=== PATIENT | male | born 1935 | race Caucasian/White ===

== ENCOUNTER → 2017-12-18 09:00 | Outpatient (CLI) | payer OTHER, SELFPAY | PROVIDERS: PCP Nurse Practitioner Family; Visit Provider Orthopaedic Surgery | DX: G56.01 Carpal tunnel syndrome, right upper limb (principal); Z47.89 Encounter for other orthopedic aftercare; G56.02 Carpal tunnel syndrome, left upper limb | CPT/HCPCS: 99213 ==

== ENCOUNTER 2018-01-10 07:50 | Outpatient (CLI) | payer OTHER, SELFPAY ==
--- NOTE | 2018-01-10 07:40 | W.PM.HP.N ---
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 His symptoms are similar to his left hand where he underwent a successful left E CTR on 07/15/2017. H symptoms are not as severe and as long of duration as his left hand. He is not troubled by any nightly waking secondary to numbness. He has not tried any splint use and is not tried nsaids for this side. With the good response of his left hand to the eCTR he made a decision he did want to wait as long as he did before embarking on the right side. Review of Systems Cardiovascular Denies chest pain with activity, Reports edema, Denies irregular heart rhythm, Denies palpitations, Denies dyspnea on exertion and Denies paroxysmal nocturnal dyspnea Respiratory Denies chest congestion, Denies pain on inspiration and Denies dyspnea on exertion Gastrointestinal Denies abdominal pain Endocrine Denies palpitations PFSH Family History Mother No problems noted. Father Heart failure Hypertension Sister Lupus Medical History Atopic dermatitis HLD (hyperlipidemia) HTN (hypertension) Social History current occupational status: retired Smoking/Tobacco Use Status: Former Tobacco Use how long ago did patient quit smoking: quit: cigarettes (age 19), pipe (age 26), chewing tobacco (mid 30s) alcohol intake: current alcohol intake frequency: a few times a week Alcohol type: beer and hard liquor seatbelt use: always drive intox or ride w/ intox driver helper: No working smoke detector in home: Yes carbon monox detector in home: Yes Surgical History Hx of appendectomy (Chronic) History of total left hip arthroplasty (Resolved) Hx of lumbar discectomy (Resolved) Endoscopic Carpal Tunnel release (Resolved 07/15/17) Meds Home Medications Medication Instructions Recorded Confirmed Type melatonin-pyridoxine HCl (B6) 3 mg PO HS 07/27/14 01/10/18 History ht-hp-rixx-FA-herbal cmplx#190 1 ea PO DAILY tab 06/17/15 01/10/18 History [Vitamin D3 Complete] Beet Cap 1 - 2 cap PO DAILY PRN 06/19/17 01/10/18 History Beet Power 2 ea PO DAILY PRN 06/19/17 01/10/18 History ascorbic acid (vitamin C) [Vitamin 500 mg PO DAILY 06/19/17 01/10/18 History C] vitamin B complex 1 ea PO DAILY PRN 06/19/17 01/10/18 History zinc 50 mg PO DAILY PRN 06/19/17 01/10/18 History saw palmetto-pumpkin seed oil 160 mg PO DAILY 07/11/17 01/10/18 History lisinopril 20 mg PO .TAKES Q4DAY A WEEK 01/10/18 01/10/18 History Allergies Allergy/AdvReac Type Severity Reaction Status Date / Time hydrochlorothiazide AdvReac Intermediate urinary Unverified 01/10/18 09:05 frequency, leg cramps CATS Allergy Severe BREATHING, Uncoded 01/10/18 09:05 SNEEZING, BURNING EYES Exam Const General: cooperative and no acute distress Nutritional Appearance: average body habitus Limitations: no behavioral limitations [facility] General nose exam: no nasal discharge Mouth: oral mucosae normal Neck Neck: anterior neck swelling, no JVD and other (no carotid bruits) Carotids: normal carotid upstroke and no bruits Resp Effort & Inspection: no audible wheezes and no cough Auscultation: clear to auscultation bilaterally Cardio Rate: regular rate Rhythm: regular rhythm Heart Sounds: S2 normal Bruits: no abdominal aortic bruits GI Inspection: normal to inspection Palpation: soft Other: Right hand shows no thenar atrophy there is positive Tinel's along with a positive median nerve compression test and Phalen's. He has subjective numbness in the median nerve innervated rays.
--- NOTE | 2018-01-10 07:45 | HPE_ITS ---
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 His symptoms are similar to his left hand where he underwent a successful left E CTR on 07/15/2017. H symptoms are not as severe and as long of duration as his left hand. He is not troubled by any nightly waking secondary to numbness. He has not tried any splint use and is not tried nsaids for this side. With the good response of his left hand to the eCTR he made a decision he did want to wait as long as he did before embarking on the right side. Review of Systems Cardiovascular Denies chest pain with activity, Reports edema, Denies irregular heart rhythm, Denies palpitations, Denies dyspnea on exertion and Denies paroxysmal nocturnal dyspnea Respiratory Denies chest congestion, Denies pain on inspiration and Denies dyspnea on exertion Gastrointestinal Denies abdominal pain Endocrine Denies palpitations PFSH Family History Mother No problems noted. 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 working smoke detector in home: Yes carbon monox detector in home: Yes Surgical History Hx of appendectomy (Chronic) History of total left hip arthroplasty (Resolved) Hx of lumbar discectomy (Resolved) Endoscopic Carpal Tunnel release (Resolved 07/15/17) Meds Home Medications Medication Instructions Recorded Confirmed Type melatonin-pyridoxine HCl (B6) 3 mg PO HS 07/27/14 01/10/18 History [id number]-kr-dgvb-FA-herbal cmplx#190 1 ea PO DAILY tab 06/17/15 01/10/18 History [Vitamin D3 Complete] Beet Cap 1 - 2 cap PO DAILY PRN 06/19/17 01/10/18 History Beet Power 2 ea PO DAILY PRN 06/19/17 01/10/18 History ascorbic acid (vitamin C) [Vitamin 500 mg PO DAILY 06/19/17 01/10/18 History C] vitamin B complex 1 ea PO DAILY PRN 06/19/17 01/10/18 History zinc 50 mg PO DAILY PRN 06/19/17 01/10/18 History saw palmetto-pumpkin seed oil 160 mg PO DAILY 07/11/17 01/10/18 History lisinopril 20 mg PO .TAKES Q4DAY A WEEK 01/10/18 01/10/18 History Allergies Allergy/AdvReac Type Severity Reaction Status Date / Time hydrochlorothiazide AdvReac Intermediate urinary Unverified 01/10/18 09:05 frequency, leg cramps CATS Allergy Severe BREATHING, Uncoded 01/10/18 09:05 SNEEZING, BURNING EYES Exam Const General: cooperative and no acute distress Nutritional Appearance: average body habitus Limitations: no behavioral limitations [facility] General nose exam: no nasal discharge Mouth: oral mucosae normal Neck Neck: anterior neck swelling, no JVD and other (no carotid bruits) Carotids: normal carotid upstroke and no bruits Resp Effort & Inspection: no audible wheezes and no cough Auscultation: clear to auscultation bilaterally Cardio Rate: regular rate Rhythm: regular rhythm Heart Sounds: S2 normal Bruits: no abdominal aortic bruits GI Inspection: normal to inspection Palpation: soft Other: Right hand shows no thenar atrophy there is positive Tinel's along with a positive median nerve compression test and Phalen's. He has subjective numbness in the median nerve innervated rays.
== END 2018-01-10 08:10 ==
PROVIDERS: PCP Nurse Practitioner Family; Visit Provider Orthopaedic Surgery
DX: G56.01 Carpal tunnel syndrome, right upper limb (principal); Z01.818 Encounter for other preprocedural examination

== ENCOUNTER 2018-02-03 08:31 | Day surgery (SDC) | payer OTHER, BC, SELFPAY ==
[2018-02-03 09:16] VITALS: BP 201/110; PULSE 86; RESP 16; TEMP 36.3; O2SAT 100
[2018-02-03] MEDS: Lactated Ringers 1,000 ML 80 ML IV (09:45)
--- NOTE | 2018-02-03 11:26 | PDOC.DSDIS_ITS ---
Discharge Plan Disposition Patient Disposition: HOME Condition: Good Discharge Details Attending Provider: Cristóbal Au Primary Care Provider: Bibi Schwab Home Meds and New Rx's Prescriptions: New hydrocodone-acetaminophen 5-325 mg tablet 1 tab PO Q6H PRN (Reason: pain) Qty: 7 RF: 0 Continue melatonin-pyridoxine HCl (B6) 1 EACH tablet 3 mg PO HS RF: 0 du-oe-rjtj-FA-herbal cmplx#190 [Vitamin D3 Complete] 1 EACH tablet 1 ea PO DAILY RF: 0 ascorbic acid (vitamin C) [Vitamin C] 500 MG tablet 500 mg PO DAILY RF: 0 zinc 50 MG tablet 50 mg PO DAILY PRNRF: 0 vitamin B complex 1 EACH capsule 1 ea PO DAILY PRNRF: 0 Beet Cap 1 - 2 cap PO DAILY PRNRF: 0 Beet Power 2 ea PO DAILY PRNRF: 0 saw palmetto-pumpkin seed oil 160 MG capsule 160 mg PO DAILY RF: 0 lisinopril 30 mg tablet 20 mg PO DAILY RF: 0 Discharge Instructions Additional Instructions: Elevate R hand above heart level as much as possible overnite tonite. Wiggle fingers R hand 10 times/hour when awake to prevent swelling. Take tylenol or ibuprofen for mild pain. Take hydrocodone for breakthru pain. Your fingers may feel more numb for 24 hours due to nerve block I put in to decrease post-op pain. Remove dressings and splint and start to move R wrist in 48 hours. May then shower or bathe and get incision wet. Leave incision uncovered when it is dry and sealed. May use R hand as much as your discomfort allows. Referrals: Cristóbal Au MD [ [facility] STAFF PHYSICIAN] - (Follow up in 10-14 days.) Equipment/Supplies: Splint Activity:: Activity as Tolerated Remove Dressings/Wound Care:: 48 hours Shower/Bathe:: 48 hours Diet:: As Tolerated Discharge Orders Discharge Orders: Discharge Order (Routine); Ordered 02/03/18 Ordered By: Cristóbal Au DS: Diagnosis Discharge Diagnosis (1) 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: Start date: 02/03/18 Start time: 11:25 Status: Acute
[2018-02-03 11:41] VITALS: BP 174/71; PULSE 77; RESP 16; TEMP 37.6; O2SAT 97
--- NOTE | 2018-02-03 20:03 | ROE_ITS ---
DATE OF PROCEDURE: February 03, 2018 PREOPERATIVE DIAGNOSIS: Carpal tunnel syndrome, right. POSTOPERATIVE DIAGNOSIS: Carpal tunnel syndrome, right. PROCEDURE: Endoscopic carpal tunnel release, right. SURGEON: Cristóbal Au M.D. ANESTHESIA: MAC to supplement local infiltration with 0.5% Marcaine with epinephrine solution by Luis Lomeli CRNA INDICATIONS: This is an 82-year-old white male with longstanding carpal tunnel syndrome on the right . He had reached the point that conservative measures were not alleviating the symptoms. He had had a previous endoscopic carpal tunnel release on the left with good results. He wished to have the sa me procedure on the right side to hopefully decrease his discomfort and improve his sensation in the median nerve distribution of the right hand. The risks and complications of the procedure were expla ined to the patient in detail preoperatively. PROCEDURE: Because of the patient's elevated diastolic blood pressure, MAC anesthesia with local inf iltration was selected. The patient's blood pressure was nicely controlled at 140/80 with the MAC. The right hand, wrist, and forearm were prepped and draped in the usual sterile fashion. A proximal tourniquet was applied to the right upper extremity and the right upper extremity was then exsanguina angelita by elevation for two minutes and then the tourniquet was inflated to 250 mmHg. I infiltrated over the proximal flexion crease of the right wrist with 0.5% Marcaine with epinephrine solution from the flexor carpal ulnaris to the to the flexor carpi radialis tendon. A transverse in cision was made in line with the flexion crease extending from the flexor carpi radialis to the flexo r carpi ulnaris tendon. The incision was carried down to the fascia. Subcutaneous veins were cauter ized. A distally-based fascial flap was then created to gain access to the carpal canal. I then per formed a median nerve block with 0.5% Marcaine with epinephrine solution for further analgesia. A synovial reflector was then inserted to free up any synovium attached to the undersurface of the vo lar carpal ligament. A series of obturators were inserted to make room for the endoscope. The April endoscope blade device was then inserted into the carpal canal. The endoscope was positioned against the hook of the hamate and then advanced until the distal edge of the volar carpal ligament was sam r visualized. At this point, the trigger was depressed, elevating the blade, and then the elevated blade was withdr awn proximally out through the incision, transecting the volar carpal ligament. The endoscope was th en replaced into the carpal canal and the median nerve was seen to fall into the defect caused by tra nsecting the volar carpal ligament. The endoscope was then removed. Littler scissors were then used to perform for a subcutaneous fasciotomy for about 2 inches proximal to the incision. The skin edges were approximated with two interrupted horizontal mattress sutures of #4-0 nylon sutur e material. Sterile dressings were applied of Xeroform gauze, sterile gauze 4x4s, and wrapped with a Kerlix bandage. It was then wrapped with a 3-inch Mitchell bandage and placed in a cock-up commercial wr ist splint. The tourniquet was released. The patient tolerated the procedure well. He was discharg ed to Recovery in good condition. The patient was discharged home from the Day Surgery Unit when fully recovered from his MAC anesthesi a. He was given instructions to elevate his right hand above heart level as much as possible overnig ht tonight. He is encouraged to wiggle his fingers on the right hand 10 times an hour while awake to prevent swelling. After 48 hours he is to remove his splint and dressings and begin to move his rig ht wrist. He may shower and get his incision wet after 48 hours. He is to leave the incision uncove red when it is dry and sealed. He may use his right hand as much as discomfort allows. He is given a prescription of 7 tablets of hydrocodone/APAP 5 mg/325 mg, 1 p.o. q.6h. p.r.n. for pain. He will f ollow up in Dr. Au's office in 10 to 14 days.
== END 2018-02-03 12:02 | disposition home or self-care (01) ==
PROVIDERS: PCP Nurse Practitioner Family; Visit Provider Orthopaedic Surgery
PROC: 01N54ZZ Release Median Nerve, Percutaneous Endoscopic Approach (ICD-10-PCS; CPT 29848; principal; 2018-02-03 10:00)
DX: G56.01 Carpal tunnel syndrome, right upper limb (principal)
CPT/HCPCS: 29848; J0690; J3010; L3908

== ENCOUNTER → 2018-02-13 09:50 | Outpatient (BNVA) | payer MEDICARE, BC, SELFPAY | PROVIDERS: PCP Nurse Practitioner Family; Referring Provider Nurse Practitioner Family; Visit Provider Orthopaedic Surgery | DX: G56.01 Carpal tunnel syndrome, right upper limb (principal); Z47.89 Encounter for other orthopedic aftercare ==

== ENCOUNTER 2018-06-09 16:51 | Outpatient (CLI) | payer OTHER, SELFPAY ==
--- NOTE | 2018-06-09 13:00 | DI.RAD_ITS ---
SYMPTOM/DIAGNOSIS: ? FOREIGN BODY, ? PLANTAR FASCITIS, M79.672, LT FOOT PAIN LEFT FOOT: Three views. No priors for comparison. No acute fracture or dislocation is seen. There are mild degenerative changes of the foot, particularly at the tarsal metatarsal joints and the intertarsal joints of the foot. There are also degenerative changes seen at the articulation between the sesamoids and the head of the first metatarsal. No radio-opaque foreign bodies are seen in the soft tissues. Vascular calcifications are present. IMPRESSION: No radio-opaque foreign body is seen in the soft tissues.
== END 2018-06-09 17:11 ==
PROVIDERS: PCP Nurse Practitioner Family; Visit Provider Nurse Practitioner Family
DX: M79.672 Pain in left foot (principal); M19.072 Primary osteoarthritis, left ankle and foot
CPT/HCPCS: 73630

== ENCOUNTER 2018-06-24 07:12 | Outpatient (CLI) | payer OTHER, BC, SELFPAY ==
[2018-06-24 08:45] LABS: Anion Gap 9.8 mmol/L (3-11); BUN 16 mg/dL (7-18); CO2 28.2 mmol/L (21.0-32.0); CREATININE 0.97 mg/dL (0.70-1.30); Calcium 9.2 mg/dL (8.5-10.1); Chloride 101 mmol/L (98-107); Glucose 93 mg/dL (70-100); Potassium 4.1 mmol/L (3.5-5.1); Sodium 139 mmol/L (136-145)
== END 2018-06-24 07:32 ==
PROVIDERS: PCP Nurse Practitioner Family; Visit Provider Nurse Practitioner Family
DX: I10 Essential (primary) hypertension (principal)
CPT/HCPCS: 36415; 80048

== ENCOUNTER → 2018-08-06 08:49 | Outpatient (BNVA) | payer OTHER, BC, SELFPAY | PROVIDERS: PCP Nurse Practitioner Family; Referring Provider Nurse Practitioner Family; Visit Provider Orthopaedic Surgery | DX: Z47.89 Encounter for other orthopedic aftercare (principal); G56.01 Carpal tunnel syndrome, right upper limb | CPT/HCPCS: 99212; 99213 ==

== ENCOUNTER 2019-11-15 14:33 | Emergency (ER) | payer OTHER, BC, SELFPAY ==
[2019-11-15 14:40] VITALS: BP 187/87; PULSE 111; RESP 20; TEMP 37.1; O2SAT 96
--- NOTE | 2019-11-15 14:50 | ED.GENADUL_ITS ---
Discharge Plan Disposition Patient Disposition: HOME Condition: Improving Discharge Details Chief Complaint: EarProblem Clinical Impression: Bilateral hearing loss due to cerumen impaction Primary Care Provider: Bibi Schwab ED Provider: Anna Aaron Home Meds and New Rx's Prescriptions: No Action metoprolol succinate 25 mg tablet extended release 24 hr 25 mg PO DAILY Qty: 90 RF: 3 melatonin-pyridoxine HCl (B6) 1 EACH tablet 3 mg PO HS RF: 0 Vitamin D3 Complete 1 EACH tablet 1 ea PO DAILY RF: 0 ascorbic acid (vitamin C) [Vitamin C] 500 MG tablet 500 mg PO DAILY RF: 0 zinc 50 MG tablet 50 mg PO DAILY PRNRF: 0 vitamin B complex 1 EACH capsule 1 ea PO DAILY PRNRF: 0 Beet Cap 1 - 2 cap PO DAILY PRNRF: 0 Beet Power 2 ea PO DAILY PRNRF: 0 saw palmetto-pumpkin seed oil 160 MG capsule 160 mg PO DAILY RF: 0 Discharge Instructions Instructions: Cerumen Impaction (ED) Additional Instructions: Follow up with primary care provider in 3-5 days. Return to ED sooner if any worsening or concerns. Increase oral fluids. Referrals: Bibi Schwab, MARY [Primary Care Provider] - Medical Decision Making 1534: Bilateral ears irrigated by our nursing staff patient tolerated well. Pr ocedure was successful. Was able to visualize bilateral tympanic membranes, non-erythemic nonbulging are both within normal limits patient reports increased hearing to bilateral ears. Patient to be discharged home with follow-up with primary care provider. HPI General Mode of arrival: ambulatory . Date/Time Provider Initiated Documentation: 11/15/19 14:35 . Limitations to Documentation: no limitations and physical limitation . Information obtained by: patient . HPI Narrative: 84-year-old male presents to the ER due to increased trouble hearing last 2 days. Reports cerumen impaction when she try to get out with a Q-tip which is unsuccessful. She has no other complaints at this time. He does present with some hypertension which he has not been taking any blood pressure medications and has not seen his primary care in the last year and a half. Initial exam bilateral ear canals are impacted with cerumen, denies any ear pain or any other complaints at this time denies any sore throat, chest pain, shortness of breath or URI type symptoms. Related Data Home Medications Medication Instructions Recorded Confirmed melatonin-pyridoxine HCl (B6) 3 mg PO HS 07/27/14 11/15/19 Vitamin D3 Complete 1 ea PO DAILY tab 06/17/15 11/15/19 Beet Cap 1 - 2 cap PO DAILY PRN 06/19/17 11/15/19 Beet Power 2 ea PO DAILY PRN 06/19/17 11/15/19 ascorbic acid (vitamin C) [Vitamin 500 mg PO DAILY 06/19/17 11/15/19 C] vitamin B complex 1 ea PO DAILY PRN 06/19/17 11/15/19 zinc 50 mg PO DAILY PRN 06/19/17 11/15/19 saw palmetto-pumpkin seed oil 160 mg PO DAILY 07/11/17 11/15/19 metoprolol succinate 25 mg 25 mg PO DAILY #90 tab-cap 07/02/19 07/02/19 tablet,extended release 24 hr Previous Rx's Medication Instructions Recorded metoprolol succinate 25 mg 25 mg PO DAILY #90 tab-cap 07/02/19 tablet,extended release 24 hr Allergies Allergy/AdvReac Type Severity Reaction Status Date / Time hydrochlorothiazide AdvReac Intermediate urinary Unverified 11/15/19 14:50 frequency, leg cramps CATS Allergy Severe BREATHING, Uncoded 11/15/19 14:50 SNEEZING, BURNING EYES General Stated Complaint: EarProblem ROM: 4 Review of Systems All systems reviewed & are unremarkable except as noted in HPI and below Constitutional Constitutional: Denies headache(s) ENT Ears, Nose, Mouth, and Throat: Denies ear discharge, Denies otalgia, Denies headache(s), Reports hearing loss (Bilateral cerumen impaction) and Denies odynophagia Gastrointestinal Gastrointestinal: Denies odynophagia Neurologic Neurologic: Denies headache(s) [facility] Medical History 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) Atopic dermatitis (Chronic 07/13/13) Essential hypertension (Chronic 03/22/14) declines ANY medications consistently Heel pain, chronic (Chronic) Hyperlipidemia (Chronic 10/29/14) risk calc 45.8% with BP 180 10/29/14; declines meds; Lifestyle: eats lots of fish, fruit, veg, blue berries, no sugar Paresthesia of hand (Chronic 01/25/14) L>>R, nocturnal, ?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 No problems noted. 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 Working smoke detector in home: Yes Carbon monox detector in home: Yes Do you feel safe at home: Yes Do you feel safe in your relationship?: Yes Exam HENMT Head: normal to inspection Ears: external ears normal and unable to visualize TM bilaterally (Cerumen impaction) General nose exam: external nose normal Face and sinus: normal facial exam Mouth: oral mucosae normal Course Vital Signs Vital signs: Vital Signs Temperature 37.1 C 11/15/19 14:40 Pulse 111 H 11/15/19 14:40 Respiratory Rate 11/15/19 14:40 Blood Pressure 187/87 H 11/15/19 14:40 Pulse Oximetry 96 11/15/19 14:40 Temperature 37.1 C 11/15/19 14:40 Temperature Source Skin 11/15/19 14:40 Pulse 111 H 11/15/19 14:40 Respiratory Rate 20 11/15/19 14:40 Respiratory Effort Non-Labored 11/15/19 14:47 Blood Pressure 187/87 H 11/15/19 14:40 Blood Pressure Position Sitting 11/15/19 14:40 Pulse Oximetry 96 11/15/19 14:40 Oxygen Delivery Method Room Air 11/15/19 14:40 Oxygen Flow Rate 0 11/15/19 14:40
[2019-11-15 15:42] VITALS: BP 176/89; PULSE 99; RESP 20; TEMP 36.8; O2SAT 96
== END 2019-11-15 15:45 | disposition home or self-care (01) ==
PROVIDERS: Emergency Provider Registered Nurse Emergency; PCP Nurse Practitioner Family
DX: H61.23 Impacted cerumen, bilateral (principal); I10 Essential (primary) hypertension
CPT/HCPCS: 69209; 99282

== ENCOUNTER 2021-10-08 20:54 | Inpatient (IN) | payer MEDICARE, SELFPAY ==
[2021-10-08] VITALS (29 sets, daily range): BP systolic 121–156; BP diastolic 65–131; PULSE 104–125; RESP 13–28; TEMP 36.8; O2SAT 95–99
--- NOTE | 2021-10-08 20:45 | DI.CT_ITS ---
Exam(s) CT HEAD WO EXAM: CT HEAD WO CLINICAL HISTORY: found down, fall. TECHNIQUE: Imaging Protocol: Axial computed tomography images with coronal and sagittal reformatted images were created and reviewed COMPARISON: No exams were available for comparison FINDINGS: The examination is limited due to patient motion artifact. Ventricles and Extra axial spaces: Normal in size and morphology for the patient's age. Hemorrhage: None. Cerebral parenchyma: There is no acute territorial infarct identified. There are areas of decreased attenuation in the white matter most consistent with small vessel ischemic disease. Midline shift: None. Brainstem/Cerebellum: Normal. Calvarium: Normal. Visualized Paranasal sinuses/Mastoids: Clear. Soft Tissues: Unremarkable. IMPRESSION: No acute intracranial process. RADIATION DOSE DELIVERED: 1,397.43mGy.cm Total DLP DATA REPOSITORY: All CT scans at this facility are submitted to the National Radiology Data Registry (NRDR) Dose Index Registry (DIR) with the [employer] [place] (A[employer]). RADIATION OPTIMIZATION: All CT scans at this facility use at least one of these dose optimization te chniques: automated exposure control; mA and/or kV adjustment per patient size (includes targeted exa ms where dose is matched to clinical indication); or iterative reconstruction.
--- NOTE | 2021-10-08 20:45 | RT.EKG_ITS ---
APPROVED REPORT Exam: Resting ECG Reason for Exam: rapid heart rate Patient Location: E HR:118 bpm ECG Measurements Heart Rate 118 AXIS HI 131 P 60 QRSd 89 QRS 2 QT 327 T 35 QTc 459 Conclusion Sinus tachycardia...rate> 99 Atrial premature complex...SV complex w/ short R-R interval Inferior infarct, old...Q >35mS, II III aVF sinus tachycardia, left axis, non ischemic
--- NOTE | 2021-10-08 20:45 | DI.RAD_ITS ---
Exam(s) XR PELVIS AP EXAM: XR PELVIS AP CLINICAL HISTORY: foudn down. TECHNIQUE: 2D digital imaging was performed. One view is obtained. COMPARISON: No exams were available for comparison FINDINGS: BONES: No acute fracture is present. No bony destructive lesion is seen. The bones are osteopenic. JOINTS: No dislocation present. There are degenerative changes seen in the lower lumbar spine in the right hip. The patient has a left total hip replacement. The distal femoral stem is not included on the examination. Portions of the left greater trochanter are not well visualized due to technique. SOFT TISSUE: Atherosclerosis is present. IMPRESSION: No acute fracture or dislocation. DATA REPOSITORY: RADIATION DOSE DELIVERED:
--- NOTE | 2021-10-08 21:00 | RT.EKG_ITS ---
APPROVED REPORT Exam: Resting ECG Reason for Exam: tachycardia Patient Location: E HR:123 bpm ECG Measurements Heart Rate 123 AXIS ME 136 P 46 QRSd 77 QRS -15 QT 336 T 25 QTc 482 Conclusion Sinus tachycardia...rate> 99 Supraventricular bigeminy...bigeminy string>4 w/ SV complexes Inferior infarct, old...Q >35mS, II III aVF sinus tachycardia, left axis, normal intervals, PAC, non ischemic
--- NOTE | 2021-10-08 21:01 | DI.RAD_ITS ---
Exam(s) XR CHEST 1V IN DI DEPT EXAM: XR CHEST 1V IN DI DEPT CLINICAL HISTORY: found down, tachycardia TECHNIQUE: 2D digital imaging was performed of the chest. One image was obtained. An AP view was ob tained. COMPARISON: There are no priors for comparison. FINDINGS: MEDIASTINUM: Normal. HEART: Normal. PULMONARY VASCULATURE: Normal. LUNGS: Clear. PLEURAL SPACE: No pleural effusion or pneumothorax. BONE:Within normal limits for the patient's age. OTHER FINDINGS:Normal. IMPRESSION: No acute pulmonary findings. DATA REPOSITORY: RADIATION DOSE DELIVERED:
--- NOTE | 2021-10-08 21:03 | W.ED.GENAD ---
Discharge Plan Disposition Patient Disposition: [facility] INPATIENT Condition: Fair Discharge Details Chief Complaint: GenMedical Clinical Impression: Rhabdomyolysis, Dehydration, Acute UTI Primary Care Provider: Bibi Schwab ED Provider: Flip Olvera Home Meds and New Rx's Prescriptions: No Action metoprolol succinate 25 mg tablet extended release 24 hr 25 mg PO DAILY Qty: 90 3RF melatonin-pyridoxine HCl (B6) 1 EACH tablet 3 mg PO HS Vitamin D3 Complete 1 EACH tablet 1 ea PO DAILY Label Comments: takes vitamin B, C, D, E ascorbic acid (vitamin C) [Vitamin C] 500 MG tablet 500 mg PO DAILY zinc 50 MG tablet 50 mg PO DAILY PRN vitamin B complex 1 EACH capsule 1 ea PO DAILY PRN Label Comments: 10/09/17 Does not take regularly. zn Rx Instructions: Takes irregularly Beet Cap 1 - 2 cap PO DAILY PRN Beet Power 2 ea PO DAILY PRN saw palmetto-pumpkin seed oil 160 MG capsule 160 mg PO DAILY Medical Decision Making 86-year-old male no past medical history found down at home, endorses he fell and has been on the ground for approximately 1 to 2 days, alert moving all extremities however appears severely dehydrated, dry oral mucosa poor skin turgor, superficial abrasions to bilateral elbows and knees, covered in urine, conjunctiva normal, responding appropriately, sinus tachycardia with possible ST elevation leads II, III, aVF without reciprocal changes deep Q waves in inferior leads concerning for possible old infarct, consider mechanical fall versus PE versus dehydration versus electrolyte abnormality versus must consider ACS versus infectious etiology given tachycardia and fever such as pneumonia UTI or viral syndrome, low suspicion for CVA or intracranial hemorrhage however given age and trauma will obtain CT head, also obtain chest x-ray pelvic x-ray, labs blood cultures CK level urinalysis drug screen, will require hydration, was given aspirin in the field given questionable ST elevations on monitor; patient denies chest pain at this time. Will likely be admitted for hydration and further evaluation. 00: 18 patient resting comfortably, improvement of mental status, persistently tachycardic will require more hydration given rhabdo. Close monitoring fluid hydration trend of troponin, Dr. Moses will be starting ceftriaxone for UTI HPI General Date/Time Provider Initiated Documentation: 10/08/21 20:59. HPI Narrative: 86-year-old male unclear past medical history presents found down at home, endorses falling while cooking breakfast 1 to 2 days ago; denies current complaints such as headache chest pain abdominal pain nausea vomiting, found to be febrile here in the field, fingerstick normal, tachycardia Related Data Home Medications Medication Instructions Recorded Confirmed melatonin-pyridoxine HCl (vitamin 3 mg PO HS 07/27/14 11/15/19 B6) 3 mg-10 mg tablet multivit with 1 ea PO DAILY 06/17/15 11/15/19 [id number] 18 mg iron-800 mcg-150 mg tablet (Vitamin D3 Complete) Beet Cap 1 - 2 cap PO DAILY PRN 06/19/17 11/15/19 Beet Power 2 ea PO DAILY PRN 06/19/17 11/15/19 ascorbic acid (vitamin C) 500 mg 500 mg PO DAILY 06/19/17 11/15/19 tablet (Vitamin C) vitamin B complex 1 ea PO DAILY PRN 06/19/17 11/15/19 zinc 50 mg tablet 50 mg PO DAILY PRN 06/19/17 11/15/19 saw palmetto-pumpkin seed oil 160 160 mg PO DAILY 07/11/17 11/15/19 mg capsule metoprolol succinate 25 mg 25 mg PO DAILY #90 tab-caps 07/02/19 07/02/19 tablet,extended release 24 hr Previous Rx's Medication Instructions Recorded metoprolol succinate 25 mg 25 mg PO DAILY #90 tab-caps 07/02/19 tablet,extended release 24 hr Allergies Allergy/AdvReac Type Severity Reaction Status Date / Time hydrochlorothiazide AdvReac Intermediate urinary Unverified 10/08/21 21:05 frequency, leg cramps CATS Allergy Severe BREATHING, Uncoded 10/08/21 21:05 SNEEZING, BURNING EYES General Stated Complaint: GenMedical ROM: 2 Review of Systems Narrative: Review of Systems Constitutional: Generalized weakness Eyes: negative ENT: negative Cardiovascular: Tachycardia Respiratory: negative Gastrointestinal: negative : negative Musculoskeletal: negative Skin: Abrasions Neurologic: negative Psych: negative PFSH All Active Problems (Updated 10/09/21 @ 00:20 by Flip Olvera MD) Rhabdomyolysis (Acute) Dehydration (Acute) Acute UTI (Acute) Snoring (Chronic) 01/2018: declines Sleep Medicine eval; 06/2019: continues to decline 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) Heel pain, chronic (Chronic) Paresthesia of hand (Chronic 01/25/14) L>>R, nocturnal, ?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 (also h/o laceration L thumb); 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 No problems noted. 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 Working smoke detector in home: Yes Carbon monox detector in home: Yes Do you feel safe at home: Yes Do you feel safe in your relationship?: Yes Exam Narrative Exam Narrative: Physical Examination General: alert, awake, cooperative, appears dry HEENT: normocephalic, atraumatic; PERRL, EOM intact, conjunctiva normal; no nasal discharge; dry oral mucosa Neck: supple, trachea midline; full ROM Chest: normal to inspection Respiratory: normal respiratory effort, speaking in full sentences, clear to auscultation, no wheezing, rales or rhonchi Cardiac: Tachycardia, regular rhythm, S1S2 intact, no murmurs rubs or gallops GI: abdomen soft, non-tender, non-distended; no palpable mass or hepatosplenomegaly Skin: Superficial abrasions to bilateral knees and bilateral elbows; poor skin turgor Neuro: AAOx3, normal speech, moving all extremities, no focal deficits cranial nerves II through XII intact Extremities: No peripheral edema Psych: Appropriate mood and affect Course Vital Signs Vital signs: Vital Signs Temperature 36.8 C 10/08/21 20:54 Pulse 125 H 10/08/21 20:54 Respiratory Rate 24 10/08/21 20:54 Blood Pressure 151/80 H 10/08/21 20:54 Temperature 36.8 C 10/08/21 20:54 Temperature Source Oral 10/08/21 20:54 Pulse 125 H 10/08/21 20:54 Respiratory Rate 24 10/08/21 20:54 Blood Pressure 151/80 H 10/08/21 20:54 Blood Pressure Position Supine 10/08/21 20:54 Oxygen Delivery Method Room Air 10/08/21 20:54 Oxygen Flow Rate 0 10/08/21 20:54 Pain Level 1 10/08/21 20:54 Lab/Test Results Lab/Test Results: 10/08/21 21:02 Blood Blood Culture - Pending 10/08/21 21:02 Blood Blood Culture - Pending
[2021-10-08 21:13] LABS: BE (Venous) 0 mmol/L (-2-3); HCO3 (Venous) 25 mmol/L (23-28); O2 Sat (Venous) 47 %; TCO2 (Venous) 22 mmol/L (24-29); pCO2 (Venous) 40 mmHg (41-51); pO2 (Venous) 25 mmHg
[2021-10-08 21:14] LABS: Abs Immature Grans 0.09 10^3/uL (0.0-0.06); Absolute Basophil Count 0.03 10^3/uL (0.0-0.2); Absolute Monocyte Count 1.53 10^3/uL (0.1-0.8); Basophils % 0.2; HCT 47.7 % (40.0-50.0); HGB 16.3 g/dL (13.5-17.5); Immature Grans % 0.6; Lymphocytes % 4.1; MCH 32.5 pg (27.0-33.0); MCHC 34.2 % (32.0-36.0); MCV 95 fL (80-95); MPV 10.3 fL (8.0-11.0); Monocytes % 9.7; Neutrophils % 85.4; Platelet Count 165 10^3/uL (130-400); RBC 5.01 10^6/uL (4.36-5.78); RDW 13.4 % (11.8-14.1); RDW-SD 47.5 fL; WBC 15.79 10^3/uL (4.4-10.8)
[2021-10-08 21:21] LABS: Absolute Lymphocyte Count 0.65 10^3/uL (1.2-3.4); Absolute Neutrophil Count 13.48 10^3/uL (1.2-6.7)
[2021-10-08 21:26] LABS: Bilirubin Moderate (Negative); Blood Large (Negative); Clarity Cloudy (Clear); Glucose Negative (Negative); Ketones 40 mg/dL (Negative); Leukocyte Esterase Negative (Negative); Nitrite Negative (Negative); Specific Gravity >= 1.030 (1.005-1.025); Urobilinogen 0.2 EU/dL (Up TO 0.2)
[2021-10-08 21:30] LABS: Diff Comment Diff Reviewed; RBC Morphology Normal
[2021-10-08 21:32] LABS: INR 1.1 (0.9-1.1); PTT Activated 28.6 sec (21.0-27.5); Prothrombin Time 11.2 sec (9.3-11.0)
[2021-10-08 21:34] LABS: Epithelial Cells Negative HPF (Negative)
[2021-10-08 21:35] LABS: Bacteria Negative HPF (Negative); C & S Indicated? Yes; Crystals Moderate Amorphous HPF (Negative); Mucus Moderate (Negative); Other Cells Few Transitional (Negative)
[2021-10-08 21:37] LABS: ALT 113 U/L (16-63); AST 231 U/L (15-37); Albumin 3.1 g/dL (3.4-5.0); Alkaline Phosphatase 59 U/L (46-116); Anion Gap 12.2 mmol/L (3-11); BUN 32 mg/dL (7-18); CO2 25.8 mmol/L (21.0-32.0); CREATININE 1.3 mg/dL (0.70-1.30); Calcium 8.9 mg/dL (8.5-10.1); Chloride 106 mmol/L (98-107); Estimated GFR 52.47 (mL/min/1.73m2); Glucose 133 mg/dL (74-106); Lipase 18 U/L (73-393); Potassium 3.6 mmol/L (3.5-5.1); Sodium 144 mmol/L (136-145); TSH (W/Ref FT4) 1.57 uIU/mL (0.36-3.74); Total Protein 7.4 g/dL (6.4-8.2)
[2021-10-08] MEDS: Normal Saline 1,000 ML 1000 ML IV (21:37)
[2021-10-08 21:43] LABS: Troponin I 823 ng/L (<or=60)
[2021-10-08 21:44] LABS: *AMPHETAMINES SCREEN URINE Negative (Negative); *BARBITURATES SCREEN URINE Negative (Negative); *BENZODIAZEPINES SCREEN URINE Negative (Negative); Cannabinoids THC Negative (Negative); Cocaine Screen,Urine Negative (Negative); METHADONE URINE SCREEN Negative (Negative); OPIATES URINE SCREEN Negative (Negative)
[2021-10-08 21:47] LABS: Tricyclic Antidepressants Negative (Negative)
[2021-10-08 21:48] LABS: ETHANOL BLOOD < 3.0 mg/dL (<10)
[2021-10-08 21:50] LABS: Creatine Kinase 8469 U/L (39-308)
[2021-10-08 22:05] LABS: COVID-19 PCR Negative (Negative); Influenza A PCR Negative (Negative); Influenza B PCR Negative (Negative); RSV PCR Negative (Negative)
--- NOTE | 2021-10-08 23:20 | DI.VRAD_ITS ---
PROCEDURE INFORMATION: Exam: XR Chest Exam date and time: 10/08/2021 22:35 Age: 86 years old Clinical indication: Patient HX: Found down, tachycardia TECHNIQUE: Imaging protocol: Radiologic exam of the chest. Views: 1 view. COMPARISON: No relevant prior studies available. FINDINGS: Lungs: No consolidation. Pleural spaces: No pleural effusion. No pneumothorax. Heart/Mediastinum: No cardiomegaly. Bones/joints: No acute fracture. IMPRESSION: Negative portable chest. Dictated and Authenticated by: Dannielle Rea MD. Ordering:OLEG Castelan MD
--- NOTE | 2021-10-08 23:20 | DI.VRAD_ITS ---
PROCEDURE INFORMATION: Exam: CT Head Without Contrast Exam date and time: 10/08/2021 22:20 Age: 86 years old Clinical indication: Injury or trauma; Blunt trauma (contusions or hematomas); Consciousness not specified; Injury date: 10/06/21; Injury details: Fall on Saturday, unable to get up for 2 days; Patient HX: Found down, fall TECHNIQUE: Imaging protocol: Computed tomography of the head without contrast. Radiation optimization: All CT scans at this facility use at least one of these dose optimization techniques: automated exposure control; mA and/or kV adjustment per patient size (includes targeted exams where dose is matched to clinical indication); or iterative reconstruction. COMPARISON: No relevant prior studies available. FINDINGS: Brain: Physiologic calcification in the basal ganglia. Atrophy and chronic appearing white matter changes. No edema or hemorrhage. Cerebral ventricles: Ex vacuo dilation of the ventricular system. Paranasal sinuses: No acute sinusitis. Mastoid air cells: No mastoid effusion. Bones/joints: Mild motion artifact with no displaced or significant appearing calvarial fracture. Soft tissues: Scattered mild facial swelling. No hematoma. IMPRESSION: No acute intracranial findings. Dictated and Authenticated by: Dannielle Rea MD. Ordering:OLEG Castelan MD
--- NOTE | 2021-10-08 23:20 | DI.VRAD_ITS ---
PROCEDURE INFORMATION: Exam: XR Pelvis Exam date and time: 10/08/2021 22:30 Age: 86 years old Clinical indication: Injury or trauma; Blunt trauma (contusions or hematomas); Does not apply; Pelvic region; Injury date: 10/06/21; Patient HX: Found down, fall TECHNIQUE: Imaging protocol: Radiologic exam of the pelvis. Views: 1 or 2 view. COMPARISON: CR LEFT HIP 1 VIEW 06/15/2015 09:41 FINDINGS: Bones/joints: Left total hip arthroplasty appears anatomic as visualized, distal-most stem not imaged.Bones/joints: The bones are demineralized. Degenerative changes in the right hip. No acute fracture or subluxation. Soft tissues: Unremarkable. Vasculature: Atherosclerosis. IMPRESSION: No acute bony pathology. Dictated and Authenticated by: Dannielle Rea MD. Ordering:OLEG Castelan MD
[2021-10-09] VITALS (51 sets, daily range): BP systolic 102–156; BP diastolic 54–110; PULSE 88–129; RESP 15–26; TEMP 36.6–38.8; O2SAT 91–97
--- NOTE | 2021-10-09 | DI.US_ITS ---
APPROVED REPORT EXAM: Comprehensive 2D, Doppler, and color-flow Echocardiogram Patient Location: In-Patient Room/Bed: [id number] Hospital Technician: Bri Degroot RDCS (AE) Indications: Elevated troponin Other Information Study Quality: Fair. Technically limited study due to body habitus, inability to position patient. Conclusion Left Ventricle : The left ventricle is normal size. Left ventricular systolic function is low normal. There is normal left ventricular wall thickness. There is mild global hypokinesis of the left ventri calixto. LVEF is 50%. Right Ventricle : Right ventricle is grossly normal in size. Right ventricular systolic function is g rossly normal. The RVSP is 26.4 mmHg. Atria : Left atrium is not well visualized. Right atrium is not well visualized. Mitral Valve : Mild mitral annular calcification. Trace to mild mitral regurgitation. No evidence of mitral valve stenosis. Great Vessels : The aortic root is normal in size. Ascending aorta is not well visualized. Aortic arc h is not well visualized. IVC is normal in size and collapses >50% with inspiration. There is no prior study available for comparison Wall motion Left Ventricle The left ventricle is normal size. Left ventricular systolic function is low normal. There is normal left ventricular wall thickness. There is mild global hypokinesis of the left ventricle. There is no ventricular septal defect visualized. LVEF is 50%. Right Ventricle Right ventricle is grossly normal in size. Right ventricular systolic function is grossly normal. The RVSP is 26.4 mmHg. Atria Left atrium is not well visualized. Right atrium is not well visualized. The interatrial septum is in tact with no evidence for an atrial septal defect. Aortic Valve The Aortic valve is sclerotic. Aortic valve is probably trileaflet. There is no aortic valvular steno sis. No aortic regurgitation is present. Mitral Valve Mild mitral annular calcification. No evidence of mitral valve stenosis. Trace to mild mitral regurgi tation. Tricuspid Valve The tricuspid valve is normal in structure. There is no tricuspid valve stenosis. Trace to mild tricu spid regurgitation. Pulmonic Valve Pulmonic valve is not well visualized. There is no pulmonic valvular stenosis. There is no pulmonic v alvular regurgitation. Great Vessels The aortic root is normal in size. Ascending aorta is not well visualized. Aortic arch is not well vi sualized. IVC is normal in size and collapses >50% with inspiration. Pericardium There is no pericardial effusion. 2D Dimensions IVSD d PLAX 1.07 cm M: 0.6-1.2 LV Vol A2C d MOD 89.1 mL LVPW d PLAX 1.08 cm M: 0.6 - 1.2 LV Vol A4C d MOD 94.2 mL LVID d PLAX 4.49 cm M: 4.2 - 5.8 LA vol/ BSA A4C s A-L 20.8 mL/m2 LVDs 3.30 cm M: 2.5 - 4.0 LA Area A4C s MOD 16.17 cm2 Ao Root d 3.44 cm M: 3.1 - 3.7 LV EF A4C MOD 50.2 % LV EF Teichholz 50.4 % LV EF A2C MOD 50.9 % LVEF (Hewitt's) 52.16 % M: 52 - 72 LV EF Biplane MOD 52.2 % LV Volume 78.40 mL M: 62 - 150 SV 54.59 mL LV Volume Index 39.20 mL/m2 M: 34 - 74 SV Index 27.19 mL/m2 LV Vol Biplane MOD 104.7 mL FS 25.45 % M-Mode TAPSE 1.84 cm (M/F) >1.7 LV Diastology MV E' medial 0.059 (>0.07 m/s) E/A Ratio 0.7 LV E/e MED 9.85 (<14) MV E Vmax 0.58 (0.4-1.3 m/s) MV E' lateral 0.061 (>0.1 m/s) MV A Vmax 0.80 (0.4-1.3 m/s) LV E/e LAT 9.45 (<14) MV E/A Ratio 0.69 MV E/E' medial 9.89 MV E/E' lateral 9.49 Aortic Valve LVOT Area 3.65 cm2 AoV Area Vmax 3.91 cm2 LVOT Vmax 1.00 m/s AoV Area/ BSA (Vmax) 1.95 cm2/m2 LVOT Mean Tenzin. 0.78 m/s NICOLE Mean Tenzin. 4.02 cm2 LVOT Peak Grad 4.0 mmHg NICOLE Mean Tenzin. Index 2.00 cm2/m2 LVOT Mean Grad 2.7 mmHg LVOT VTI 0.167 m LVOT Diam s 2.15 cm AoV Vmax 0.93 m/s Velocity Ratio 1.07 AoV Mean Tenzin. 0.70 m/s AoV Peak Grad 3.5 mmHg LVOT SV 60.99 mL AoV Mean Grad 2.2 mmHg AoV VTI 0.184 m AoV Area VTI 3.32 cm2 AoV Area/ BSA (VTI) 1.65 cm/m2 Mitral Valve MV DT 209 (160-240 msec) MV PHT 60 msec MV Area PHT 3.64 cm2 MV VTI 0.190 m MV Area VTI 3.21 (4.0-6.0 cm2) Pulmonary Valve PV Vmax 1.04 (0.5-1.5 m/s) RVOT Peak Gr. 0.34 mmHg PV Peak Grad 4.4 mmHg RVOT Mean Gr. 0.20 mmHg PV Mean Grad 2.9 mmHg RVOT VTI 0.032 m PV VTI 0.145 m RVOT Vmax 0.29 m/s Tricuspid Valve TR Peak Grad 23.4 mmHg TR Vmax 2.42 m/s RA Pressure 3.00 mmHg RVSP (TR) 26.4 mmHg
--- NOTE | 2021-10-09 | DI.RAD_ITS ---
Exam(s) XR ELBOW RT COMPLETE EXAM: XR ELBOW RT COMPLETE CLINICAL HISTORY: elbow pain; limited ROM; s/p fall. TECHNIQUE: 2D digital imaging was performed of the left elbow. Three images were obtained. AP, lat eral and oblique views were obtained. COMPARISON: No exams were available for comparison FINDINGS: BONES: No acute fracture is present. No bony destructive lesion is seen. There is calcifications seen near the triceps insertion which may represent calcific tendinitis. JOINTS: The elbow is normally aligned. Mild arthritic changes are seen in the elbow. SOFT TISSUE: Normal. IMPRESSION: No acute fracture or dislocation is present. DATA REPOSITORY: RADIATION DOSE DELIVERED:
--- NOTE | 2021-10-09 | DI.RAD_ITS ---
Exam(s) XR HIP LT 1V EXAM: XR HIP LT 1V CLINICAL HISTORY: left hip pain. TECHNIQUE: 2D digital imaging was performed of the left hip. One views were obtained. AP view of t he left hip to include the entire prosthesis. COMPARISON: CR,XR XR PELVIS AP from 10/08/2021 FINDINGS: BONES: No acute fracture is present. No bony destructive lesion is seen. JOINTS: No dislocation present. The femoral prosthesis is visualized and is intact. SOFT TISSUE: Atherosclerosis. IMPRESSION: No acute fracture or dislocation. DATA REPOSITORY: RADIATION DOSE DELIVERED:
--- NOTE | 2021-10-09 00:19 | HPE_ITS ---
Date of service: 10/09/21 Time of Service: 00:20 Assessment and Plan Assessment and plan (1) Rhabdomyolysis: Status: Acute Assessment and plan: Rhabdo secondary to mechanical fall with immobilization. Mild azotemia which is more likely from dehydration than direct renal injury from rhabdo. Will hydrate and trend CPK. The other issues are: 1. Troponin: more likely than not due to rhabdo, though cannot exclude demand ischemia (from sinus tach). Does not at all look like ACS. Will trend trops 2. Sinus tach: possible causes include dehydration, Etoh withdrawal and beta luigi withdrawal (I note Lopressor on med list though unconfirmed, but if this in fact a current med he presumably would not have been able to take it while down) 3. EtOH: will monitor on CIWA. I do note modest elevation in transaminases. While this could be related to rhabdo the AST/ALT ration suggests possible alcoholic liver injury 4. Med list: need confirmation 5. Pyuria, r/o UTI. Will give Rocephin pending cultures Reviewed ADs, requests Full Code. History of Present Illness History of Present Illness Chief Complaint: found down Narrative: 86 male reports mechanical fall one day [employer], could not get up due to pain in hip, lay on floor until neighbor came to check on him. Here in ER initial findings of note for evident dehydration, sinus tachycardia; CPK 8469, AST 231, ALT 113; troponin 823, pyuria (10-20 WBC); CXR, head CT and pelvic/hip films negative. EKG sinus tach, no ST-TW changes. Patient given IVF. I was asked to evaluate for admission. Patient was reported to initially be somewhat confused but at this point family is describing him as mostly himself. Does not smoke; has four watered down glasses of spirits a day, denies h/o withdrawal symptoms. 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 No problems noted. 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 automobile drivers: No Working smoke detector in home: Yes Carbon monox detector in home: Yes Do you feel safe at home: Yes Do you feel safe in your relationship?: Yes Meds Allergies and Home Medications Allergies Allergy/AdvReac Type Severity Reaction Status Date / Time hydrochlorothiazide AdvReac Intermediate urinary Unverified 10/08/21 21:05 frequency, leg cramps CATS Allergy Severe BREATHING, Uncoded 10/08/21 21:05 SNEEZING, BURNING EYES Home Medications Medication Instructions Recorded Confirmed Type melatonin-pyridoxine HCl (vitamin 3 mg PO HS 07/27/14 11/15/19 History B6) 3 mg-10 mg tablet multivit with 1 ea PO DAILY 06/17/15 11/15/19 History [id number] 18 mg iron-800 mcg-150 mg tablet (Vitamin D3 Complete) Beet Cap 1 - 2 cap PO DAILY PRN 06/19/17 11/15/19 History Beet Power 2 ea PO DAILY PRN 06/19/17 11/15/19 History ascorbic acid (vitamin C) 500 mg 500 mg PO DAILY 06/19/17 11/15/19 History tablet (Vitamin C) vitamin B complex 1 ea PO DAILY PRN 06/19/17 11/15/19 History zinc 50 mg tablet 50 mg PO DAILY PRN 06/19/17 11/15/19 History saw palmetto-pumpkin seed oil 160 160 mg PO DAILY 07/11/17 11/15/19 History mg capsule metoprolol succinate 25 mg 25 mg PO DAILY #90 tab-caps 07/02/19 07/02/19 Rx tablet,extended release 24 hr Exam Narrative Exam Narrative: 149/93, 119, 36.8, 19, 97% RA. HEENT atraumatic; neck supple; lu8ngs clear; heart tachy/regular; abdomen soft and NT; extremities w/o edema; pulses 2+/=, minimal abrasions over both knees, from hips and no pelvic tenderness; neuro Ox3, occasionally hard to follow but generally lucid, moves all 4s Results Labs Result diagrams: 10/08/21 21:06 10/08/21 21:06 Labs: Laboratory Results - last 24 hr 10/08/21 10/08/21 10/08/21 21:06 21:06 21:06 WBC 15.79 H RBC 5.01 Hgb 16.3 Hct 47.7 MCV 95 MCH 32.5 MCHC 34.2 RDW 13.4 Plt Count 165 MPV 10.3 Immature Gran % 0.6 Neutrophils % 85.4 Lymphocytes % 4.1 Monocytes % 9.7 Eosinophils % 0.0 Basophils % 0.2 Nucleated RBC % 0.0 Absolute Neutrophils 13.48 H Absolute Lymphocytes 0.65 L Absolute Monocytes 1.53 H Absolute Eosinophils 0.00 Absolute Basophils 0.03 RBC Morphology Normal PT 11.2 H INR 1.1 APTT 28.6 H VBG pH VBG pCO2 VBG pO2 VBG HCO3 VBG Total CO2 VBG O2 Saturation VBG Base Excess Sodium 144 Potassium 3.6 Chloride 106 Carbon Dioxide 25.8 Anion Gap 12.2 H BUN 32 H Creatinine 1.3 Estimated GFR/1.73 m2 52.47 Glucose 133 H Calcium 8.9 Magnesium 2.0 Total Bilirubin 1.0 AST 231 H ALT 113 H Alkaline Phosphatase 59 Creatine Kinase 8469 H Troponin I 823 H* Total Protein 7.4 Albumin 3.1 L Lipase 18 TSH 1.57 Urine Color Urine Clarity Urine pH Ur Specific [place] Urine Protein Urine Ketones Urine Blood Urine Nitrite Urine Bilirubin Urine Urobilinogen Ur Leukocyte Esterase Urine RBC Urine WBC Ur Epithelial Cells Urine Crystals Urine Bacteria Urine Casts Urine Mucus Urine Other Ur Culture Indicated? Urine Glucose Urine Opiates Screen Urine Methadone Screen Ur Barbiturates Screen Ur Tricyclics Screen Ur Amphetamines Screen U Benzodiazepines Scrn Urine Cocaine Screen Ur THC Screen Ethyl Alcohol < 3.0 COVID-19 Source SARS-CoV-2 (PCR) Influenza Type A (PCR) Influenza Type B (PCR) RSV (PCR) 10/08/21 10/08/21 10/08/21 21:06 21:12 21:12 WBC RBC Hgb Hct MCV MCH MCHC RDW Plt Count MPV Immature Gran % Neutrophils % Lymphocytes % Monocytes % Eosinophils % Basophils % Nucleated RBC % Absolute Neutrophils Absolute Lymphocytes Absolute Monocytes Absolute Eosinophils Absolute Basophils RBC Morphology PT INR APTT VBG pH 7.40 VBG pCO2 40 L VBG pO2 25 VBG HCO3 25 VBG Total CO2 22 L VBG O2 Saturation 47 VBG Base Excess 0 Sodium Potassium Chloride Carbon Dioxide Anion Gap BUN Creatinine Estimated GFR/1.73 m2 Glucose Calcium Magnesium Total Bilirubin AST ALT Alkaline Phosphatase Creatine Kinase Troponin I Total Protein Albumin Lipase TSH Urine Color Yellow Urine Clarity Cloudy Urine pH 6.0 Ur Specific [place] >= 1.030 H Urine Protein >=300 H Urine Ketones 40 H Urine Blood Large H Urine Nitrite Negative Urine Bilirubin Moderate H Urine Urobilinogen 0.2 Ur Leukocyte Esterase Negative Urine RBC Urine WBC 10-20 H Ur Epithelial Cells Negative Urine Crystals Moderate Amorphous Urine Bacteria Negative Urine Casts 20-50 Fine Granular Urine Mucus Moderate Urine Other Few Transitional Ur Culture Indicated? Yes Urine Glucose Negative Urine Opiates Screen Negative Urine Methadone Screen Negative Ur Barbiturates Screen Negative Ur Tricyclics Screen Negative Ur Amphetamines Screen Negative U Benzodiazepines Scrn Negative Urine Cocaine Screen Negative Ur THC Screen Negative Ethyl Alcohol COVID-19 Source SARS-CoV-2 (PCR) Influenza Type A (PCR) Influenza Type B (PCR) RSV (PCR) 10/08/21 21:20 WBC RBC Hgb Hct MCV MCH MCHC RDW Plt Count MPV Immature Gran % Neutrophils % Lymphocytes % Monocytes % Eosinophils % Basophils % Nucleated RBC % Absolute Neutrophils Absolute Lymphocytes Absolute Monocytes Absolute Eosinophils Absolute Basophils RBC Morphology PT INR APTT VBG pH VBG pCO2 VBG pO2 VBG HCO3 VBG Total CO2 VBG O2 Saturation VBG Base Excess Sodium Potassium Chloride Carbon Dioxide Anion Gap BUN Creatinine Estimated GFR/1.73 m2 Glucose Calcium Magnesium Total Bilirubin AST ALT Alkaline Phosphatase Creatine Kinase Troponin I Total Protein Albumin Lipase TSH Urine Color Urine Clarity Urine pH Ur Specific [place] Urine Protein Urine Ketones Urine Blood Urine Nitrite Urine Bilirubin Urine Urobilinogen Ur Leukocyte Esterase Urine RBC Urine WBC Ur Epithelial Cells Urine Crystals Urine Bacteria Urine Casts Urine Mucus Urine Other Ur Culture Indicated? Urine Glucose Urine Opiates Screen Urine Methadone Screen Ur Barbiturates Screen Ur Tricyclics Screen Ur Amphetamines Screen U Benzodiazepines Scrn Urine Cocaine Screen Ur THC Screen Ethyl Alcohol COVID-19 Source Not Applicable SARS-CoV-2 (PCR) Negative Influenza Type A (PCR) Negative Influenza Type B (PCR) Negative RSV (PCR) Negative Last Vital Signs Temp 36.8 C 10/08/21 20:54 Pulse 115 H 10/08/21 22:01 Resp 21 10/08/21 22:50 BP 151/69 H 10/08/21 22:01 Pulse Ox 96 10/08/21 22:50
[2021-10-09 00:32] LABS: Troponin I 904 ng/L (<or=60)
[2021-10-09] MEDS: Melatonin 3 MG TAB 6 MG PO (02:35)
[2021-10-09] MEDS: Lactated Ringers 1,000 ML 100 ML IV ×2 (02:35→15:09)
[2021-10-09 06:16] LABS: HCT 45.1 % (40.0-50.0); HGB 15.8 g/dL (13.5-17.5); MCH 32.7 pg (27.0-33.0); MCV 93 fL (80-95); MPV 10.4 fL (8.0-11.0); Platelet Count 154 10^3/uL (130-400); RBC 4.83 10^6/uL (4.36-5.78); RDW 13.5 % (11.8-14.1); RDW-SD 47.5 fL; WBC 13.04 10^3/uL (4.4-10.8)
[2021-10-09 06:45] LABS: ALT 106 U/L (16-63); AST 191 U/L (15-37); Anion Gap 12.2 mmol/L (3-11); BUN 33 mg/dL (7-18); CO2 21.8 mmol/L (21.0-32.0); Calcium 8.7 mg/dL (8.5-10.1); Chloride 104 mmol/L (98-107); Glucose 113 mg/dL (74-106); Potassium 3.4 mmol/L (3.5-5.1); Sodium 138 mmol/L (136-145); Troponin I 898 ng/L (<or=60)
[2021-10-09 06:52] LABS: Creatine Kinase 6081 U/L (39-308)
--- NOTE | 2021-10-09 08:36 | PDOC.CMIN ---
- If Service Date Differs Date of service: 10/09/21 Time of Service: 08:36 Care Management Initial Assess REASON FOR HOSPITALIZATION:: Rhabdo, fall PAST MEDICAL HISTORY/PAST SURGICAL HISTORY:: All Active Problems . Rhabdomyolysis (Acute). Dehydration (Acute). Acute UTI (Acute). Snoring (Chronic). 01/2018: declines Sleep Medicine eval; 06/2019: continues to decline. 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 Heel pain, chronic (Chronic). Paresthesia of hand (Chronic 01/25/14). 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 Hyperlipidemia (Chronic 10/29/14). risk calc 45.8% with BP 180 10/29/14; declines meds; Lifestyle: eats lots of fish, fruit, veg, blue berries, no sugar. Essential hypertension (Chronic 03/22/14). declines ANY medications consistently. Atopic dermatitis (Chronic 07/13/13). 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 Surgical History . Endoscopic Carpal Tunnel release (07/15/17). Angely- LEFT. History of total left hip arthroplasty. Hx of appendectomy. Hx of lumbar discectomy PREVIOUS FUNCTIONAL STATUS/SOCIAL/FAMILY SUPPORTS:: Resides alone in [place], has a supportive neighbor. Cristóbal is independent at baseline. CURRENT FUNCTIONAL STATUS:: Remains in ICU, closely monitored at this time. ADVANCE DIRECTIVES:: None on file. Has patient been provided with info about the portal/API?: Yes Did the patient sign up for the portal?: No CODE STATUS:: Full Code INSURANCE COVERAGE / FINANCIAL ISSUES:: BC/BS Other. [facility] PPO. [facility] CURRENT HOME/COMMUNITY SERVICES/EQUIPMENT:: None, currently. PRIMARY CARE PHYSICIAN:: Bibi Schwab POTENTIAL DISCHARGE NEEDS:: Follow up appointments. PATIENT/FAMILY EDUCATION NEEDS:: Review discharge instructions, discuss Ask Me Three. ANTICIPATED BARRIERS TO DISCHARGE:: None identified. TRANSPORTATION:: Via private vehicle with neighbor. PLAN:: Cristóbal will return home when ready per MD. He will follow up with his PCP and plan of care as prescribed.
[2021-10-09] MEDS: Acetaminophen 325 MG TAB 650 MG PO ×2 (08:57→18:20)
[2021-10-09] MEDS: Metoprolol CR 25 MG TABCR 12.5 MG PO ×2 (08:57→19:57)
[2021-10-09] MEDS: Potassium Chloride 20 MEQ TABCR PO ×2 (08:57→19:56)
--- NOTE | 2021-10-09 10:25 | PGE_ITS ---
Date of Service Date of service: 10/09/21 Time of Service: 10:25 Assessment and Plan Assessment and plan (1) Rhabdomyolysis: Status: Acute Assessment and plan: CPK is coming down to 6000. BUN and creatinine appear to be stable at 33 and 1.0 and is improved over his admission creatinine 1.3. We will continue IV fluid hydration encourage oral intake monitor his urine output and follow the trend in his CK levels. I will correct his hypokalemia with oral supplementation. We will have physical therapy continue to work with him to improve his gait stability. He is not having any evidence for compartment syndrome. Professional time spent interviewing and examining patient, discussion of goals of care with hospital team (care management, nursing and consulting carter banda) was 45 minutes. (2) Dehydration: Status: Acute Assessment and plan: Continue IV fluid hydration as above (3) Acute UTI: Status: Acute Assessment and plan: Urine was suspicious for an acute UTI. Since his admission last night we found that he actually has bacteremia with gram-positive cocci. In addition to the Rocephin I added vancomycin until we can identify the particular gram-positive organism. (4) Elevated troponin I level: Status: Acute Assessment and plan: We will trend his troponin levels but I suspect this is a component of his rhabdomyolysis. An echocardiogram was ordered for today. He has no symptoms of chest pain or pressure. ECG last night demonstrated sinus tachycardia rate of 123. I will resume his Toprol-XL and trend his troponin levels. Subjective Subjective Interval history since last seen: 86-year-old male with a past medical history of essential hypertension, hyperlipidemia, osteoarthritis who had a fall at home and was down on the floor for about 24 hours before being found. He presented emergency department where he was found to be in acute rhabdomyolysis and to have pyuria. He was also found to have elevated troponin level. Patient is a regular drinker of alcohol but is never had alcoholic withdrawal seizures or DTs. CPK was elevated 8400 and his transaminases were elevated with an ALT of 113, AST 231, troponin level was elevated at 823. EKG showed sinus tachycardia but no acute ST-T wave changes. Patient was started on IV fluids and admitted to the intensive care unit. Patient complains of left hip discomfort and right elbow discomfort. Physical therapy evaluated him today and stated that he was able to support his weight with both arms on the walker although he had tenderness over the right elbow joint. I ordered x-ray of his right elbow which did not show any fracture or dislocation. Pelvic x-ray was performed last night and showed no fractures but it did not evaluate the distal left hip. We got an dedicated left hip x-ray today and this showed no fracture or dislocation. He has had previous left hip arthroplasty. Patient denies any chest pain or pressure or dyspnea and no nausea or vomiting. Exam Narrative Exam Narrative: Elderly white male who has an abrasion over his chin he seems to be alert and oriented and cooperative. Lungs are clear to auscultation Heart regular rate and rhythm Telemetry demonstrates sinus to sinus tachycardia Abdomen soft nontender Left hip with no evidence of ecchymosis no point tenderness over his able to internally externally rotate the left hip without exquisite pain. Examination right elbow reveals no ecchymosis however he has tenderness with internal and external rotation of the forearm. Neuro exam is grossly intact no focal cranial nerve deficits he has normal strength in his hands and his arms as well as in his legs. Objective Last Vital Signs Temp 38.0 C H 10/09/21 09:07 Pulse 102 H 10/09/21 07:03 Resp 21 10/09/21 07:47 BP 134/68 10/09/21 07:47 Pulse Ox 93 10/09/21 06:01 Laboratory Results - last 24 hr 10/08/21 10/08/21 10/08/21 21:06 21:06 21:06 WBC 15.79 H RBC 5.01 Hgb 16.3 Hct 47.7 MCV 95 MCH 32.5 MCHC 34.2 RDW 13.4 Plt Count 165 MPV 10.3 Immature Gran % 0.6 Neutrophils % 85.4 Lymphocytes % 4.1 Monocytes % 9.7 Eosinophils % 0.0 Basophils % 0.2 Nucleated RBC % 0.0 Absolute Neutrophils 13.48 H Absolute Lymphocytes 0.65 L Absolute Monocytes 1.53 H Absolute Eosinophils 0.00 Absolute Basophils 0.03 RBC Morphology Normal PT 11.2 H INR 1.1 APTT 28.6 H VBG pH VBG pCO2 VBG pO2 VBG HCO3 VBG Total CO2 VBG O2 Saturation VBG Base Excess Sodium 144 Potassium 3.6 Chloride 106 Carbon Dioxide 25.8 Anion Gap 12.2 H BUN 32 H Creatinine 1.3 Estimated GFR/1.73 m2 52.47 Glucose 133 H Calcium 8.9 Magnesium 2.0 Total Bilirubin 1.0 AST 231 H ALT 113 H Alkaline Phosphatase 59 Creatine Kinase 8469 H Troponin I 823 H* Total Protein 7.4 Albumin 3.1 L Lipase 18 TSH 1.57 Urine Color Urine Clarity Urine pH Ur Specific [place] Urine Protein Urine Ketones Urine Blood Urine Nitrite Urine Bilirubin Urine Urobilinogen Ur Leukocyte Esterase Urine RBC Urine WBC Ur Epithelial Cells Urine Crystals Urine Bacteria Urine Casts Urine Mucus Urine Other Ur Culture Indicated? Urine Glucose Urine Opiates Screen Urine Methadone Screen Ur Barbiturates Screen Ur Tricyclics Screen Ur Amphetamines Screen U Benzodiazepines Scrn Urine Cocaine Screen Ur THC Screen Ethyl Alcohol < 3.0 COVID-19 Source SARS-CoV-2 (PCR) Influenza Type A (PCR) Influenza Type B (PCR) RSV (PCR) 10/08/21 10/08/21 10/08/21 21:06 21:12 21:12 WBC RBC Hgb Hct MCV MCH MCHC RDW Plt Count MPV Immature Gran % Neutrophils % Lymphocytes % Monocytes % Eosinophils % Basophils % Nucleated RBC % Absolute Neutrophils Absolute Lymphocytes Absolute Monocytes Absolute Eosinophils Absolute Basophils RBC Morphology PT INR APTT VBG pH 7.40 VBG pCO2 40 L VBG pO2 25 VBG HCO3 25 VBG Total CO2 22 L VBG O2 Saturation 47 VBG Base Excess 0 Sodium Potassium Chloride Carbon Dioxide Anion Gap BUN Creatinine Estimated GFR/1.73 m2 Glucose Calcium Magnesium Total Bilirubin AST ALT Alkaline Phosphatase Creatine Kinase Troponin I Total Protein Albumin Lipase TSH Urine Color Yellow Urine Clarity Cloudy Urine pH 6.0 Ur Specific [place] >= 1.030 H Urine Protein >=300 H Urine Ketones 40 H Urine Blood Large H Urine Nitrite Negative Urine Bilirubin Moderate H Urine Urobilinogen 0.2 Ur Leukocyte Esterase Negative Urine RBC Urine WBC 10-20 H Ur Epithelial Cells Negative Urine Crystals Moderate Amorphous Urine Bacteria Negative Urine Casts 20-50 Fine Granular Urine Mucus Moderate Urine Other Few Transitional Ur Culture Indicated? Yes Urine Glucose Negative Urine Opiates Screen Negative Urine Methadone Screen Negative Ur Barbiturates Screen Negative Ur Tricyclics Screen Negative Ur Amphetamines Screen Negative U Benzodiazepines Scrn Negative Urine Cocaine Screen Negative Ur THC Screen Negative Ethyl Alcohol COVID-19 Source SARS-CoV-2 (PCR) Influenza Type A (PCR) Influenza Type B (PCR) RSV (PCR) 10/08/21 10/09/21 10/09/21 21:20 00:05 06:03 WBC RBC Hgb Hct MCV MCH MCHC RDW Plt Count MPV Immature Gran % Neutrophils % Lymphocytes % Monocytes % Eosinophils % Basophils % Nucleated RBC % Absolute Neutrophils Absolute Lymphocytes Absolute Monocytes Absolute Eosinophils Absolute Basophils RBC Morphology PT INR APTT VBG pH VBG pCO2 VBG pO2 VBG HCO3 VBG Total CO2 VBG O2 Saturation VBG Base Excess Sodium 138 Potassium 3.4 L Chloride 104 Carbon Dioxide 21.8 Anion Gap 12.2 H BUN 33 H Creatinine 1.0 Estimated GFR/1.73 m2 >= 60.00 Glucose 113 H Calcium 8.7 Magnesium Total Bilirubin AST 191 H ALT 106 H Alkaline Phosphatase Creatine Kinase 6081 H Troponin I 904 H* Total Protein Albumin Lipase TSH Urine Color Urine Clarity Urine pH Ur Specific [place] Urine Protein Urine Ketones Urine Blood Urine Nitrite Urine Bilirubin Urine Urobilinogen Ur Leukocyte Esterase Urine RBC Urine WBC Ur Epithelial Cells Urine Crystals Urine Bacteria Urine Casts Urine Mucus Urine Other Ur Culture Indicated? Urine Glucose Urine Opiates Screen Urine Methadone Screen Ur Barbiturates Screen Ur Tricyclics Screen Ur Amphetamines Screen U Benzodiazepines Scrn Urine Cocaine Screen Ur THC Screen Ethyl Alcohol COVID-19 Source Not Applicable SARS-CoV-2 (PCR) Negative Influenza Type A (PCR) Negative Influenza Type B (PCR) Negative RSV (PCR) Negative 10/09/21 10/09/21 06:03 06:03 WBC 13.04 H RBC 4.83 Hgb 15.8 Hct 45.1 MCV 93 MCH 32.7 MCHC 35.0 D RDW 13.5 Plt Count 154 MPV 10.4 Immature Gran % Neutrophils % Lymphocytes % Monocytes % Eosinophils % Basophils % Nucleated RBC % Absolute Neutrophils Absolute Lymphocytes Absolute Monocytes Absolute Eosinophils Absolute Basophils RBC Morphology PT INR APTT VBG pH VBG pCO2 VBG pO2 VBG HCO3 VBG Total CO2 VBG O2 Saturation VBG Base Excess Sodium Potassium Chloride Carbon Dioxide Anion Gap BUN Creatinine Estimated GFR/1.73 m2 Glucose Calcium Magnesium Total Bilirubin AST ALT Alkaline Phosphatase Creatine Kinase Troponin I 898 H* Total Protein Albumin Lipase TSH Urine Color Urine Clarity Urine pH Ur Specific [place] Urine Protein Urine Ketones Urine Blood Urine Nitrite Urine Bilirubin Urine Urobilinogen Ur Leukocyte Esterase Urine RBC Urine WBC Ur Epithelial Cells Urine Crystals Urine Bacteria Urine Casts Urine Mucus Urine Other Ur Culture Indicated? Urine Glucose Urine Opiates Screen Urine Methadone Screen Ur Barbiturates Screen Ur Tricyclics Screen Ur Amphetamines Screen U Benzodiazepines Scrn Urine Cocaine Screen Ur THC Screen Ethyl Alcohol COVID-19 Source SARS-CoV-2 (PCR) Influenza Type A (PCR) Influenza Type B (PCR) RSV (PCR) PAWSS Have you Been Recently Intoxicated or Drunk Within the Last 30 days?: No Have you Ever Experienced Previous Episodes of Alcohol Withdrawal?: Yes Have you ever Experienced Withdrawal Seizures?: No Have you ever Experienced Delirium Tremens(DT)s?: No Have you ever undergone Alcohol Rehabilitation Treatment (i.e, inpt ot outpatient treatment programs)?: Unable to Obtain Have you ever Experienced Blackouts?: Unable to Obtain Have you ever Combined Alcohol with other Downers within the last 90 days?: No Have you ever Combined Alcohol with any other Substance of Abuse during the last 90 days?: No Positive Blood Alcohol level on Presentation? [PCS.BAL]: No Evidence of Increased Autonomic Activity (i.e. HR>120, tremor, sweating, agitation, nausea)?: No Result: 1
[2021-10-09] MEDS: Multivitamin TAB 1 TAB PO (11:59)
[2021-10-09] MEDS: Thiamine 100 MG TAB PO (12:00)
[2021-10-09] MEDS: Folic Acid 1 MG TAB PO (12:00)
--- NOTE | 2021-10-09 12:04 | IN_ITS ---
PT Notes Visit Reasons: rhabdo, fall Inpatient Physical Therapy Evaluation Date: 10/09/2021 Referring Doctor: Ryan Moses MD PT Orders: PT CONSULT: Limited ability Precautions: Fall precaution Patient Profile/Admitting Diagnosis: 86-year-old male who fell recently and went unnoticed for approximately 24 hours. He was admitted with rhabdomyolysis, dehydration and a UTI PMHX: All Active Problems? 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 Endoscopic Carpal Tunnel release (07/15/17) Angely- LEFTHistory of total left hip arthroplasty Hx of appendectomy Hx of lumbar discectomy Social History/Home Situation: Lives alone in an one half story home with approximately 5 steps entering the house which has railings. His bedroom and bathroom are on the first floor, and he has a combo shower/ tub with a grab bar. His office is on the second floor, and approximately 12 steps with double railings. 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 Current Functional Limitations: Requires assistance with bed mobility and ambulation Equipment Owned/DME: Walker Subjective: Pleasant and cooperative, with complaints of right elbow discomfort with movement and antalgia on the left but nonpainful Objective: General Observation: Little discouraged regarding his functional status compared to before his fall. Mental Status: Alert and oriented x3 Pain: Complains of right elbow discomfort with movement, but nonpainful with weightbearing activities such as using his walker Vital Signs: His pulse is 100 bpm following ambulation ROM: Right Upper Extremity: He has difficulty actively lifting his right arm overhead, and active assistively is shoulder flexion is approximately 115 degrees bilaterally. His rotation is approximately 60 degrees. He has hypomobility with the MP and IP joints of his fingers making it difficult to make a fist. He also has some mild flexion contractures. Detailed measurements were not taken. His right elbow motion actively is approximately -30-120 degrees with endrange discomfort throughout the elbow region. His forearm supination pronation are hypomobile but nonpainful, and his wrist flexion extension is not much more than 30 degrees. Bilateral hip motion is nonirritable with some mild hypomobility within an amy cular pattern of his right hip. Bilateral knee motion is 0 to 130 degrees, and he has mild hypomobility with the tibiotalar and subtalar joints. Strength: His strength is generally rated 4/5 throughout, although his right infraspinatus is 1/5 Neuro: Reflexes symmetrical, sensations intact light touch Bed Mobility/Transfers: Required moderate assistance of 1 person to assume the supine to sitting position and vice versa, and assist of 2 people to assume the sitting to standing position. Gait: Ambulated approximately 30 feet with FWW and contact guarding with mild antalgia on the left. He was mildly anterior flexed. Balance: Static Sitting: Good Dynamic Sitting: Good Static Standing: Good Dynamic Standing: Fair Special Tests: Mobility Limitations Standardized Measure [facility] AM-PAC 6 clicks Basic Mobility Inpatient Short Form: Raw Score: 11 standardized Score: 3.22 CMS Score: 72.57% Informed Consent/Education: Patient instructed in purpose of PT consult and plan of care. Assessment: Patient is a 86year old male referred to physical therapy services with the diagnosis of rhabdomyolysis, UTI, dehydration. 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 Patient presents with clinical signs and symptoms consistent with diagnosis, as demonstrated by the following impairment level findings: Generalized weakness along with right elbow pain. Impairments are contributing to the following functional limitations: Assistance with all bed mobility activities and need for walker with standby supervision Patient is assessed as a Moderate 03213 complexity based on the following: History: See comorbidities and social history Examination: See above for functional limitations and impairments Presentation: Evolving Decision Making: Moderate complexity based on his clinical findings Goals: Goals X1 week 1. Supine-Sit independent 2. Sit-Supine independent 3. Sit-Stand independent 4. Stand-Sit independent 5. Bed-Chair independent 6. Chair-Bed independent 7. Gait independent with a FWW for greater than 100 feet 8. Stairs ascension/descend 5 steps Plan of Care/Treatment Plan: 1-2x/day, 7 days/week x 1 week. Plan of care has been reviewed with the NEEDLE FELT MAKING MACHINE OPERATOR providing the service under Physical Therapy direction. Initiate Physical Therapy intervention for strengthening, bed mobility, transfers, gait, stairs, balance training, use of assistive device. DISCHARGE RECOMMENDATIONS: SNF for continued rehabilitation [] TREATMENT CODE/TIME: 9716 2/45 minutes
[2021-10-09] MEDS: cefTRIAXone 2 GM/50 ML BAG IVPB (15:08)
[2021-10-09] MEDS: Normal Saline Flush 10 ML SYR (15:30)
--- NOTE | 2021-10-09 15:42 | PHA.REVIEW ---
Pharmacy Admission Review - Admission Clinical Review (Last Reviewed 10/09/21 @ 00:27 by Ryan Moses MD) Rhabdomyolysis (Acute) Dehydration (Acute) Acute UTI (Acute) hydrochlorothiazide Adverse Reaction (Intermediate, Unverified 10/08/21 21:05) urinary frequency, leg cramps CATS Allergy (Severe, Uncoded 10/08/21 21:05) BREATHING, SNEEZING, BURNING EYES Resuscitation Status Full Code Height 6 ft Weight 79.1 kg - Renal Dosing Renal Dosing: BUN 33 mg/dL (7-18) H 10/09/21 06:03 Creatinine 1.0 mg/dL (0.70-1.30) 10/09/21 06:03 Medications needing adjustments: Reviewed (Crcl ~59 mL/min current meds okay) - Anticoagulation Anticoagulation: Hgb 15.8 g/dL (13.5-17.5) 10/09/21 06:03 Hct 45.1 % (40.0-50.0) 10/09/21 06:03 Plt Count 154 10^3/uL (130-400) 10/09/21 06:03 INR 1.1 (0.9-1.1) 10/08/21 21:06 Creatinine 1.0 mg/dL (0.70-1.30) 10/09/21 06:03 DVT Prophylaxis: Intervened Therapeutic Anticoagulation: N/A (none currently ordered, will ask provider about possible need) - Opiate Usage Evaluate Pain Scale/Pains Meds: N/A - Relevant Labs Sodium 138 mmol/L (136-145) 10/09/21 06:03 Potassium 3.4 mmol/L (3.5-5.1) L 10/09/21 06:03 Chloride 104 mmol/L (98-107) 10/09/21 06:03 Magnesium 2.0 mg/dL (1.8-2.4) 10/08/21 21:06 Electrolytes, C-Reactive P, ESR: Reviewed (PO K+ replacement ordered) - DM Control DM Control: Glucose 113 mg/dL (74-106) H 10/09/21 06:03 Insulin Dosing: N/A - Heart Failure/WI Heart Failure/WI: Troponin I 898 ng/L (<or=60) H* 10/09/21 06:03 EF%, AMAURY's, B-Blockers, Diuretics: Reviewed - BP Control BP Control: Blood Pressure 102/54 Blood Pressure 134/68 Blood Pressure 134/68 Blood Pressure 130/72 If elevated: Reviewed (BP has been up and down some so far this admission.) - Qtc Review If Elevated: N/A - IV to PO Switch IV Medications: Reviewed - Home Meds Home Med List reviewed: Intervened (med rec not completed yet, most are OTC meds. Both of the pharmacies listed were called and neither of them had filled any Rxs for the patient. The provider was made aware.) - Current meds Current Medication Order Review: Reviewed - Comments Comments/Follow Ups: [facility] BP, SCr, K+, labs and for med changes (possible renal dose adjustments). Antibiotic Activity - Pharmacy Antibiotic Review Pharmacy Antibiotic Activity: C/S review (Urine culture growing gram positive laine, blood cultures growing gram positive cocci. Ceftriaxone and vanco ordered.)
--- NOTE | 2021-10-09 15:48 | PT.INNT ---
Date of service: 10/09/21 Time of Service: 15:48 PT Notes Visit Reasons: sweta, fall10/09/2021 Patient refused afternoon PT session stating, I need to take a nap, my internal clock says it's time for me to take a nap, and if I work with you, it will be all off. Will attempt to resume PT services tomorrow morning.
[2021-10-09] MEDS: VANCOMYCIN/WATER (PEG) 1 GM/200 ML BAG IV (16:01)
[2021-10-09] MEDS: Lidocaine 2% Jelly 6 ML SYR (20:17)
[2021-10-10] VITALS (56 sets, daily range): BP systolic 97–153; BP diastolic 53–100; PULSE 60–167; RESP 15–28; TEMP 37–38; O2SAT 95–97
[2021-10-10] MEDS: VANCOMYCIN/WATER (PEG) 1 GM/200 ML BAG IV ×2 (01:00→14:45)
[2021-10-10] MEDS: Lactated Ringers 1,000 ML 100 ML IV (04:00)
[2021-10-10 06:09] LABS: Abs Immature Grans 0.06 10^3/uL (0.0-0.06); Absolute Basophil Count 0.03 10^3/uL (0.0-0.2); Absolute Lymphocyte Count 0.66 10^3/uL (1.2-3.4); Absolute Monocyte Count 1.08 10^3/uL (0.1-0.8); Basophils % 0.3; HCT 42.3 % (40.0-50.0); HGB 14.5 g/dL (13.5-17.5); Immature Grans % 0.5; Lymphocytes % 5.9; MCHC 34.3 % (32.0-36.0); MCV 93 fL (80-95); MPV 10.8 fL (8.0-11.0); Monocytes % 9.7; Neutrophils % 83.6; Platelet Count 140 10^3/uL (130-400); RBC 4.53 10^6/uL (4.36-5.78); RDW 13.8 % (11.8-14.1); RDW-SD 47.9 fL; WBC 11.13 10^3/uL (4.4-10.8)
[2021-10-10 06:24] LABS: ALT 150 U/L (16-63); AST 201 U/L (15-37); Albumin 2.3 g/dL (3.4-5.0); Alkaline Phosphatase 58 U/L (46-116); BUN 29 mg/dL (7-18); Bilirubin, Total 0.6 mg/dL (0.2-1.0); CREATININE 0.9 mg/dL (0.70-1.30); Calcium 8.7 mg/dL (8.5-10.1); Chloride 102 mmol/L (98-107); Glucose 112 mg/dL (74-106); Potassium 3.8 mmol/L (3.5-5.1); Sodium 135 mmol/L (136-145); Total Protein 6.6 g/dL (6.4-8.2)
[2021-10-10 06:35] LABS: PHOSPHORUS 2.2 mg/dL (2.6-4.7)
[2021-10-10 06:38] LABS: Creatine Kinase 2910 U/L (39-308)
[2021-10-10 07:45] LABS: Lab Add On Test DONE
--- NOTE | 2021-10-10 07:45 | RT.EKG_ITS ---
APPROVED REPORT Exam: Resting ECG Reason for Exam: rhythm change Patient Location: I HR:157 bpm ECG Measurements Heart Rate 157 AXIS GA [id number] P [id number] QRSd 77 QRS 21 QT 279 T -5 QTc 451 Conclusion Atrial fibrillation with rapid V-rate...A-rate 336 Borderline T abnormalities, inferior leads...T flat/neg, II III aVF
--- NOTE | 2021-10-10 07:48 | PDOC.CMPRO ---
- If Service Date Differs Date of service: 10/10/21 Time of Service: 07:49 Care Management Progress Note S/O: Cristóbal remains in the ICU, on Med/Surg status. He was sitting up in his chair when CM met with him. His son and [id number] also came to visit, and Cristóbal reports they are staying at his home in [place] until Saturday. Cristóbal feels confident he will be able to return home from [facility] with their support and home health services, however PT is highly recommending SNF post discharge. Cristóbal remains inpatient, and per MD, will likely require at least a few more days inpatient. SNF conversation will continue to be addressed dependent on treatment recommendations and progress mobility. CM continues to follow. A: 86 year old male admitted to [facility] 10/09/21 for Rhabdo, Fall P: Anticipate Cristóbal will discharge to short term SNF prior to returning home unless he continues to refuse. If returning home, new orders for home health will be initiated; Cristóbal is agreeable. Referrals faxed to the [facility] and Rehab for review. CM continues to follow.
[2021-10-10] MEDS: Metoprolol 5 MG/5 ML VIAL IVP (07:57)
[2021-10-10] MEDS: Potassium Chloride 10 MEQ CAPCR 20 MEQ PO (08:06)
[2021-10-10] MEDS: Acetaminophen 325 MG TAB 650 MG PO (08:06)
--- NOTE | 2021-10-10 08:06 | W.PM.PROGNOT ---
Date of Service Date of service: 10/10/21 Time of Service: 08:06 Assessment and Plan Assessment and plan (1) Atrial fibrillation with rapid ventricular response: Status: Acute Assessment and plan: His Toprol dose has been increased to 50 mg daily. I ordered IV Lopressor to acutely bring down his heart rate which brought it down from 160s down to the 110s. Probably has underlying CANDACE which predisposes him to atrial fibrillation. However he is declined to work-up. Echocardiogram was performed yesterday. He has normal left ventricular size with mild LV systolic dysfunction with mild global hypokinesis with an LVEF of 50%. RV size and function was grossly normal. He did not have any pulmonary hypertension. Left atrial rate tremor not well visualized. No vegetations were seen on his valves. He has mild MAC with trace to mild MR but no MS. Tricuspid valve is normal in structure with trace to mild tricuspid regurgitation. Aortic valve was sclerotic trileaflet with no aortic valve stenosis or regurgitation. Professional time spent interviewing and examining patient, discussion of goals of care with hospital team (care management, nursing and consulting professionals) was 45 minutes. (2) Elevated troponin I level: Status: Acute Assessment and plan: Probably stress-induced ischemia. Echo with no large regional wall motion abnormalities. (3) Rhabdomyolysis: Status: Acute Assessment and plan: Rhabdomyolysis secondary to his prolonged period of being on the floor of his home. Renal function is preserved. BUN 29 creatinine 0.9. Urine output over the last 12 hours was 1010 mL. However the urine output is documented for the entire day yesterday was incomplete as the patient was incontinent and we do not have accurate outputs until Ibrahim catheter was placed last night (4) Staphylococcus aureus bacteremia: Status: Acute Assessment and plan: 4 out of 4 by also positive for staph aureus. Patient is currently on Rocephin 2 g daily along with vancomycin 1 g IV every 12 hours (5) Acute UTI: Status: Acute Assessment and plan: Antibiotics as above (6) Dehydration: Status: Acute Assessment and plan: Repleting with IV fluids including LR at 100 mL an hour. We will decrease the rate of IV fluid administration to prevent excessive volume replacement. Renal function appears to have stabilized and CK levels are coming down. (7) Essential hypertension: Status: Chronic Assessment and plan: Patient alleges that he controls his hypertension with beet powder and other herbal supplements. Blood pressures been stable on Toprol-XL. (8) DVT prophylaxis: Status: Acute Assessment and plan: Currently on enoxaparin 40 mg SC daily Subjective Subjective Interval history since last seen: Patient went into afib w/ RVR rate in 160's not symptomatic; stable BP. He denies any chest pain/pressure. His only complaint is the noise in the ICU and how it interfered w/ his sleep. He has been on Toprol XL 25 mg at home. Initially this dose was held on admission for unclear reasons. I resumed it at a lower dose yesterday of 12.5 mg but then gave him additional dose last night when he continued to have sinus tachycardia and elevated BP. He denies a history of atrial fibrillation and has not had symptoms of palpitations in the past. He does endorse that he has been told that he may have sleep apnea and it has been suggested to him that he have up PSG and consider use of CPAP but he is declining work-up for the same. With respect to his right elbow contusion the pain is better. I told him that his x-ray was negative for fracture Exam Narrative Exam Narrative: Elderly white male lying in bed in no acute distress alert and oriented able to talk in complete sentences without dyspnea. HEENT is remarkable for an abrasion over his chin Lungs are clear to auscultation Heart is irregular regular and tachycardic without appreciable murmur rub Abdomen soft nontender nondistended normal bowel sounds Extremities no peripheral edema or cyanosis. Right elbow is less tender to palpation he has better range of motion Objective Last Vital Signs Temp 38 C H 10/10/21 00:00 Pulse 106 H 10/10/21 06:17 Resp 20 10/10/21 06:17 BP 147/75 H 10/10/21 06:17 Pulse Ox 95 10/10/21 06:17 Laboratory Results - last 24 hr 10/10/21 10/10/21 10/10/21 05:32 05:32 05:32 WBC 11.13 H RBC 4.53 Hgb 14.5 Hct 42.3 MCV 93 MCH 32.0 MCHC 34.3 RDW 13.8 Plt Count 140 MPV 10.8 Immature Gran % 0.5 Neutrophils % 83.6 Lymphocytes % 5.9 Monocytes % 9.7 Eosinophils % 0.0 Basophils % 0.3 Nucleated RBC % 0.0 Absolute Neutrophils 9.30 H Absolute Lymphocytes 0.66 L Absolute Monocytes 1.08 H Absolute Eosinophils 0.00 Absolute Basophils 0.03 Sodium 135 L Potassium 3.8 Chloride 102 Carbon Dioxide 22.0 Anion Gap 11.0 BUN 29 H Creatinine 0.9 Estimated GFR/1.73 m2 >= 60.00 Glucose 112 H Calcium 8.7 Phosphorus 2.2 L Magnesium 2.0 Total Bilirubin 0.6 AST 201 H ALT 150 H Alkaline Phosphatase 58 Creatine Kinase 2910 H Total Protein 6.6 Albumin 2.3 L Add-On Test Request 10/10/21 05:32 WBC RBC Hgb Hct MCV MCH MCHC RDW Plt Count MPV Immature Gran % Neutrophils % Lymphocytes % Monocytes % Eosinophils % Basophils % Nucleated RBC % Absolute Neutrophils Absolute Lymphocytes Absolute Monocytes Absolute Eosinophils Absolute Basophils Sodium Potassium Chloride Carbon Dioxide Anion Gap BUN Creatinine Estimated GFR/1.73 m2 Glucose Calcium Phosphorus Magnesium Total Bilirubin AST ALT Alkaline Phosphatase Creatine Kinase Total Protein Albumin Add-On Test Request DONE PAWSS Have you Been Recently Intoxicated or Drunk Within the Last 30 days?: No Have you Ever Experienced Previous Episodes of Alcohol Withdrawal?: Yes Have you ever Experienced Withdrawal Seizures?: No Have you ever Experienced Delirium Tremens(DT)s?: No Have you ever undergone Alcohol Rehabilitation Treatment (i.e, inpt ot outpatient treatment programs)?: Unable to Obtain Have you ever Experienced Blackouts?: Unable to Obtain Have you ever Combined Alcohol with other Downers within the last 90 days?: No Have you ever Combined Alcohol with any other Substance of Abuse during the last 90 days?: No Positive Blood Alcohol level on Presentation? [PCS.BAL]: No Evidence of Increased Autonomic Activity (i.e. HR>120, tremor, sweating, agitation, nausea)?: No Result: 1
[2021-10-10] MEDS: Metoprolol CR 25 MG TABCR PO ×2 (08:07→08:20)
[2021-10-10] MEDS: Multivitamin TAB 1 TAB PO (08:07)
[2021-10-10] MEDS: Thiamine 100 MG TAB PO (08:08)
[2021-10-10] MEDS: Folic Acid 1 MG TAB PO (08:08)
[2021-10-10] MEDS: Enoxaparin 40 MG/0.4 ML SYR SC (08:08)
[2021-10-10] MEDS: Normal Saline Flush 10 ML SYR ×2 (08:09→09:14)
[2021-10-10 08:43] LABS: Troponin I 376 ng/L (<or=60)
[2021-10-10] MEDS: dilTIAZem 25 MG/5 ML VIAL 10 MG IVP ×2 (09:14→09:42)
[2021-10-10] MEDS: dilTIAZem 125 MG in Normal Saline 100 ML IV (10:36)
[2021-10-10 11:35] LABS: Lab Add On Test DONE
[2021-10-10 12:01] LABS: TSH 1.16 uIU/mL (0.36-3.74)
[2021-10-10 12:26] LABS: Troponin I 359 ng/L (<or=60)
[2021-10-10] MEDS: cefTRIAXone 2 GM/50 ML BAG IVPB (12:58)
--- NOTE | 2021-10-10 14:00 | PT.INTREAT ---
Date of service: 10/10/21 Time of Service: 09:03 PT Notes Visit Reasons: Rhabdo,Fall Inpatient Physical Therapy Treatment Note [facility] Date: 10/10/2021 PRECAUTIONS: Fall, Activity as tolerated SUBJECTIVE: Cristóbal is agreeable to participating in PT. He reports that he feels very weak compared to his baseline level of function. He reports decreased pain in R elbow compared to yesterday. OBJECTIVE: PAIN: Patient c/o pain in R elbow to touch and with AROM BED MOBILITY/TRANSFERS Sit-supine: SBA with HOB flat, patient requires extra time to complete task Sit-stand: Mod A Stand-sit: Min A GAIT Assistive Device: FWW Weight bearing: Full Assist: CGA Distance: 75' x2 Deviation: Fatigue THEREX: Patient was instructed in a light LE strengthening program, completed in a seated position, to include: ankle pumps, heel raises, LAQ, hip flexion, and hip abduction. STAIRS: Up/down 3x4 and 2x6 using B rails and a step-to pattern with CGA ASSESSMENT: Patient tolerated session well, although with complaint of increased fatigue. He reports feelings of increased weakness compared to his baseline. He requires Min-Mod assist for transfers at this time. PLAN: Continue with global strengthening and general conditioning for improved mobility and activity tolerance. TREATMENT CODE/TIME: Session 1: Hold x2, per nursing due to new onset Afib and tachycardia Session 2: 39 minutes; [id number] x2, 51620 (13:13)
[2021-10-10 19:00] LABS: Creatinine,Urine 166.98 mg/dL
[2021-10-10] MEDS: dilTIAZem 125 MG in Normal Saline 100 ML 15 MG IV (21:40)
[2021-10-11] VITALS (75 sets, daily range): BP systolic 111–173; BP diastolic 54–96; PULSE 66–140; RESP 14–36; TEMP 36.2–38; O2SAT 90–97
--- NOTE | 2021-10-11 | DI.RAD_ITS ---
Exam(s) XR HAND RT COMPLETE XR WRIST RT COMPLETE EXAM: XR HAND RT COMPLETE and XR wrist RT complete CLINICAL HISTORY: s/p fall; right hand/wrist swelling and pain. TECHNIQUE: 2D digital imaging was performed of the right hand. Six images were obtained. AP, latera l and oblique views were obtained. COMPARISON: None. FINDINGS: BONES: No acute fracture is present. No bony destructive lesion is seen. JOINTS: No dislocation present. There are mild degenerative changes seen in the wrist and hand. Ignacio drocalcinosis is present. SOFT TISSUE: Normal. IMPRESSION: No acute fracture or dislocation in the hand or wrist. DATA REPOSITORY: RADIATION DOSE DELIVERED:
[2021-10-11] MEDS: VANCOMYCIN/WATER (PEG) 1 GM/200 ML BAG IV (01:25)
[2021-10-11] MEDS: dilTIAZem 125 MG in Normal Saline 100 ML 15 MG IV (05:54)
[2021-10-11 06:19] LABS: Abs Immature Grans 0.07 10^3/uL (0.0-0.06); Absolute Basophil Count 0.03 10^3/uL (0.0-0.2); Absolute Lymphocyte Count 1.15 10^3/uL (1.2-3.4); Basophils % 0.2; Eosinophils % 0.2; HCT 39.6 % (40.0-50.0); HGB 13.3 g/dL (13.5-17.5); Immature Grans % 0.6; Lymphocytes % 9.2; MCHC 33.6 % (32.0-36.0); MCV 95 fL (80-95); MPV 11.4 fL (8.0-11.0); Monocytes % 11.3; Neutrophils % 78.5; Platelet Count 152 10^3/uL (130-400); RBC 4.15 10^6/uL (4.36-5.78); RDW 13.9 % (11.8-14.1); RDW-SD 49.4 fL; WBC 12.53 10^3/uL (4.4-10.8)
[2021-10-11 06:21] LABS: Absolute Eosinophil Count 0.03 10^3/uL (0.0-0.7); Absolute Monocyte Count 1.42 10^3/uL (0.1-0.8); Absolute Neutrophil Count 9.84 10^3/uL (1.2-6.7)
[2021-10-11 06:45] LABS: ALT 217 U/L (16-63); AST 198 U/L (15-37); Albumin 2.2 g/dL (3.4-5.0); Alkaline Phosphatase 76 U/L (46-116); Anion Gap 10.8 mmol/L (3-11); BUN 38 mg/dL (7-18); Bilirubin, Total 0.6 mg/dL (0.2-1.0); CO2 22.2 mmol/L (21.0-32.0); CREATININE 1.1 mg/dL (0.70-1.30); Calcium 8.7 mg/dL (8.5-10.1); Chloride 99 mmol/L (98-107); Glucose 112 mg/dL (74-106); Potassium 3.7 mmol/L (3.5-5.1); Sodium 132 mmol/L (136-145); Total Protein 6.4 g/dL (6.4-8.2)
[2021-10-11 06:48] LABS: PHOSPHORUS 2.7 mg/dL (2.6-4.7)
[2021-10-11 06:49] LABS: Creatine Kinase 1676 U/L (39-308)
[2021-10-11 07:09] LABS: C-Reactive Protein > 25.00 mg/dL (0.0-0.3)
--- NOTE | 2021-10-11 08:12 | PDOC.CMPRO ---
- If Service Date Differs Date of service: 10/11/21 Time of Service: 08:12 Care Management Progress Note S/O: Cristóbal remains in the ICU, on Med/Surg status. He is alert, oriented and easy to engage in conversation. He was sitting in his chair when CM met with him. He requires 1-2 person assist when OOB. Cristóbal acknowledges that he will require assistance with ambulation and transfers following discharge. PT recommends discharge to SNF for STR prior to returning home where he lives alone. SNF referral's are pending at [facility] and the [facility]. Cristóbal is considering SNF, but hasn't fully committed yet. 1100 Per morning meeting, Cristóbal may require IV ABX X 4 weeks. Anticipate, Cristóbal may transition to [facility] for IV ABX and PT, if patient is agreeable. CM continues to follow. A: 86 year old male admitted to [facility] 10/09/21 for Rhabdo, Fall P: Anticipate Cristóbal will discharge to short term SNF prior to returning home. Referrals faxed to the [facility] and [facility] for review. CM continues to follow.
--- NOTE | 2021-10-11 08:27 | PGE_ITS ---
Date of Service Date of service: 10/11/21 Time of Service: 08:27 Assessment and Plan Assessment and plan (1) Atrial fibrillation with rapid ventricular response: Status: Acute Assessment and plan: Continue diltiazem drip, add oral diltiazem, change Toprol-XL to Lopressor. Start amount on diltiazem 30 mg TID Lopressor 25 mg qid. Goal is to try to wean down and off the diltiazem drip. Patient is currently only anticoagulated on Lovenox 40 mg subcu daily for DVT prophylaxis. I discussed with him risk and benefit of going on an oral anticoagulant. Given his LV dysfunction on his echocardiogram and history hypertension and his age he has a 4% annual risk for CVA if he is not anticoagulated. This can be reduced down to 1.7% risk of stroke with use of D.O.A.C. Annual risk of a major bleed on D.O.A.C. is about 1.5%. We will give him a handout about use of D.O.A.C.'s and precautions that he needs to take to avoid head injuries or major bleeding events. Critical care time spent interviewing and examining the patient, reviewing studies, discussing case with patient's nurse and consulting physicians was 45 minutes (2) Elevated troponin I level: Status: Acute Assessment and plan: Probably stress-induced ischemia. Echo with no large regional wall motion abnormalities. (3) Rhabdomyolysis: Status: Acute Assessment and plan: CK is down to 1676 from a peak of 8500. IV fluids were discontinued yesterday. He seems to be eating and drinking well and the CK should continue to decline. Renal function has been preserved. (4) Staphylococcus aureus bacteremia: Status: Acute Assessment and plan: 4 out of 4 by also positive for staph aureus. Patient is currently on Rocephin 2 g daily along with vancomycin 1 g IV every 12 hours. Sensitivities are pending at this time. Patient has a history of left hip arthroplasty and for this reason he will require at least 4 weeks of parenteral antibiotics. Repeat blood cultures were sent today. If these come back negative then we will request for PICC line to be placed for long-term antibiotic treatment. (5) Acute UTI: Status: Acute Assessment and plan: Antibiotics as above. Patient does have urinary retention and requires a Ibrahim catheter. I will start him on Flomax and after has been on this for couple days we will give him a trial of spontaneous voiding. (6) Essential hypertension: Status: Chronic Assessment and plan: Blood pressure stable. At home he was just treated this with homeopathic remedies including beet powder and grapeseed (7) DVT prophylaxis: Status: Acute Assessment and plan: Discontinue enoxaparin in favor of apixaban for anticoagulation for A. fib Subjective Subjective Interval history since last seen: Cristóbal feels better overall. He still remains in atrial fibrillation however and is still on a Cardizem drip at 15 mg/h. I have added oral diltiazem and switch his Toprol-XL to Lopressor so we can titrate the dose. The goal is to get him off diltiazem drip today. He is complaining of swelling and discomfort in his right hand and wrist. Previous x-ray of his right elbow showed no fracture in the elbow discomfort is actually better today. He has trouble opening closing his right fist. There is no numbness or tingling. Exam Narrative Exam Narrative: Cristóbal is alert and oriented. HEENT is remarkable for an abrasion over his chin from his fall. Neck is supple nontender no JVD Lungs are clear Heart is irregularly irregular slightly tachycardic. Telemetry shows he is in atrial fibrillation heart rate in the low 100s. Abdomen soft nontender Extremities right hand and wrist are edematous. Examined the IV site over right antecubital site there is no induration. IV is flowing well. Seems that most o f his edema is from the distal forearm and over the wrist and hand. Sensations intact to light touch or his fingers pulses are intact. Objective Last Vital Signs Temp 36.2 C L 10/11/21 04:00 Pulse 102 H 10/11/21 00:01 Resp 20 10/11/21 00:01 BP 134/73 10/11/21 00:01 Pulse Ox 96 10/10/21 08:14 Laboratory Results - last 24 hr 10/10/21 10/10/21 10/10/21 05:32 08:30 08:30 WBC RBC Hgb Hct MCV MCH MCHC RDW Plt Count MPV Immature Gran % Neutrophils % Lymphocytes % Monocytes % Eosinophils % Basophils % Nucleated RBC % Absolute Neutrophils Absolute Lymphocytes Absolute Monocytes Absolute Eosinophils Absolute Basophils Sodium 135 L Potassium 3.8 Chloride 102 Carbon Dioxide 22.0 Anion Gap 11.0 BUN 29 H Creatinine 0.9 Estimated GFR/1.73 m2 >= 60.00 Glucose 112 H Calcium 8.7 Phosphorus Total Bilirubin 0.6 AST 201 H ALT 150 H Alkaline Phosphatase 58 Creatine Kinase Troponin I 376 H* C-Reactive Protein Total Protein 6.6 Albumin 2.3 L TSH 1.16 Ur Random Creatinine Add-On Test Request DONE 10/10/21 10/10/21 10/11/21 09:15 11:40 05:05 WBC RBC Hgb Hct MCV MCH MCHC RDW Plt Count MPV Immature Gran % Neutrophils % Lymphocytes % Monocytes % Eosinophils % Basophils % Nucleated RBC % Absolute Neutrophils Absolute Lymphocytes Absolute Monocytes Absolute Eosinophils Absolute Basophils Sodium Potassium Chloride Carbon Dioxide Anion Gap BUN Creatinine Estimated GFR/1.73 m2 Glucose Calcium Phosphorus 2.7 Total Bilirubin AST ALT Alkaline Phosphatase Creatine Kinase 1676 H Troponin I 359 H* C-Reactive Protein > 25.00 H Total Protein Albumin TSH Ur Random Creatinine 166.98 Add-On Test Request 10/11/21 10/11/21 05:05 05:05 WBC 12.53 H RBC 4.15 L Hgb 13.3 L Hct 39.6 L MCV 95 MCH 32.0 MCHC 33.6 D RDW 13.9 Plt Count 152 MPV 11.4 H Immature Gran % 0.6 Neutrophils % 78.5 Lymphocytes % 9.2 Monocytes % 11.3 Eosinophils % 0.2 Basophils % 0.2 Nucleated RBC % 0.0 Absolute Neutrophils 9.84 H Absolute Lymphocytes 1.15 L Absolute Monocytes 1.42 H Absolute Eosinophils 0.03 Absolute Basophils 0.03 Sodium 132 L Potassium 3.7 Chloride 99 Carbon Dioxide 22.2 Anion Gap 10.8 BUN 38 H Creatinine 1.1 Estimated GFR/1.73 m2 >= 60.00 Glucose 112 H Calcium 8.7 Phosphorus Total Bilirubin 0.6 AST 198 H ALT 217 H Alkaline Phosphatase 76 Creatine Kinase Troponin I C-Reactive Protein Total Protein 6.4 Albumin 2.2 L TSH Ur Random Creatinine Add-On Test Request PAWSS Have you Been Recently Intoxicated or Drunk Within the Last 30 days?: No Have you Ever Experienced Previous Episodes of Alcohol Withdrawal?: Yes Have you ever Experienced Withdrawal Seizures?: No Have you ever Experienced Delirium Tremens(DT)s?: No Have you ever undergone Alcohol Rehabilitation Treatment (i.e, inpt ot outpatient treatment programs)?: Unable to Obtain Have you ever Experienced Blackouts?: Unable to Obtain Have you ever Combined Alcohol with other Downers within the last 90 days?: No Have you ever Combined Alcohol with any other Substance of Abuse during the last 90 days?: No Positive Blood Alcohol level on Presentation? [PCS.BAL]: No Evidence of Increased Autonomic Activity (i.e. HR>120, tremor, sweating, agitation, nausea)?: No Result: 1
--- NOTE | 2021-10-11 08:58 | NUR.NOTE ---
10/11/21: Removed white metal ring with Jose G thomas from right hand due to swelling. Ring was removed with out difficulty. Placed ring with watch in small bag wiht patient labe and placed that bag in the patient's own personal bag at the bedside. XRAy taken of right hand & wrist after ring removed.Nursing Note:
--- NOTE | 2021-10-11 08:59 | PT.INTREAT ---
Date of service: 10/11/21 Time of Service: 07:58 PT Notes Visit Reasons: Rhabdo,Fall Inpatient Physical Therapy Treatment Note [facility] Date: 10/11/2021 PRECAUTIONS: Fall, Activity as tolerated SUBJECTIVE: Cristóbal is agreeable to participating in PT. He states that he is feeling lousy because he is in the hospital. OBJECTIVE: PAIN: Patient c/o pain in R hip with gait training BED MOBILITY/TRANSFERS Supine-sit: Mod A Sit-supine: Min A with HOB flat Sit-stand: Min A from elevated bed surface in a.m.; Mod A from low chair surface in p.m. Stand-sit: CGA GAIT Assistive Device: FWW Weight bearing: Full Assist: SBA Distance: 300' in a.m.; 80' in p.m. Deviation: Fatigue, standing rests t/o, c/o R hip pain ASSESSMENT: Patient tolerated session with complaint of increased fatigue and R hip pain with gait training. He reports feelings of increased weakness compared to his baseline. He requires CGA-Mod A for transfers and bed mobility at this time. Recommend discharge to SNF-level facility for continued global strengthening prior to returning to home where he lives alone. PLAN: Continue with global strengthening and general conditioning for improved mobility and activity tolerance. TREATMENT CODE/TIME: Session 1: 24 minutes; 41519 x2 (07:58) Session 2: 16 minutes; [id number] (12:54)
[2021-10-11 09:29] LABS: Phosphorus Urine 130.9 mg/dL (See Note)
[2021-10-11] MEDS: dilTIAZem 30 MG TAB PO ×3 (09:38→20:40)
[2021-10-11] MEDS: Apixaban 5 MG TAB PO ×2 (09:38→20:40)
[2021-10-11] MEDS: Potassium Chloride 10 MEQ CAPCR 20 MEQ PO (09:38)
[2021-10-11] MEDS: Metoprolol 25 MG TAB PO ×4 (09:38→20:40)
[2021-10-11] MEDS: Folic Acid 1 MG TAB PO (09:38)
[2021-10-11] MEDS: Thiamine 100 MG TAB PO (09:39)
[2021-10-11] MEDS: Multivitamin TAB 1 TAB PO (09:39)
[2021-10-11 10:27] LABS: Parathyroid Hormone,Intact 45 pg/mL (19-88)
[2021-10-11] MEDS: Normal Saline Flush 10 ML SYR (12:27)
[2021-10-11] MEDS: cefTRIAXone 2 GM/50 ML BAG IVPB (12:27)
[2021-10-11] MEDS: ceFAZolin 2 GM/50 ML BAG IVPB (15:17)
--- NOTE | 2021-10-11 16:05 | CHAPLAIN ---
Cristóbal was up in the chair when I visited. A visitor, a former co-worker was just leaving. Cristóbal said he was visited by the [employer] yesterday, who was also a Jose G like Cristóbal is. Cristóbal shared some person history, telling me about living in [place] originally, then [place], [place], back to [place] and then to the [facility]. 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 His son and daughter in law and grandson visited recently. He hadn't seen his grandson in over five years. Cristóbal seems to be comfortable being here for now.
[2021-10-11] MEDS: dilTIAZem 125 MG in Normal Saline 100 ML 10 MG IV (17:07)
[2021-10-11] MEDS: Acetaminophen 325 MG TAB 650 MG PO (22:25)
[2021-10-12] VITALS (63 sets, daily range): BP systolic 117–167; BP diastolic 55–120; PULSE 64–157; RESP 12–33; TEMP 36.1–37.8; O2SAT 90–98
--- NOTE | 2021-10-12 | DI.US_ITS ---
Exam(s) US SOFT TISSUE EXTREMITY EXAM: US SOFT TISSUE EXTREMITY CLINICAL HISTORY: R hand fluid collection, bacteremia. TECHNIQUE: Ultrasound was performed using standard protocol. COMPARISON: CR XR HAND RT COMPLETE from 10/11/2021 FINDINGS: Sonographic assessment utilizing grayscale and color Doppler imaging was performed and targeted to th e area of clinical concern. Fluid collection measuring 1 x 0.4 x 0.8 cm at the posterior right wrist. First fluid collection pos terior hand the level of the metacarpals measuring 3 x 0.5 x 2.8 cm which communicates with a second fluid collection in the soft tissues posterior to the level between the 2nd and 3rd metacarpals. IMPRESSION: Fluid collections at the dorsum of the hand. DATA REPOSITORY:
--- NOTE | 2021-10-12 | DI.US_ITS ---
Exam(s) US RENAL EXAM: US RENAL CLINICAL HISTORY: MSSA sepsis, looking for a source. TECHNIQUE: Hernandez scale, color and spectral Doppler were used. COMPARISON: No exams were available for comparison FINDINGS: Renal size in cm: Right: 11.2 left: 12 Echogenicity: Normal Hydronephrosis: Question of mild left hydronephrosis Cyst or mass: Contour deformity lateral mid right kidney question small mass versus focal area pyelon ephritis. Nephrolithiasis: No Bladder:Not well evaluated Prevoid vol:16 cc Postvoid vol: Not performed Prostate volume 37 cc IMPRESSION: Question mild left hydronephrosis. Question small right renal mass versus pyelonephritis. CT with c ontrast recommended for further evaluation. DATA REPOSITORY:
[2021-10-12] MEDS: ceFAZolin 2 GM/50 ML BAG IVPB ×3 (00:44→15:49)
[2021-10-12 05:07] LABS: Vitamin D 25 Total 63.1 ng/mL (30-100)
[2021-10-12 05:40] LABS: Abs Immature Grans 0.18 10^3/uL (0.0-0.06); Absolute Basophil Count 0.03 10^3/uL (0.0-0.2); Absolute Neutrophil Count 9.64 10^3/uL (1.2-6.7); Basophils % 0.2; Eosinophils % 0.8; HCT 36.1 % (40.0-50.0); HGB 12.4 g/dL (13.5-17.5); Immature Grans % 1.4; Lymphocytes % 10.3; MCH 32.2 pg (27.0-33.0); MCHC 34.3 % (32.0-36.0); MCV 94 fL (80-95); Monocytes % 10.9; Neutrophils % 76.4; Platelet Count 183 10^3/uL (130-400); RBC 3.85 10^6/uL (4.36-5.78); RDW 13.8 % (11.8-14.1); RDW-SD 47.4 fL; WBC 12.62 10^3/uL (4.4-10.8)
[2021-10-12 05:47] LABS: Absolute Monocyte Count 1.38 10^3/uL (0.1-0.8)
[2021-10-12 06:10] LABS: ALT 254 U/L (16-63); AST 253 U/L (15-37); Albumin 1.9 g/dL (3.4-5.0); Alkaline Phosphatase 85 U/L (46-116); Anion Gap 10.6 mmol/L (3-11); BUN 34 mg/dL (7-18); Bilirubin, Total 0.5 mg/dL (0.2-1.0); CO2 23.4 mmol/L (21.0-32.0); CREATININE 0.9 mg/dL (0.70-1.30); Calcium 8.3 mg/dL (8.5-10.1); Chloride 100 mmol/L (98-107); Creatine Kinase 949 U/L (39-308); Glucose 101 mg/dL (74-106); Potassium 3.5 mmol/L (3.5-5.1); Sodium 134 mmol/L (136-145)
[2021-10-12] MEDS: Potassium Chloride 10 MEQ CAPCR 20 MEQ PO (08:21)
[2021-10-12] MEDS: Folic Acid 1 MG TAB PO (08:23)
[2021-10-12] MEDS: dilTIAZem 30 MG TAB PO ×3 (08:23→15:49)
[2021-10-12] MEDS: Apixaban 5 MG TAB PO (08:23)
[2021-10-12] MEDS: Metoprolol 25 MG TAB PO ×3 (08:24→15:48)
[2021-10-12] MEDS: Multivitamin TAB 1 TAB PO (08:24)
[2021-10-12] MEDS: Thiamine 100 MG TAB PO (08:24)
--- NOTE | 2021-10-12 08:29 | PT.INTREAT ---
Date of service: 10/12/21 Time of Service: 07:42 PT Notes Visit Reasons: Rhabdo,Fall Inpatient Physical Therapy Treatment Note [facility] Date: 10/12/2021 PRECAUTIONS: Fall, Activity as tolerated SUBJECTIVE: Cristóbal is agreeable to participating in PT. He states that he is feeling a little bit better, but that his whole right side hurts. OBJECTIVE: PAIN: Patient c/o pain in R hip with gait training BED MOBILITY/TRANSFERS Supine-sit: Max A Sit-stand: Min A from elevated bed surface Stand-sit: CGA with cueing for safety GAIT Assistive Device: FWW Weight bearing: Full Assist: SBA Distance: 200' Deviation: Fatigue, standing rests due to R hip pain THEREX: Patient was instructed in a resisted UE and LE strengthening program, completed in a seated position, to include: heel raises/ankle pumps, LAQ, hip flexion, hip abduction, bicep curls, shoulder flexion, and should abduction. Patient utilized 3# DB in L hand and 2# AW on L ankle for resistance. ASSESSMENT: Patient tolerated session with complaint of R hip pain increasing with gait training. He reports feelings of increased weakness compared to his baseline. He requires CGA-Max A for transfers and bed mobility at this time, demonstrating global weakness. Recommend discharge to SNF-level facility for continued global strengthening prior to returning to home where he lives alone. PLAN: Continue with global strengthening and general conditioning for improved mobility and activity tolerance. TREATMENT CODE/TIME: Session 1: 26 minutes; [id number], [id number] (07:42) Session 2: Patient refused afternoon PT session stating I don't want this repetitious training, it's not going to help me.
--- NOTE | 2021-10-12 08:46 | W.PM.PROGNOT ---
Date of Service Date of service: 10/12/21 Time of Service: 09:31 Assessment and Plan Assessment and plan (1) Sepsis: Status: Acute Assessment and plan: Due to MSSA bacteremia, present on admission. On cefazolin. Repeat blood cultures from yesterday am also positive. No clear source yet, but I am concerned about his L hip prosthesis possibly being seeded and/or the source. Additionally, he appears to have a fluid collection on the dorsum of his R hand. C/s orthopedics. ?UTI - obtain US renal. Obtain a palliative care consult. Keep in ICU. (2) Staphylococcus aureus bacteremia: Status: Acute Assessment and plan: As above Repeat blood cultures also positive. Read above. Repeat blood cultures tomorrow am. Continue cefazolin. (3) Acute UTI: Status: Acute Assessment and plan: Present on admission, in setting of urinary retention, s/p short. Urine C&S with gram positive laine. Continue cefazolin. Continue flomax. Obtain US renal to r/o nephrolithiasis. (4) Atrial fibrillation with rapid ventricular response: Status: Acute Assessment and plan: Rate now better controlled. D/c cardizem gtt. Increase PO cardizem to 30 mg PO q6Hrs; keep lopressor at 25 mg PO QID. Hold anticoagulation given potential for surgical intervention for both R hand and L hip. (5) Elevated troponin I level: Status: Acute Assessment and plan: T2DM in setting of sepsis, Rapid Afib. Not a true ACS. No major abnormalities on echo. Will need outpatient ischemic workup. Control HR. (6) Rhabdomyolysis: Status: Acute Assessment and plan: Improving. Continue to trend CPK. (7) Essential hypertension: Status: Chronic Assessment and plan: BP tolerating cardizem + metoprolol. Continue to monitor. (8) DVT prophylaxis: Status: Acute Assessment and plan: Eliquis on hold in anticipation of a possible surgical procedure. (9) Discharge planning issues: Status: Acute Assessment and plan: Full code Keep in ICU for now. C/s PT, OT, palliative care. Total Critical Care Time 35 minutes. Subjective Subjective Interval history since last seen: Mr Pagan states that his left hip is not hurting as much as it is letting him know it's there. He noticed a R hand area of swelling a couple of days ago, states it is getting a little better. Denies dizziness, chest pain, shortness of breath, nausea. Exam Narrative Exam Narrative: General: Pleasant elderly male, A&Ox3, sitting up in a chair, on RA, appears comfortable HEENT: EOMI, MMM Heart: irregularly irregular rhythm, no m/r/g Lungs: crackles at B bases Abdomen: soft, nontender, nondistended Extremities: no edema BLEs, mottled BLEs Objective Last Vital Signs Temp 37.1 C 10/12/21 07:20 Pulse 75 10/12/21 07:01 Resp 18 10/12/21 07:01 BP 120/62 10/12/21 07:01 Pulse Ox 96 10/12/21 07:01 Laboratory Results - last 24 hr 10/10/21 10/10/21 10/10/21 08:30 08:30 09:15 WBC RBC Hgb Hct MCV MCH MCHC RDW Plt Count MPV Immature Gran % Neutrophils % Lymphocytes % Monocytes % Eosinophils % Basophils % Nucleated RBC % Absolute Neutrophils Absolute Lymphocytes Absolute Monocytes Absolute Eosinophils Absolute Basophils Sodium Potassium Chloride Carbon Dioxide Anion Gap BUN Creatinine Estimated GFR/1.73 m2 Glucose Calcium Total Bilirubin AST ALT Alkaline Phosphatase Creatine Kinase Total Protein Albumin 25-OH Vitamin D Total 63.1 PTH Intact 45 Urine Phosphorus 130.9 Vancomycin Trough 10/11/21 10/12/21 10/12/21 13:20 05:25 05:25 WBC 12.62 H RBC 3.85 L Hgb 12.4 L Hct 36.1 L MCV 94 MCH 32.2 MCHC 34.3 D RDW 13.8 Plt Count 183 MPV 11.0 Immature Gran % 1.4 Neutrophils % 76.4 Lymphocytes % 10.3 Monocytes % 10.9 Eosinophils % 0.8 Basophils % 0.2 Nucleated RBC % 0.0 Absolute Neutrophils 9.64 H Absolute Lymphocytes 1.30 Absolute Monocytes 1.38 H Absolute Eosinophils 0.10 Absolute Basophils 0.03 Sodium 134 L Potassium 3.5 Chloride 100 Carbon Dioxide 23.4 Anion Gap 10.6 BUN 34 H Creatinine 0.9 Estimated GFR/1.73 m2 >= 60.00 Glucose 101 Calcium 8.3 L Total Bilirubin 0.5 AST 253 H ALT 254 H Alkaline Phosphatase 85 Creatine Kinase 949 H Total Protein 6.0 L Albumin 1.9 L 25-OH Vitamin D Total PTH Intact Urine Phosphorus Vancomycin Trough 13.0 PAWSS Have you Been Recently Intoxicated or Drunk Within the Last 30 days?: No Have you Ever Experienced Previous Episodes of Alcohol Withdrawal?: Yes Have you ever Experienced Withdrawal Seizures?: No Have you ever Experienced Delirium Tremens(DT)s?: No Have you ever undergone Alcohol Rehabilitation Treatment (i.e, inpt ot outpatient treatment programs)?: Unable to Obtain Have you ever Experienced Blackouts?: Unable to Obtain Have you ever Combined Alcohol with other Downers within the last 90 days?: No Have you ever Combined Alcohol with any other Substance of Abuse during the last 90 days?: No Positive Blood Alcohol level on Presentation? [PCS.BAL]: No Evidence of Increased Autonomic Activity (i.e. 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
--- NOTE | 2021-10-12 08:51 | PDOC.CMPRO ---
- If Service Date Differs Date of service: 10/12/21 Time of Service: 08:51 Care Management Progress Note S/O: Cristóbal remains in the ICU, on Med/Surg status. Cristóbal may require IV ABX X 4 weeks. Anticipate, Cristóbal may transition to SWB1 for IV ABX and PT, if patient is agreeable. CM continues to follow. A: 86 year old male admitted to [facility] 10/09/21 for Rhabdo, Fall P: Anticipate Cristóbal will discharge to short term SNF prior to returning home. Referrals faxed to the [facility] for review. CM continues to follow.
[2021-10-12] MEDS: Normal Saline Flush 10 ML SYR IVP ×3 (09:01→16:59)
[2021-10-12 11:00] LABS: C-Reactive Protein > 25.00 mg/dL (0.0-0.3)
[2021-10-12 11:28] LABS: Procalcitonin 1.5 ng/mL
--- NOTE | 2021-10-12 15:43 | W.ORTHOCONSU ---
Date of service: 10/12/21 Time of Service: 15:28 Assessment and Plan Assessment and plan (1) Staphylococcus aureus bacteremia: Status: Acute Assessment and plan: 86-year-old male with resolving right dorsal hand infection and left asymptomatic total hip arthroplasty Orthopedics consulted today due to concerns for right dorsal hand abscess and left prosthetic joint infection Patient relates history of right dorsal hand redness and swelling that has significantly improved over the past day. Cannot recall whether there was an IV or blood draw at this location. States the dorsal hand is only minimally uncomfortable at this time, but does restrict his hand and finger range of motion somewhat. Separately, denies any left hip pain or problems with his left hip replacement at all. It was done 15 years ago here by Dr. Au. VAS pain scores have been 0?1 over the past few days. Right hand shows mild resolving erythema about few centimeter area over the dorsal radial hand with moderate localized edema, possibly about a small puncture site. Mild tenderness to palpation. No significant fluid collection, fluctuance, or drainage. Moderate edema extending into the radial digits with moderate limitation to flexion extension, which are otherwise nonirritable. No discomfort about the wrist. Left hip incision is pristine. There is no erythema, edema, or tenderness about the left hip. Patient demonstrates active hip flexion extension and internal and external rotation without difficulty, limited by positioning in chair. Tolerates logroll, axial load, and short arc passive motion without any pain or discomfort at all. Inflammatory markers including WBC and CRP are elevated. Right hand and left hip x-rays are negative for any signs of soft tissue or bone infection. Ultrasound showed small left hand dorsal hand fluid collections. No indication for orthopedic surgery at this time. Resolving, limited dorsal hand soft tissue infection. No significant abscess or fluid collection. Recommend elevation, moist heat, and ice and encourage range of motion to all fingers. Hand therapy/OT can be considered. Left hip is asymptomatic without any signs or symptoms of prosthetic joint infection. Continue to monitor. Discussed with patient, nursing staff, and hospitalist. 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) Heel pain, chronic (Chronic) Paresthesia of hand (Chronic 01/25/14) L>>R, nocturnal, ?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 (also h/o laceration L thumb); 03/2014: 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 No problems noted. 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: No Working smoke detector in home: Yes Carbon monox detector in home: Yes Do you feel safe at home: Yes Do you feel safe in your relationship?: Yes Results Last Vital Signs Temp 97.3 F L 10/12/21 13:36 Pulse 84 10/12/21 13:36 Resp 19 10/12/21 13:36 BP 136/69 10/12/21 13:36 Pulse Ox 96 10/12/21 13:36 Labs Result diagrams: 10/12/21 05:25 10/12/21 05:25 Labs: Laboratory Results - last 24 hr 10/10/21 10/12/21 10/12/21 08:30 05:25 05:25 WBC 12.62 H RBC 3.85 L Hgb 12.4 L Hct 36.1 L MCV 94 MCH 32.2 MCHC 34.3 D RDW 13.8 Plt Count 183 MPV 11.0 Immature Gran % 1.4 Neutrophils % 76.4 Lymphocytes % 10.3 Monocytes % 10.9 Eosinophils % 0.8 Basophils % 0.2 Nucleated RBC % 0.0 Absolute Neutrophils 9.64 H Absolute Lymphocytes 1.30 Absolute Monocytes 1.38 H Absolute Eosinophils 0.10 Absolute Basophils 0.03 Sodium 134 L Potassium 3.5 Chloride 100 Carbon Dioxide 23.4 Anion Gap 10.6 BUN 34 H Creatinine 0.9 Estimated GFR/1.73 m2 >= 60.00 Glucose 101 Calcium 8.3 L Total Bilirubin 0.5 AST 253 H ALT 254 H Alkaline Phosphatase 85 Creatine Kinase 949 H C-Reactive Protein Total Protein 6.0 L Albumin 1.9 L 25-OH Vitamin D Total 63.1 Procalcitonin 10/12/21 10/12/21 05:25 05:25 WBC RBC Hgb Hct MCV MCH MCHC RDW Plt Count MPV Immature Gran % Neutrophils % Lymphocytes % Monocytes % Eosinophils % Basophils % Nucleated RBC % Absolute Neutrophils Absolute Lymphocytes Absolute Monocytes Absolute Eosinophils Absolute Basophils Sodium Potassium Chloride Carbon Dioxide Anion Gap BUN Creatinine Estimated GFR/1.73 m2 Glucose Calcium Total Bilirubin AST ALT Alkaline Phosphatase Creatine Kinase C-Reactive Protein > 25.00 H Total Protein Albumin 25-OH Vitamin D Total Procalcitonin 1.5
[2021-10-12] MEDS: Metoprolol 5 MG/5 ML VIAL IVP (16:58)
[2021-10-12] MEDS: Metoprolol 25 MG TAB 37.5 MG PO (19:43)
[2021-10-12] MEDS: Normal Saline 1,000 ML 125 ML IV (22:13)
[2021-10-12] MEDS: Ondansetron 4 MG/2 ML VIAL IVP (22:13)
[2021-10-12] MEDS: LORazepam 0.5 MG TAB PO (22:13)
[2021-10-12] MEDS: Pantoprazole 40 MG VIAL IVP (22:13)
--- NOTE | 2021-10-12 23:54 | NUR.NOTE ---
Addendum entered by Mee Starkey 10/13/21 00:03: Dr. Albert ordered the diltiazem gtt to be started without a bolus dose Original Note: patient has been having increased heart rate from a rate of 96 at 1500 to now as high as 165. reported to Dr. Guerra at 1650 and she ordered an extra dose of 5mg ivp metoprolol. 2019-pt's heart rate is no better with increased iv and po metoprolol. Dr. Albert had been called and ordered that the iv diltiazem to restart at 5mg/h and titrate up as needed. discontinued the po diltiazem. also ordered that the increased po metoprolol of 37.5 be kept. 2054-pt had been on the commode and then on the bedpan stating he needed to have a bm but was unable to. passed flatus. beginning to c/o nausea and given emesis bag. pt vomited what looked like coffee ground material. pt bathed and the bed changed. emesis heme tested positive. 2121-Dr. Albert called and notified of this. ordered diet changed to clear liquids, NS at 125cc/h, iv zofran, and iv protonix. pt medicated with these.
[2021-10-13] VITALS (62 sets, daily range): BP systolic 104–151; BP diastolic 47–108; PULSE 62–134; RESP 13–25; TEMP 35.9–37.4; O2SAT 88–100
[2021-10-13] MEDS: ceFAZolin 2 GM/50 ML BAG IVPB ×3 (00:17→16:21)
[2021-10-13] MEDS: Normal Saline Flush 10 ML SYR IVP ×6 (00:18→20:20)
[2021-10-13] MEDS: Ondansetron 4 MG/2 ML VIAL IVP ×2 (01:33→09:01)
[2021-10-13] MEDS: dilTIAZem 125 MG in Normal Saline 100 ML 15 MG IV (03:52)
[2021-10-13 05:48] LABS: HCT 31.3 % (40.0-50.0); HGB 10.7 g/dL (13.5-17.5); MCH 32.1 pg (27.0-33.0); MCHC 34.2 % (32.0-36.0); MCV 94 fL (80-95); MPV 10.7 fL (8.0-11.0); Platelet Count 269 10^3/uL (130-400); RBC 3.33 10^6/uL (4.36-5.78); RDW 13.9 % (11.8-14.1); RDW-SD 47.8 fL
[2021-10-13 05:50] LABS: Anion Gap 9.4 mmol/L (3-11); BUN 36 mg/dL (7-18); CO2 24.6 mmol/L (21.0-32.0); CREATININE 0.9 mg/dL (0.70-1.30); Calcium 8.2 mg/dL (8.5-10.1); Chloride 103 mmol/L (98-107); Glucose 154 mg/dL (74-106); Potassium 3.8 mmol/L (3.5-5.1); Sodium 137 mmol/L (136-145)
[2021-10-13 06:02] LABS: ALT 219 U/L (16-63); AST 145 U/L (15-37); Albumin 1.9 g/dL (3.4-5.0); Alkaline Phosphatase 98 U/L (46-116); Bilirubin, Direct 0.4 mg/dL (0.0-0.2); Bilirubin, Total 0.7 mg/dL (0.2-1.0); C-Reactive Protein 21.49 mg/dL (0.0-0.3); Creatine Kinase 545 U/L (39-308); Total Protein 5.7 g/dL (6.4-8.2)
[2021-10-13 06:11] LABS: Absolute Eosinophil Count 0.17 10^3/uL (0.0-0.7); Absolute Lymphocyte Count 1.38 10^3/uL (1.2-3.4); Absolute Monocyte Count 0.87 10^3/uL (0.1-0.8); Absolute Neutrophil Count 14.53 10^3/uL (1.2-6.7); Bands % 4; Diff Comment Manual Differential; Metamyelocytes % 2
[2021-10-13 06:12] LABS: RBC Morphology Normal
[2021-10-13] MEDS: Normal Saline 1,000 ML 125 ML IV (06:25)
--- NOTE | 2021-10-13 08:05 | W.UROLOGYCON ---
Date of service: 10/13/21 Time of Service: 15:37 Assessment and Plan Assessment and plan (1) Hydronephrosis: Status: Acute Assessment and plan: The CT scan was more definitive than the ultrasound and no hydronephrosis is seen. Both clinically and radiographically, there is no real evidence of pyelonephritis. His urine culture is not growing any uropathogens. He has had persistent positive blood cultures, but I do not find any obvious urologic source. We do sometimes see Staph aureus prostate abscess, but this is a finding in immunocompromised patients who have chronic indwelling catheters. History of Present Illness History of Present Illness Chief Complaint: Left hydronephrosis Narrative: This is an 86-year-old gentleman who was admitted to the hospital after a fall at home. As part of his evaluation, he was found to have persistently positive staph aureus blood cultures. The exact source of the infection has not yet been identified. He was evaluated with a renal ultrasound which raised the question of mild left hydronephrosis. I have been asked to see him for the hydronephrosis and possible pyelonephritis. The patient denies any history of urinary tract infection or urologic surgery. The is not having any flank pain. He has no history of kidney stones. He tells me that he does not have any chills. In fact, he feels better today after he had an NG tube placed. Earlier today, his hemoglobin dropped and he had coffee-ground emesis. In addition to the NG tube being placed, he had a CT of the abdomen and pelvis. I reviewed his [facility] records. He has only seen dermatology with no prior urology visits. Review of Systems Constitutional Constitutional: Denies chills Cardiovascular Cardiovascular: Denies chest pain Respiratory Respiratory: Denies cough and Denies hemoptysis Musculoskeletal Musculoskeletal: Reports other (Right arm pain) Neurologic Neurologic: Denies convulsions [facility] All Active Problems (Updated 10/13/21 @ 15:43 by Archana Ernst MD) Hydronephrosis (Acute) Cellulitis and abscess of hand (Acute) Atelectasis (Acute) Ascites (Acute) Hypoalbuminemia (Acute) Leukocytosis (Acute) Transaminitis (Acute) SBO (small bowel obstruction) (Acute) Anemia due to acute blood loss (Acute) Upper GI bleeding (Acute) Discharge planning issues (Acute) Sepsis (Acute) DVT prophylaxis (Acute) Staphylococcus aureus bacteremia (Acute) Atrial fibrillation with rapid ventricular response (Acute) Elevated troponin I level (Acute) Rhabdomyolysis (Acute) Dehydration (Acute) Acute UTI (Acute) Snoring (Chronic) 01/2018: declines Sleep Medicine eval; 06/2019: continues to decline 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) Heel pain, chronic (Chronic) Paresthesia of hand (Chronic 01/25/14) L>>R, nocturnal, ?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 (also h/o laceration L thumb); 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 No problems noted. 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 His vital signs are documented elsewhere His abdomen is tympanitic, but there are no peritoneal signs. He has an NG tube in place that is draining black-colored liquid. He has no CVA tenderness Ibrahim is in place and is draining clear urine He is awake and alert He has had multiple blood cultures growing staph aureus. His urine culture has grown gram-positive laine I reviewed his renal ultrasound on the PACS system. I do not see any evidence of kidney stones. I do not see any perinephric abscess or collection. There is concern that there may be mild hydronephrosis on the left side. He had a CT scan this afternoon. I reviewed those films and there is no evidence of hydronephrosis, hydroureter or an obstructive process. There is no perinephric stranding concerning for pyelonephritis Results Last Vital Signs Temp 35.9 C L 10/13/21 08:02 Pulse 120 H 10/13/21 08:02 Resp 18 10/13/21 08:02 BP 116/64 10/13/21 08:02 Pulse Ox 96 10/13/21 08:02 Labs Result diagrams: 10/13/21 12:04 10/13/21 05:25 Labs: Laboratory Results - last 24 hr 10/12/21 10/12/21 10/13/21 05:25 05:25 05:25 WBC RBC Hgb Hct MCV MCH MCHC RDW Plt Count MPV Immature Gran % Neutrophils % Band Neutrophils % Lymphocytes % Monocytes % Eosinophils % Basophils % Metamyelocytes % Nucleated RBC % Absolute Neutrophils Absolute Lymphocytes Absolute Monocytes Absolute Eosinophils Absolute Basophils RBC Morphology Sodium Potassium Chloride Carbon Dioxide Anion Gap BUN Creatinine Estimated GFR/1.73 m2 Glucose Calcium Magnesium 2.0 Total Bilirubin 0.7 Conjugated Bilirubin 0.4 H AST 145 H ALT 219 H Alkaline Phosphatase 98 Creatine Kinase 545 H C-Reactive Protein > 25.00 H 21.49 H Total Protein 5.7 L Albumin 1.9 L Procalcitonin 1.5 10/13/21 10/13/21 05:25 05:25 WBC 17.30 H RBC 3.33 L Hgb 10.7 L Hct 31.3 L MCV 94 MCH 32.1 MCHC 34.2 RDW 13.9 Plt Count 269 MPV 10.7 Immature Gran % 0.0 Neutrophils % 80.0 Band Neutrophils % 4 Lymphocytes % 8.0 Monocytes % 5.0 Eosinophils % 1.0 Basophils % 0.0 Metamyelocytes % 2 Nucleated RBC % 0.0 Absolute Neutrophils 14.53 H Absolute Lymphocytes 1.38 Absolute Monocytes 0.87 H Absolute Eosinophils 0.17 Absolute Basophils 0.00 RBC Morphology Normal Sodium 137 Potassium 3.8 Chloride 103 Carbon Dioxide 24.6 Anion Gap 9.4 BUN 36 H Creatinine 0.9 Estimated GFR/1.73 m2 >= 60.00 Glucose 154 H Calcium 8.2 L Magnesium Total Bilirubin Conjugated Bilirubin AST ALT Alkaline Phosphatase Creatine Kinase C-Reactive Protein Total Protein Albumin Procalcitonin
--- NOTE | 2021-10-13 08:38 | PDOC.CMPRO ---
- If Service Date Differs Date of service: 10/13/21 Time of Service: 08:38 Care Management Progress Note S/O: Cristóbal remains in the ICU, on Med/Surg status. He is alert, oriented and easy to engage in conversation. Awaiting determination regarding terminologist antibiotic course. Anticipate, Cristóbal may transition to SWB1 for IV ABX and PT. CM continues to follow. A: 86 year old male admitted to [facility] 10/09/21 for Rhabdo, Fall P: Per Cristóbal will likely require short term SNF for IV ABX prior to returning home; likely [facility] SWB1. CM continues to follow.
--- NOTE | 2021-10-13 08:41 | W.PULMCC ---
General Date of Service Date of service: 10/13/21 Time of Service: 08:41 Reason for Admission to ICU: Hematemesis Rhabdo MSSA bacteremia Assessment and Plan Assessment and plan (1) SBO (small bowel obstruction): Status: Acute (2) Anemia due to acute blood loss: Status: Acute (3) Upper GI bleeding: Status: Acute (4) Sepsis: Status: Acute (5) Staphylococcus aureus bacteremia: Status: Acute (6) Atrial fibrillation with rapid ventricular response: Status: Acute (7) Rhabdomyolysis: Status: Acute (8) Transaminitis: Status: Acute (9) Leukocytosis: Status: Acute (10) Hypoalbuminemia: Status: Acute (11) Ascites: Status: Acute (12) Atelectasis: Status: Acute (13) Hydronephrosis: Status: Acute (14) Cellulitis and abscess of hand: Status: Acute Assessment and plan: This is an 86 yo man with several active medical issues. On my assessment of him this morning most concerning was the lack of bowel sounds and distended and tender abdomen. I recommended a flat plate which was done and found distention of the stomach which prompted a CT whi found an SBO. This is in addition to his MSSA bacteremia and hematemesis. Surgery was already consulted for possible EGD, so they will be able to weigh in on the SBO as well. He is a higher risk surgical candidate due to all of his active medical issues so he would ideally be managed conservatively with an NGT. He has had repeat blood cultures performed and his echo is clear of vegetations. The MSSA bacteremia is likely due to the hand abscess/cellulitis (ortho has assessed and no clear fluid pocket anymore for drainage). Recommendations Pulmonary: Atelectasis - recommend Acapella and IS Cardiac: A.fib with RVR - requiring diltiazem drip in addition to scheduled Lopressor - given the SBO, it could be that the prior PO Lopressor was not be adequately absorbed - was on Eliquis - now on hold Renal: Rhabdomyolysis - resolved now Hydronephrosis - urology consulted for this - seen on renal U/S - having good UOP I&O: Intake & Output 10/10/21 10/11/21 10/12/21 10/13/21 23:59 23:59 23:59 23:59 Intake Total 3808.333 / 3808.333 1648.833 / 1636.582 1246.717 / 9038.093 8730.5 / 1402.5 Output Total 675 / 950 1150 / 1150 1650 / 1650 950 / 950 Balance 3133.333 / 2858.333 498.833 / 498.833 -393.283 / -393.283 452.5 / 452.5 Weight 80.3 kg 81.8 kg 84.7 kg 84.5 kg Daily Fluid Goal:: even to slightly negative GI Nutrition: Small bowel obstruction - surgery consulted - likely conservative management if able - recommend NGT - patient willing if inserted with lidocaine - recommend low intermittent suction of NGT - NPO for now - would not given any maintenance fluids - small fluid boluese (500cc) as needed to maintain euvolemia, but on my exam today he is on the slightly hypervolemic side Hematemesis - surgery consulted - would trend H/H q8hr - I palced order to start this evening at 8pm as last check was noon - recommend against transfusing blood unless there is massive hematemesis occuring or if Hb drops below 7, and then recommend only 1 unit at a time, again unless massive transfusion protocol is needed or such a low drop that 1 unit will not replete - NPO - Zofran as needed - PPI IV bid and sucralfate Date of Last Bowel Movement: 10/10/21 Infectious Disease: MSSA Bacteremia - continue cefazolin - f/u blood cultures obtained today Hematologic: Leukocytosis - due to infection Neurologic: No acute concerns - but do recommend against Benadryl in this elderly gentleman with emesis issue as this can be sedating and is a known deleriogenic Endocrine: No acute concerns Continue to monitor daily glucose Lines: PIV [place] NGT Prophylaxis: Protonix Eliquis held due to bleeding Code Status: Resuscitation Status Full Code Subjective Critical and life-threatening events over the past 24 hours: This is a 86 yo man who is admitted to the ICU for multiple medical reasons. He has MSSA bacteremia due to a possible hand ulcer in addition to rhabdomyolysis that has improved. I evaluated him today due to his ICU status. He continues to have hematemesis with a slowly declining Hb. He was evaluated by ortho due to hip implant in the setting of bacteremia and the hand abscess. They did not feel as though the hip was a concern. There is a concern for hydronephrosis and so urology has been consulted. Palliative care has also been consulted. He tells me this morning that he keeps heaving and feeling as though he will vomit again. I ask about bowel movements and he tells me that his last BM was 3 days ago. He said he tried to have a bowel movement yesterday but just gas came out. He continues by stating that the last time he had gas was yesterday. I ask about his belly. 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 Exam Narrative Exam Narrative: Gen: in mild distress, normal respiratory effort, well-nourished HENT: PERRL Chest: No respiratory distress, normal appearance of chest, clear to auscultation bilaterally, no crackles or wheezes, normal inspiratory effort Heart: regular rate and rhythym, no murmurs, rubs or gallops Abdomen: Distended, rigid, mildly tender, no bowel sounds heard in 30 seconds of continuous listening Extremities: No clubbing, + edema or B/L LE, cyanosis, rashes Neuro: AAOx3 , non focal Psych: cooperative, appropriate mental affect Most Recent VS/Results Last Vital Signs Temp 35.9 C L 10/13/21 08:02 Pulse 120 H 10/13/21 08:02 Resp 18 10/13/21 08:02 BP 116/64 10/13/21 08:02 Pulse Ox 96 10/13/21 08:02 Laboratory Results - last 24 hr 10/12/21 10/12/21 10/13/21 05:25 05:25 05:25 WBC RBC Hgb Hct MCV MCH MCHC RDW Plt Count MPV Immature Gran % Neutrophils % Band Neutrophils % Lymphocytes % Monocytes % Eosinophils % Basophils % Metamyelocytes % Nucleated RBC % Absolute Neutrophils Absolute Lymphocytes Absolute Monocytes Absolute Eosinophils Absolute Basophils RBC Morphology Sodium Potassium Chloride Carbon Dioxide Anion Gap BUN Creatinine Estimated GFR/1.73 m2 Glucose Calcium Magnesium 2.0 Total Bilirubin 0.7 Conjugated Bilirubin 0.4 H AST 145 H ALT 219 H Alkaline Phosphatase 98 Creatine Kinase 545 H C-Reactive Protein > 25.00 H 21.49 H Total Protein 5.7 L Albumin 1.9 L Procalcitonin 1.5 10/13/21 10/13/21 05:25 05:25 WBC 17.30 H RBC 3.33 L Hgb 10.7 L Hct 31.3 L MCV 94 MCH 32.1 MCHC 34.2 RDW 13.9 Plt Count 269 MPV 10.7 Immature Gran % 0.0 Neutrophils % 80.0 Band Neutrophils % 4 Lymphocytes % 8.0 Monocytes % 5.0 Eosinophils % 1.0 Basophils % 0.0 Metamyelocytes % 2 Nucleated RBC % 0.0 Absolute Neutrophils 14.53 H Absolute Lymphocytes 1.38 Absolute Monocytes 0.87 H Absolute Eosinophils 0.17 Absolute Basophils 0.00 RBC Morphology Normal Sodium 137 Potassium 3.8 Chloride 103 Carbon Dioxide 24.6 Anion Gap 9.4 BUN 36 H Creatinine 0.9 Estimated GFR/1.73 m2 >= 60.00 Glucose 154 H Calcium 8.2 L Magnesium Total Bilirubin Conjugated Bilirubin AST ALT Alkaline Phosphatase Creatine Kinase C-Reactive Protein Total Protein Albumin Procalcitonin Review of Systems All systems reviewed & are unremarkable except as noted in HPI and below Time spent with patient Time spent in Critical Care: 65 Time spent in Critical care included: Coordination of care, Chart review, Documenting critically ill care, Time at immediate bedside and Discussing critically ill care with other medical staff Multi-Disciplinary Checklist Lines/Tubes CENTRAL LINE: no ARTERIAL LINE: no [place]: yes, [place] Day#: 4 ENDOTRACHEAL TUBE: no ICU Maintenance GLUCOSE 140-180mg/dL: yes NUTRITION AT GOAL: no, Reason/Intervention: NPO due to SBO and hematemesis PRESSURE ULCER: no RESTRAINTS: no ANTIBIOTICS(if yes, consider Stewardship): Yes Social Issues FAMILY UPDATED: yes PT/OT: yes GOALS/DISPOSITION/OBSTETRICS 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
--- NOTE | 2021-10-13 08:46 | OTIE_ITS ---
Occupational Therapy Notes Inpatient Occupational Therapy Evaluation Date: 10/13/21 Referring Doctor:Dr. Guerra OT Orders: Non urgent Precautions: Fall, sTandard, Full PATIENT PROFILE/ADMITTING DIAGNOSIS: Pt is an 86 year old male who was admitted to the ICU with the following dx of sepsis, staphylococcus aureus bactremia, A- fib wuth rapid ventricular response, elevated troponin, rhabdimyolysis, dehydration, acute UTI, severe CTS (R) wrist, heel pain chronic. Past Medical History: All Active Problems? 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 Endoscopic Carpal Tunnel release (07/15/17) Angely- LEFTHistory of total left hip arthroplasty Hx of appendectomy Hx of lumbar discectomy Social History/Home Situation: Pt is an 86 year old male who states that he lives in a private home. He does talk about his son and daughter in law who he reports come to visit him and he has a son in [place]. He reports to this OT that he is (I) at his baseline level of function with all aspects of his ADLS. Equipment owned/DME: Pt reports none. SUBJECTIVE: Pt was lying in bed, he reports that he needs to vomit but refuses to sit in the upright position reporting that he will just swallow it if he is sitting. He prefers to be lying down because it can come out of his mouth easier without swallowing it. OBJECTIVE: General Observation: IV, telemetry, BP cuff on (L) UE Mental Status: A&Ox2 Pain: c/o pain in abdomen and UE ROM: RUE (R) elbow ROM is limited into flexion, shoulder flexion WFL, digits WFL, remarkable edema on the dorsal hand which is sore L UE AROM WFL STRENGTH: RUE Unable to test LUE 3/5 FUNCTIONAL MOBILITY/ADLS: BATHING Pt refuses he states that he feels too sick to perform this at todays session. He is able to touch his face with his (L) UE which would help with his (I) in washing his face. DRESSING NT OT assessed pts functional ROM Which he tolerated ok, he states that he is most likely going to vomit and is not willing to perform his ADLS today. SPECIAL TESTS: Daily Activity Limitations Standardized Measure [facility] AM -PAC ?6 clicks? Daily Activity Inpatient Short Form: Raw score: 10 Standardized score: 27.31 CMS score: 74.70% INFORMED CONSENT/EDUCATION: Pt instructed in purpose of OT Consult and plan of care. ASSESSMENT: Patient is a 86-year-old male referred to occupational therapy services with diagnosis of sepsis, staphylococcus aureus bactremia, A-fib wuth rapid ventricular response, elevated troponin, rhabdimyolysis, dehydration, acute UTI, severe CTS (R) wrist, heel pain chronic. Patient presents with clinical signs and symptoms consistent with dx, as demonstrated by the following impairment level findings/functional limitations: Impairments in ADL/IADL and leisure activities, decreased functional activity tolerance, decreased strength, pain in (R) UE, decreased cognitive awareness from evaluation with discussion with pt, decreased safety awareness. AMPAC score 10 Patient is assessed as a Moderate [id number] complexity based on the following: History: see above Examination: see functional limitations as noted above Presentation: evolving Decision Making: AMPAC score 10 GOALS Goals x1 week 1. Grooming sitting on side of the bed min (A) with brushing teeth 2. Dressing sitting on side of the bed min (A) UE/LE 3. Bathing sitting on side of the bed min (A) 4. Toileting on toilet (I) 5. Eating (I) PLAN OF CARE/TREATMENT PLAN: 1x/day, 5 days/ week x 1week Initiate Occupational Therapy Services for bathing, dressing, grooming, toileting, eating, transfer training. DISCHARGE RECOMMENDATIONS OT recommends that pt return home with HH services vs. SNF when medically cleared per MD. TREATMENT TIME/MINUTES/CODES [id number] Shruti Lopes OTR/[facility]
[2021-10-13 08:59] LABS: Lactate 1.7 mmol/L (0.6-1.4)
[2021-10-13] MEDS: Pantoprazole 40 MG VIAL 80 MG IVP ×2 (09:22→20:18)
[2021-10-13] MEDS: Metoprolol 25 MG TAB 37.5 MG PO (09:29)
[2021-10-13] MEDS: Folic Acid 1 MG TAB PO (09:29)
[2021-10-13] MEDS: Multivitamin TAB 1 TAB PO (09:30)
[2021-10-13] MEDS: Potassium Chloride 10 MEQ CAPCR 20 MEQ PO (09:32)
[2021-10-13] MEDS: Sucralfate 1 GM TAB PO ×3 (09:32→20:19)
[2021-10-13] MEDS: Thiamine 100 MG TAB PO (09:32)
--- NOTE | 2021-10-13 10:00 | DI.RAD_ITS ---
Exam(s) XR ABDOMEN FLAT PLATE EXAM: 2D digital imaging was performed. CLINICAL HISTORY: ?SBO. COMPARISON: No exams were available for comparison TECHNIQUE: Supine views of the abdomen performed. Two views were obtained. FINDINGS: BOWEL GAS PATTERN: The stomach is moderately distended. The remainder of the bowel is of normal rohini chaparro. There is a moderate amount of stool seen throughout the colon. CALCIFICATIONS: No radiopaque calcifications. OSSEOUS STRUCTURES: Normal for age. The patient has a left total hip replacement which is incompletel y imaged. OTHER FINDINGS: The lung bases are clear. IMPRESSION: 1. Moderately distended stomach. The remainder of the bowel is of normal caliber. 2. There is a moderate amount of stool throughout the colon. DATA REPOSITORY: RADIATION DOSE DELIVERED:
--- NOTE | 2021-10-13 10:06 | NUR.NOTE ---
X-ray taken. reviews x-ray on unit and order NG tube placement.Nursing Note:
--- NOTE | 2021-10-13 10:06 | W.PM.PROGNOT ---
Date of Service Date of service: 10/13/21 Time of Service: 09:00 Assessment and Plan Assessment and plan (1) Upper GI bleeding: Status: Acute Assessment and plan: NPO. NGT inserted due to suspicion for gastric outlet obstruction as well as possible SBO. IV protonix [address] abdomen/pelvis. Discused with Dr Caldera. (2) Sepsis: Status: Acute Assessment and plan: Due to MSSA bacteremia, present on admission. On cefazolin. Repeat blood cultures 10/11 positive for GPCs. Repeat blood cultures done this morning. No evidence endocarditis by echo. Urology consulted for possible L hydro/UTI as a source. MRI L hip prosthesis ordered for Saturday when patient is more stable. R hand abscess does not appear to require drainage, per ortho. Obtain a palliative care consult. Keep in ICU. (3) Staphylococcus aureus bacteremia: Status: Acute Assessment and plan: As above Continue cefazolin. (4) Anemia due to acute blood loss: Status: Acute Assessment and plan: Recheck at H/H at noon. (5) Acute UTI: Status: Acute Assessment and plan: Present on admission, in setting of urinary retention, s/p short. Urine C&S with gram positive laine. Continue cefazolin. Continue flomax. US renal with mild L-sided hydronephrosis. No stones. Urology is consulted. (6) Atrial fibrillation with rapid ventricular response: Status: Acute Assessment and plan: Rate worse/rapid again. Restarted on cardizem gtt. As NPO, will schedule IV lopressor. Hold anticoagulation given GI bleeding. (7) Elevated troponin I level: Status: Acute Assessment and plan: T2DM in setting of sepsis, Rapid Afib. Not a true ACS. No major abnormalities on echo. Will need outpatient ischemic workup. Control HR. (8) Rhabdomyolysis: Status: Acute Assessment and plan: Improving. Continue to trend CPK. (9) Essential hypertension: Status: Chronic Assessment and plan: BP tolerating cardizem + metoprolol. Continue to monitor. (10) DVT prophylaxis: Status: Acute Assessment and plan: Eliquis on hold due to GI bleeding (11) Discharge planning issues: Status: Acute Assessment and plan: Full code Keep in ICU for now. C/s PT, OT, palliative care. Discussed with Luna Ernst and Werner Total Critical Care Time 60 minutes. Subjective Subjective Interval history since last seen: The patient stated that he last had flatus yesterday morning at 10:30 (tried to have a BM at that time but could not). Last night, he developed coffee-ground emesis. This morning, he noted that his abdomen is more distended. No flatus since yesterday am. He remains nauseated. HR in 120s. Cardizem gtt restarted - HR 120. Denies dizziness, chest pain, shortness of breath. Endorses abdominal discomfort. His only known abdominal surgical history is appendectomy. Exam Narrative Exam Narrative: General: Pleasant elderly male, A&Ox3, laying in bed, dry heaving, looks uncomfortable HEENT: EOMI, MMM, ecchymosis on chin (there yesterday as well). Heart: irregularly irregular rhythm, no m/r/g Lungs: CTAB Abdomen: Distended, mildly diffusely tender, no bowel sounds, dry heaving Extremities: no edema BLEs Objective Last Vital Signs Temp 35.9 C L 10/13/21 08:02 Pulse 120 H 10/13/21 08:02 Resp 18 10/13/21 08:02 BP 116/64 10/13/21 08:02 Pulse Ox 96 10/13/21 08:02 Laboratory Results - last 24 hr 10/12/21 10/12/21 10/13/21 05:25 05:25 05:25 WBC RBC Hgb Hct MCV MCH MCHC RDW Plt Count MPV Immature Gran % Neutrophils % Band Neutrophils % Lymphocytes % Monocytes % Eosinophils % Basophils % Metamyelocytes % Nucleated RBC % Absolute Neutrophils Absolute Lymphocytes Absolute Monocytes Absolute Eosinophils Absolute Basophils RBC Morphology VBG Lactate Sodium Potassium Chloride Carbon Dioxide Anion Gap BUN Creatinine Estimated GFR/1.73 m2 Glucose Calcium Magnesium 2.0 Total Bilirubin 0.7 Conjugated Bilirubin 0.4 H AST 145 H ALT 219 H Alkaline Phosphatase 98 Creatine Kinase 545 H C-Reactive Protein > 25.00 H 21.49 H Total Protein 5.7 L Albumin 1.9 L Procalcitonin 1.5 10/13/21 10/13/21 10/13/21 05:25 05:25 08:52 WBC 17.30 H RBC 3.33 L Hgb 10.7 L Hct 31.3 L MCV 94 MCH 32.1 MCHC 34.2 RDW 13.9 Plt Count 269 MPV 10.7 Immature Gran % 0.0 Neutrophils % 80.0 Band Neutrophils % 4 Lymphocytes % 8.0 Monocytes % 5.0 Eosinophils % 1.0 Basophils % 0.0 Metamyelocytes % 2 Nucleated RBC % 0.0 Absolute Neutrophils 14.53 H Absolute Lymphocytes 1.38 Absolute Monocytes 0.87 H Absolute Eosinophils 0.17 Absolute Basophils 0.00 RBC Morphology Normal VBG Lactate 1.7 H Sodium 137 Potassium 3.8 Chloride 103 Carbon Dioxide 24.6 Anion Gap 9.4 BUN 36 H Creatinine 0.9 Estimated GFR/1.73 m2 >= 60.00 Glucose 154 H Calcium 8.2 L Magnesium Total Bilirubin Conjugated Bilirubin AST ALT Alkaline Phosphatase Creatine Kinase C-Reactive Protein Total Protein Albumin Procalcitonin PAWSS Have you Been Recently Intoxicated or Drunk Within the Last 30 days?: No Have you Ever Experienced Previous Episodes of Alcohol Withdrawal?: Yes Have you ever Experienced Withdrawal Seizures?: No Have you ever Experienced Delirium Tremens(DT)s?: No Have you ever undergone Alcohol Rehabilitation Treatment (i.e, inpt ot outpatient treatment programs)?: Unable to Obtain Have you ever Experienced Blackouts?: Unable to Obtain Have you ever Combined Alcohol with other Downers within the last 90 days?: No Have you ever Combined Alcohol with any other Substance of Abuse during the last 90 days?: No Positive Blood Alcohol level on Presentation? [PCS.BAL]: No Evidence of Increased Autonomic Activity (i.e. HR>120, tremor, sweating, agitation, nausea)?: No Result: 1
--- NOTE | 2021-10-13 11:30 | SCONE_ITS ---
Date of service: 10/13/21 Time of Service: 12:24 Assessment and Plan Assessment and plan (1) Upper GI bleeding: Status: Acute Assessment and plan: -NG tube in place with dark blood -Transfuse to maintain Hb >7 -Q6hr Hb/Hct -BID IV Protonix -Reversal with Kcentra as no other agent available -Hold all anticoagulation -Possible ulcer vs variceal bleed given significant drinking history. If still bleeding in AM will consider diagnostic EGD here vs tertiary care center as lack of endoscopic ability to treat bleeding here. (2) Anemia due to acute blood loss: Status: Acute (3) SBO (small bowel obstruction): Status: Acute History of Present Illness Narrative: 86 year old male admitted after mechanical fall and prolonged downtime, found to be in atrial fibrillation on admission and anticoagulated with eliquis. He has developed hematemesis and upper GI bleed. No hx of colonoscopy or EGD, takes a lot of supplements and has aa significant alcohol intake. Surgery consulted for possible EGD to determine cause of bleeding. Hemoglobin slowly down-trending, eliquis held no reversal given. 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 Consults Consult date: 10/13/21 Requesting physician: Kimberly Guerra Review of Systems All systems reviewed & are unremarkable except as noted in HPI and below Constitutional Constitutional: Reports as per HPI and Reports weakness Gastrointestinal Gastrointestinal: Reports coffee ground emesis, Reports nausea and Reports vomiting Neurologic Neurologic: Reports weakness PFSH All Active Problems (Updated 10/13/21 @ 15:59 by Brandy Garner NP) Goals of care, counseling/discussion (Acute) Hydronephrosis (Acute) Cellulitis and abscess of hand (Acute) Atelectasis (Acute) Ascites (Acute) Hypoalbuminemia (Acute) Leukocytosis (Acute) Transaminitis (Acute) SBO (small bowel obstruction) (Acute) Anemia due to acute blood loss (Acute) Upper GI bleeding (Acute) Discharge planning issues (Acute) Sepsis (Acute) DVT prophylaxis (Acute) Staphylococcus aureus bacteremia (Acute) Atrial fibrillation with rapid ventricular response (Acute) Elevated troponin I level (Acute) Rhabdomyolysis (Acute) Dehydration (Acute) Acute UTI (Acute) Snoring (Chronic) 01/2018: declines Sleep Medicine eval; 06/2019: continues to decline 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) Heel pain, chronic (Chronic) Paresthesia of hand (Chronic 01/25/14) L>>R, nocturnal, ?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 (also h/o laceration L thumb); 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 No problems noted. 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 truck driver heavy: No Working smoke detector in home: Yes Carbon monox detector in home: Yes Do you feel safe at home: Yes Do you feel safe in your relationship?: Yes Exam Const General: cooperative, comfortable and no acute distress Nutritional Appearance: average body habitus Resp Effort & Inspection: normal respiratory effort and able to speak in complete sentences Cardio Rate: tachycardic Rhythm: abnormal rhythm irregularly irregular GI Inspection: normal to inspection and non-distended Palpation: soft, no guarding and nontender Skin Trauma: abrasion (chin) Neuro General: patient alert, patient awake and patient oriented x3 Results Last Vital Signs Temp 96.6 F L 10/13/21 08:02 Pulse 120 H 10/13/21 08:02 Resp 18 10/13/21 08:02 BP 116/64 10/13/21 08:02 Pulse Ox 96 10/13/21 08:02 Labs Result diagrams: 10/13/21 12:04 10/13/21 05:25 Labs: Laboratory Results - last 24 hr 10/13/21 10/13/21 10/13/21 05:25 05:25 05:25 WBC 17.30 H RBC 3.33 L Hgb 10.7 L Hct 31.3 L MCV 94 MCH 32.1 MCHC 34.2 RDW 13.9 Plt Count 269 MPV 10.7 Immature Gran % 0.0 Neutrophils % 80.0 Band Neutrophils % 4 Lymphocytes % 8.0 Monocytes % 5.0 Eosinophils % 1.0 Basophils % 0.0 Metamyelocytes % 2 Nucleated RBC % 0.0 Absolute Neutrophils 14.53 H Absolute Lymphocytes 1.38 Absolute Monocytes 0.87 H Absolute Eosinophils 0.17 Absolute Basophils 0.00 RBC Morphology Normal VBG Lactate Sodium 137 Potassium 3.8 Chloride 103 Carbon Dioxide 24.6 Anion Gap 9.4 BUN 36 H Creatinine 0.9 Estimated GFR/1.73 m2 >= 60.00 Glucose 154 H Calcium 8.2 L Magnesium 2.0 Total Bilirubin 0.7 Conjugated Bilirubin 0.4 H AST 145 H ALT 219 H Alkaline Phosphatase 98 Creatine Kinase 545 H C-Reactive Protein 21.49 H Total Protein 5.7 L Albumin 1.9 L 10/13/21 08:52 WBC RBC Hgb Hct MCV MCH MCHC RDW Plt Count MPV Immature Gran % Neutrophils % Band Neutrophils % Lymphocytes % Monocytes % Eosinophils % Basophils % Metamyelocytes % Nucleated RBC % Absolute Neutrophils Absolute Lymphocytes Absolute Monocytes Absolute Eosinophils Absolute Basophils RBC Morphology VBG Lactate 1.7 H Sodium Potassium Chloride Carbon Dioxide Anion Gap BUN Creatinine Estimated GFR/1.73 m2 Glucose Calcium Magnesium Total Bilirubin Conjugated Bilirubin AST ALT Alkaline Phosphatase Creatine Kinase C-Reactive Protein Total Protein Albumin
[2021-10-13] MEDS: Omnipaque 350 MG/ML 100 ML BTL IJ (11:44)
--- NOTE | 2021-10-13 11:45 | DI.CT_ITS ---
Exam(s) CT ABDOMEN PELVIS W EXAM: CT ABDOMEN PELVIS W CLINICAL HISTORY: ?gastric outlet obstruction TECHNIQUE: Imaging Protocol: Axial computed tomography images with coronal and sagittal reformatted images were created and reviewed CONTRAST MATERIAL: Intravenous: Omnipaque 350ml Contrast volume:100 mL Oral: No COMPARISON: No exams were available for comparison FINDINGS: ABDOMEN: Lung Bases: There are small bilateral pleural effusions and bilateral subjacent infiltrates. Coronar y artery calcifications are present. There is a nasogastric tube with its tip in the stomach. Liver: Normal density. There is a 1.7 cm cyst in the liver. No suspicious hepatic masses are seen. Portal, Superior Mesenteric, and Splenic Veins: Unremarkable. Gallbladder and Biliary Tract: The gallbladder is distended. No stones are seen. There is no biliar y ductal dilatation. Pancreas: Normal density, no abnormal calcifications or inflammatory process. Spleen: Normal. Adrenals: No masses seen. Kidneys: Normal size, contour and axis. No radiodense stones or obstructive uropathy. No masses seen. Abdominal Aorta: Abdominal portion non-dilated. There is atherosclerosis present. Bowel: There is dilatation of the stomach duodenum and proximal small bowel. The transition appears to lie in the left abdomen. The distal small bowel is of normal caliber. The colon is of normal beny iber. There is soft tissue material seen within the distal stomach and proximal duodenum. The proxi mal duodenum is dilated up to 6.3 cm. No evidence of appendicitis. Peritoneal Cavity: There is a small amount of pelvic ascites. No free air. Lymph Nodes: Within normal limits. Bones: The patient has a left total hip replacement. Age-appropriate degenerative changes are seen i n the spine. Soft Tissues: There are bilateral fat containing inguinal hernia. PELVIS: Bladder: The urinary bladder is incompletely distended with a Ibrahim catheter in place limiting evalua tion. Reproductive Organs: Unremarkable as visualized. Lymph Nodes: Within normal limits. Bones: Within normal limits for the patient's age. IMPRESSION: 1. Findings suggestive of a small-bowel obstruction with a transition in the region of the left abdom en. 2. Dilatation of the stomach and duodenum which likely is secondary to the small bowel obstruction. There is debris seen within the distal stomach and duodenum but no bowel wall thickening or definite mass is identified. 3. Bilateral small pleural effusions and subjacent infiltrate which may represent atelectasis or pneu monia. 4. Trace amount of pelvic ascites. No pneumoperitoneum. RADIATION DOSE DELIVERED: 1,020.19mGy.cm Total DLP DATA REPOSITORY: All CT scans at this facility are submitted to the National Radiology Data Registry (NRDR) Dose Index Registry (DIR) with the [employer] (ACR). RADIATION OPTIMIZATION: All CT scans at this facility use at least one of these dose optimization te chniques: automated exposure control; mA and/or kV adjustment per patient size (includes targeted exa ms where dose is matched to clinical indication); or iterative reconstruction.
[2021-10-13 12:05] LABS: HCT 26.2 % (40.0-50.0); HGB 9.3 g/dL (13.5-17.5)
--- NOTE | 2021-10-13 12:45 | NUR.NOTE ---
Nursing Note: At 09:30 a.m. #16 nasogastric tube is placed and puts out 2000ml of coffee ground colored fluid. Abdomen as a result is not nearly as distended as it was at change of shift.
--- NOTE | 2021-10-13 12:47 | NUR.NOTE ---
At 11:15 a.m. patient is taken to radiology for CT scan of abdomen.Nursing Note:
--- NOTE | 2021-10-13 12:47 | NUR.NOTE ---
At noon time patient returns from radiology. Patient tolerated CT scan well.Nursing Note:
--- NOTE | 2021-10-13 12:50 | NUR.NOTE ---
Patient had 2000ml of coffee ground colored fluid from nasogastric tube upon placement of same this a.m. Patient is much more comfortable.Nursing Note:
[2021-10-13] MEDS: Lidocaine 2% Jelly 6 ML SYR (12:54)
[2021-10-13] MEDS: dilTIAZem 125 MG in Normal Saline 100 ML 10 MG IV (13:14)
--- NOTE | 2021-10-13 14:01 | PCNE_ITS ---
Date of service: 10/13/21 Time of Service: 14:13 History of Present Illness Narrative: Cristóbal is an 86 year old who is currently being treated for MSSA bacteremia of unknown origin, possibly r/t right hand abscess vs urinary source vs other. He has also been found to have a bowel obstruction. Discussed possibility that he will be here on swb for several weeks for Abx. He does not think this will be the case. Discussed the possibility that he may require surgery for bowel obstruction if it does not resolve. He states he cannot think about it as a possibility, he will address it if the situation arises. Discussed CODE status, he states he has AD and whatever he put on the form is what he wants. Discussed that sometimes people change how they feel depending on the situation/in time. He states, he does not want to talk about it again. AD reviewed after visit. He is a DNI, he wants CPR. He named his son, Ulises to be his health care agent. He lives alone, had a fall at home and was found down. He has family visiting from out of state until tomorrow. He is not very interested in continuing the conversation. Assessment and Plan Assessment and plan (1) Staphylococcus aureus bacteremia: Status: Acute (2) Hydronephrosis: Status: Acute (3) Cellulitis and abscess of hand: Status: Acute (4) SBO (small bowel obstruction): Status: Acute (5) Upper GI bleeding: Status: Acute (6) Atrial fibrillation with rapid ventricular response: Status: Acute (7) Rhabdomyolysis: Status: Acute (8) Acute UTI: Status: Acute (9) Goals of care, counseling/discussion: Status: Acute Assessment and plan: Cristóbal is an 86 year old who is currently being treated for MSSA bacteremia of unknown origin, possibly r/t right hand abscess vs urinary source vs other. He has also been found to have a bowel obstruction. Discussed possibility that he will be here on swb for several weeks for Abx. He does not think this will be the case. Discussed the possibility that he may require surgery for bowel obstruction if it does not resolve. He states he cannot think about it as a possibility, he will address it if the situation arises. Discussed CODE status, he states he has AD and whatever he put on the form is what he wants. Discussed that sometimes people change how they feel depending on the situation/in time. He states, he does not want to talk about it again. AD reviewed after visit. He is a DNI, he wants CPR. He named his son, Ulises to be his health care agent. Palliative will f/u while inpatient. Review of Systems Narrative: Provided limited information. PFSH All Active Problems (Updated 10/13/21 @ 15:59 by Brandy Garner NP) Goals of care, counseling/discussion (Acute) Hydronephrosis (Acute) Cellulitis and abscess of hand (Acute) Atelectasis (Acute) Ascites (Acute) Hypoalbuminemia (Acute) Leukocytosis (Acute) Transaminitis (Acute) SBO (small bowel obstruction) (Acute) Anemia due to acute blood loss (Acute) Upper GI bleeding (Acute) Discharge planning issues (Acute) Sepsis (Acute) DVT prophylaxis (Acute) Staphylococcus aureus bacteremia (Acute) Atrial fibrillation with rapid ventricular response (Acute) Elevated troponin I level (Acute) Rhabdomyolysis (Acute) Dehydration (Acute) Acute UTI (Acute) Snoring (Chronic) 01/2018: declines Sleep Medicine eval; 06/2019: continues to decline 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) Heel pain, chronic (Chronic) Paresthesia of hand (Chronic 01/25/14) L>>R, nocturnal, ?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 (also h/o laceration L thumb); 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 No problems noted. 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 tow motor driver: No Working smoke detector in home: Yes Carbon monox detector in home: Yes Do you feel safe at home: Yes Do you feel safe in your relationship?: Yes Exam Narrative Exam Narrative: General: Elderly man, appears younger than stated age, appears agitated by visit/questions. HEENT: normocephalic, atraumatic, NG tube in place with dark brown drainage. MM dry. Neck: supple. Respiratory: respirations appear even and unlabored, does not appear to be in respiratory distress. GI: abd appears distended Extremities: moves all 4 extremities freely. Results Last Vital Signs Temp 36.4 C L 10/13/21 12:58 Pulse 82 10/13/21 13:00 Resp 23 10/13/21 13:01 BP 116/53 L 10/13/21 13:00 Pulse Ox 94 10/13/21 13:01 Labs Result diagrams: 10/13/21 12:04 10/13/21 05:25 Labs: Laboratory Results - last 24 hr 10/13/21 10/13/21 10/13/21 05:25 05:25 05:25 WBC 17.30 H RBC 3.33 L Hgb 10.7 L Hct 31.3 L MCV 94 MCH 32.1 MCHC 34.2 RDW 13.9 Plt Count 269 MPV 10.7 Immature Gran % 0.0 Neutrophils % 80.0 Band Neutrophils % 4 Lymphocytes % 8.0 Monocytes % 5.0 Eosinophils % 1.0 Basophils % 0.0 Metamyelocytes % 2 Nucleated RBC % 0.0 Absolute Neutrophils 14.53 H Absolute Lymphocytes 1.38 Absolute Monocytes 0.87 H Absolute Eosinophils 0.17 Absolute Basophils 0.00 RBC Morphology Normal VBG Lactate Sodium 137 Potassium 3.8 Chloride 103 Carbon Dioxide 24.6 Anion Gap 9.4 BUN 36 H Creatinine 0.9 Estimated GFR/1.73 m2 >= 60.00 Glucose 154 H Calcium 8.2 L Magnesium 2.0 Total Bilirubin 0.7 Conjugated Bilirubin 0.4 H AST 145 H ALT 219 H Alkaline Phosphatase 98 Creatine Kinase 545 H C-Reactive Protein 21.49 H Total Protein 5.7 L Albumin 1.9 L 10/13/21 10/13/21 08:52 12:04 WBC RBC Hgb 9.3 L Hct 26.2 L MCV MCH MCHC RDW Plt Count MPV Immature Gran % Neutrophils % Band Neutrophils % Lymphocytes % Monocytes % Eosinophils % Basophils % Metamyelocytes % Nucleated RBC % Absolute Neutrophils Absolute Lymphocytes Absolute Monocytes Absolute Eosinophils Absolute Basophils RBC Morphology VBG Lactate 1.7 H Sodium Potassium Chloride Carbon Dioxide Anion Gap BUN Creatinine Estimated GFR/1.73 m2 Glucose Calcium Magnesium Total Bilirubin Conjugated Bilirubin AST ALT Alkaline Phosphatase Creatine Kinase C-Reactive Protein Total Protein Albumin
[2021-10-13 14:50] LABS: PTH-Related Peptide <0.4 pmol/L (< or = 4.2)
--- NOTE | 2021-10-13 14:56 | PT.INNT ---
Date of service: 10/13/21 Time of Service: 14:56 PT Notes Visit Reasons: Rhabdo,Fall 10/13/2021 Initially, patient declined PT services this morning due to not feeling well and several episodes of vomiting. Per MD, will hold PT interventions until patient stabilizes medically. Will touch base with nursing tomorrow morning to determine whether patient is appropriate and ready to participate in PT tomorrow.
[2021-10-13] MEDS: Metoprolol 5 MG/5 ML VIAL IVP ×2 (15:07→20:18)
[2021-10-13 15:35] LABS: Lab Add On Test DONE
--- NOTE | 2021-10-13 16:20 | NUR.NOTE ---
Patient is drawn for type and screen and crossmatchNursing Note: .
--- NOTE | 2021-10-13 16:30 | DI.RAD_ITS ---
Exam(s) XR ABDOMEN FLAT PLATE EXAM: XR ABDOMEN FLAT PLATE CLINICAL HISTORY: Placement of NG tube. TECHNIQUE: 2D digital imaging was performed. COMPARISON: CT CT ABDOMEN PELVIS W from 10/13/2021 CR XR ABDOMEN FLAT PLATE from 10/13/2021 FINDINGS: Single view. There is an NG tube which appears to be in satisfactory position along the greater curvature of the s tomach. The stomach appears decompressed. Air is seen in the transverse colon and: Flexures bilater ally. Calcified tortuous splenic artery in the left upper quadrant is again noted. There is some co ntrast seen in the left renal pelvis subsequent to CT scan performed with intravenous contrast yester day. IMPRESSION: NG tube in satisfactory position in the stomach and the stomach is significantly decompressed when co mpared to yesterday's images. Also no grossly dilated small bowel loops at this time although please note that this is a supine image. Nevertheless, there is some air seen within the colon. Recommend follow-up upright images. DATA REPOSITORY: RADIATION DOSE DELIVERED:
--- NOTE | 2021-10-13 16:39 | NUR.NOTE ---
Patient puts out 800ml of coffee ground fluid from nasogastric tube.
--- NOTE | 2021-10-13 16:50 | NUR.NOTE ---
Pharmacist will check with Dr. Sheehan regarding Human Prothrombin order concerning the necessity of same.Nursing Note:
--- NOTE | 2021-10-13 17:35 | DI.VRAD_ITS ---
PROCEDURE INFORMATION: Exam: XR Abdomen Exam date and time: 10/13/2021 4:50 PM Age: 86 years old Clinical indication: Other: Placement of ng tube TECHNIQUE: Imaging protocol: Radiologic exam of the abdomen. Views: Frontal supine view of the abdomen. 1 View. COMPARISON: CT ABDOMEN PELVIS W 10/13/2021 11:33 AM FINDINGS: Tubes, catheters and devices: Enteric tube tip overlies the right margin of the L1-L2 disc space, likely in region of distal gastric body with proximal port several cm from GE junction. Gastrointestinal tract: Bowel loops are air-filled and slightly distended. Organs: The IV contrast within bilateral intrarenal collecting systems. Bones/joints: Degenerative change of the spine. IMPRESSION: Enteric tube tip overlies the right margin of the L1-L2 disc space, likely in region of distal gastric body with proximal port several cm from GE junction. Advise advancing. Dictated and Authenticated by: Brina Aly MD. Ordering:CLEVELAND Harris MD
--- NOTE | 2021-10-13 18:00 | NUR.NOTE ---
RN speaks to pharmacist to get correct dosing for Human Prothrombin complex. Pharmacist indicates medication should be given at 600ml/hr. Pump will only allow 500ml/hr and thus, same is commenced at said dose.Nursing Note:
[2021-10-13] MEDS: Acetaminophen 325 MG TAB 650 MG PO (18:17)
[2021-10-13] MEDS: diphenhydrAMINE 25 MG CAP PO (18:18)
--- NOTE | 2021-10-13 18:49 | NUR.NOTE ---
First and only unit of packed red blood cells commences infusion. Cathie Gallego RN is second nurse to check blood and patient at bedside.Nursing Note:
--- NOTE | 2021-10-13 22:10 | NUR.NOTE ---
Nursing Note: 19:30-Informed lab staff Ashok to hold H/H lab draw as pt is transfusing with Blood product at this time, will inform lab later for next draw. 22:00- Infomred lab staff Ashok, to draw H/H at 22:30.
[2021-10-13 22:54] LABS: HCT 28.2 % (40.0-50.0); HGB 9.6 g/dL (13.5-17.5)
[2021-10-14] VITALS (13 sets, daily range): BP systolic 102–145; BP diastolic 46–79; PULSE 83–121; RESP 14–23; TEMP 36.5–37; O2SAT 95–99
--- NOTE | 2021-10-14 | DI.RAD_ITS ---
Exam(s) XR ABDOMEN FLAT PLATE EXAM: XR ABDOMEN FLAT PLATE CLINICAL HISTORY: follow up SBO. TECHNIQUE: 2D digital imaging was performed. COMPARISON: CT CT ABDOMEN PELVIS W from 10/13/2021 CR,XR XR ABDOMEN FLAT PLATE from 10/13/2021 FINDINGS: Single AP portable supine view of the abdomen, compared to 10/13/2021. NG tube remains in satisfactory position along greater curvature of the stomach. Bowel gas pattern i s nonspecific. No grossly distended bowel loops evident realizing that there is no upright nor decub itus view. Therefore also cannot assess for free air. Recommend follow-up upright images when clini amber possible IMPRESSION: DATA REPOSITORY: RADIATION DOSE DELIVERED:
[2021-10-14] MEDS: ceFAZolin 2 GM/50 ML BAG IVPB ×2 (00:08→09:15)
[2021-10-14] MEDS: Sucralfate 1 GM TAB PO ×2 (02:26→09:43)
[2021-10-14] MEDS: Metoprolol 5 MG/5 ML VIAL IVP ×2 (02:27→09:22)
[2021-10-14] MEDS: dilTIAZem 125 MG in Normal Saline 100 ML IV (05:53)
[2021-10-14 06:20] LABS: HCT 29.3 % (40.0-50.0); MCH 31.8 pg (27.0-33.0); MCHC 34.1 % (32.0-36.0); MCV 93 fL (80-95); MPV 10.8 fL (8.0-11.0); RBC 3.14 10^6/uL (4.36-5.78); RDW 15.7 % (11.8-14.1); RDW-SD 53.5 fL; WBC 21.81 10^3/uL (4.4-10.8)
[2021-10-14 06:56] LABS: ALT 116 U/L (16-63); AST 58 U/L (15-37); Albumin 1.9 g/dL (3.4-5.0); Alkaline Phosphatase 90 U/L (46-116); BUN 39 mg/dL (7-18); Bilirubin, Direct 0.2 mg/dL (0.0-0.2); Bilirubin, Total 0.6 mg/dL (0.2-1.0); C-Reactive Protein 21.37 mg/dL (0.0-0.3); CREATININE 0.9 mg/dL (0.70-1.30); Calcium 8.2 mg/dL (8.5-10.1); Chloride 108 mmol/L (98-107); Creatine Kinase 211 U/L (39-308); Glucose 94 mg/dL (74-106); Magnesium 2.3 mg/dL (1.8-2.4); Potassium 3.8 mmol/L (3.5-5.1); Sodium 143 mmol/L (136-145); Total Protein 5.7 g/dL (6.4-8.2)
[2021-10-14 07:13] LABS: Absolute Basophil Count 0.22 10^3/uL (0.0-0.2); Absolute Eosinophil Count 0.44 10^3/uL (0.0-0.7); Absolute Lymphocyte Count 2.62 10^3/uL (1.2-3.4); Absolute Monocyte Count 1.74 10^3/uL (0.1-0.8); Absolute Neutrophil Count 16.79 10^3/uL (1.2-6.7); Atypical Lymphocytes % 1; Diff Comment Manual Differential; Platelet Count 316 10^3/uL (130-400); Polychromasia Present
[2021-10-14 07:14] LABS: Procalcitonin 0.6 ng/mL
--- NOTE | 2021-10-14 08:52 | PGE_ITS ---
Date of Service Date of service: 10/14/21 Time of Service: 08:53 Objective Last Vital Signs Temp 36.5 C 10/14/21 08:50 Pulse 113 H 10/14/21 08:50 Resp 21 10/14/21 08:50 BP 137/59 L 10/14/21 08:50 Pulse Ox 97 10/14/21 08:50 Laboratory Results - last 24 hr 10/10/21 10/12/21 10/13/21 08:30 05:25 08:52 WBC RBC Hgb Hct MCV MCH MCHC RDW Plt Count MPV Immature Gran % Neutrophils % Lymphocytes % Atypical Lymphs % Monocytes % Eosinophils % Basophils % Nucleated RBC % Absolute Neutrophils Absolute Lymphocytes Absolute Monocytes Absolute Eosinophils Absolute Basophils RBC Morphology Polychromasia VBG Lactate 1.7 H Sodium Potassium Chloride Carbon Dioxide Anion Gap BUN Creatinine Estimated GFR/1.73 m2 Glucose Calcium Magnesium Total Bilirubin Conjugated Bilirubin AST ALT Alkaline Phosphatase Creatine Kinase C-Reactive Protein Total Protein Albumin Procalcitonin PTH Related Peptide <0.4 Add-On Test Request DONE Patient ABO/Rh Antibody Screen Crossmatch 10/13/21 10/13/21 10/13/21 12:04 16:02 22:48 WBC RBC Hgb 9.3 L 9.6 L Hct 26.2 L 28.2 L MCV MCH MCHC RDW Plt Count MPV Immature Gran % Neutrophils % Lymphocytes % Atypical Lymphs % Monocytes % Eosinophils % Basophils % Nucleated RBC % Absolute Neutrophils Absolute Lymphocytes Absolute Monocytes Absolute Eosinophils Absolute Basophils RBC Morphology Polychromasia VBG Lactate Sodium Potassium Chloride Carbon Dioxide Anion Gap BUN Creatinine Estimated GFR/1.73 m2 Glucose Calcium Magnesium Total Bilirubin Conjugated Bilirubin AST ALT Alkaline Phosphatase Creatine Kinase C-Reactive Protein Total Protein Albumin Procalcitonin PTH Related Peptide Add-On Test Request Patient ABO/Rh AB Positive Antibody Screen NEGATIVE Crossmatch See Detail 10/14/21 10/14/21 10/14/21 05:28 05:28 05:28 WBC 21.81 H RBC 3.14 L Hgb 10.0 L Hct 29.3 L MCV 93 MCH 31.8 MCHC 34.1 RDW 15.7 H Plt Count 316 MPV 10.8 Immature Gran % See Differential Neutrophils % 77.0 Lymphocytes % 11.0 Atypical Lymphs % 1 Monocytes % 8.0 Eosinophils % 2.0 Basophils % 1.0 Nucleated RBC % 0.0 Absolute Neutrophils 16.79 H Absolute Lymphocytes 2.62 Absolute Monocytes 1.74 H Absolute Eosinophils 0.44 Absolute Basophils 0.22 H RBC Morphology See Below Polychromasia Present VBG Lactate Sodium 143 Potassium 3.8 Chloride 108 H Carbon Dioxide 28.0 Anion Gap 7.0 BUN 39 H Creatinine 0.9 Estimated GFR/1.73 m2 >= 60.00 Glucose 94 Calcium 8.2 L Magnesium 2.3 Total Bilirubin 0.6 Conjugated Bilirubin 0.2 AST 58 H ALT 116 H Alkaline Phosphatase 90 Creatine Kinase 211 C-Reactive Protein 21.37 H Total Protein 5.7 L Albumin 1.9 L Procalcitonin 0.6 PTH Related Peptide Add-On Test Request Patient ABO/Rh Antibody Screen Crossmatch 10/14/21 05:28 WBC RBC Hgb Cancelled Hct Cancelled MCV MCH MCHC RDW Plt Count MPV Immature Gran % Neutrophils % Lymphocytes % Atypical Lymphs % Monocytes % Eosinophils % Basophils % Nucleated RBC % Absolute Neutrophils Absolute Lymphocytes Absolute Monocytes Absolute Eosinophils Absolute Basophils RBC Morphology Polychromasia VBG Lactate Sodium Potassium Chloride Carbon Dioxide Anion Gap BUN Creatinine Estimated GFR/1.73 m2 Glucose Calcium Magnesium Total Bilirubin Conjugated Bilirubin AST ALT Alkaline Phosphatase Creatine Kinase C-Reactive Protein Total Protein Albumin Procalcitonin PTH Related Peptide Add-On Test Request Patient ABO/Rh Antibody Screen Crossmatch PAWSS Have you Been Recently Intoxicated or Drunk Within the Last 30 days?: No Have you Ever Experienced Previous Episodes of Alcohol Withdrawal?: Yes Have you ever Experienced Withdrawal Seizures?: No Have you ever Experienced Delirium Tremens(DT)s?: No Have you ever undergone Alcohol Rehabilitation Treatment (i.e, inpt ot outpatient treatment programs)?: Unable to Obtain Have you ever Experienced Blackouts?: Unable to Obtain Have you ever Combined Alcohol with other Downers within the last 90 days?: No Have you ever Combined Alcohol with any other Substance of Abuse during the last 90 days?: No Positive Blood Alcohol level on Presentation? [PCS.BAL]: No Evidence of Increased Autonomic Activity (i.e. HR>120, tremor, sweating, agitation, nausea)?: No Result: 1 Multi-Disciplinary Checklist Lines/Tubes CENTRAL LINE: no ARTERIAL LINE: no [place]: yes, [place] Day#: 1 Note: put in on 10/13/21 ENDOTRACHEAL TUBE: no ICU Maintenance GLUCOSE 140-180mg/dL: no, Reason/Intervention: Not diabetic, NPO. NUTRITION AT GOAL: no, Reason/Intervention: NPO - GI bleeding, SBO PRESSURE ULCER: no RESTRAINTS: no ANTIBIOTICS(if yes, consider Stewardship): Yes Social Issues FAMILY UPDATED: yes PT/OT: yes GOALS/DISPOSITION/ACADEMIC PROGRAM SPECIALIST: yes CODE STATUS: Full (DNI, but not DNR) Prophylaxis DVT PROPHYLAXIS: yes GI PROPHYLAXIS: yes, Indication: Having GI bleeding
[2021-10-14] MEDS: Lactated Ringers 1,000 ML 1000 ML IV (09:00)
--- NOTE | 2021-10-14 09:11 | NUR.NOTE ---
Flat abdominal series is performed.Nursing Note:
--- NOTE | 2021-10-14 09:20 | PGE_ITS ---
Date of Service Date of service: 10/14/21 Time of Service: 09:21 Assessment and Plan Assessment and plan (1) Upper GI bleeding: Status: Acute Assessment and plan: -NG tube in place now with dark bilious -Transfuse to maintain Hb >7 -Q6hr Hb/Hct -BID IV Protonix -Reversal with Kcentra yesterday as no other agent available -Hold all anticoagulation -Possible ulcer or mass vs variceal bleed given significant drinking history as well as diet. Stabilized this AM, melena likely residual from bleeding event yesterday with ~4L output. -MICU consulted at [facility] for GI service given potential need for therapeutic intervention during EGD especially given significant bleeding yesterday. He will require general anesthesia and remains high risk to be done here. (2) Anemia due to acute blood loss: Status: Acute (3) SBO (small bowel obstruction): Status: Acute Subjective Subjective Patient reports: no new complaints, feels better and bowel movement (melena); denies nausea or vomiting Exam Const General: cooperative, comfortable and no acute distress Nutritional Appearance: average body habitus Resp Effort & Inspection: normal respiratory effort and able to speak in complete sentences Cardio Rate: tachycardic Rhythm: abnormal rhythm irregularly irregular GI Inspection: normal to inspection and non-distended Palpation: soft, no guarding and nontender Skin Trauma: abrasion (chin) Neuro General: patient alert, patient awake and patient oriented x3 Objective Last Vital Signs Temp 97.7 F 10/14/21 08:50 Pulse 113 H 10/14/21 08:50 Resp 21 10/14/21 08:50 BP 137/59 L 10/14/21 08:50 Pulse Ox 97 10/14/21 08:50 Laboratory Results - last 24 hr 10/10/21 10/12/21 10/13/21 08:30 05:25 12:04 WBC RBC Hgb 9.3 L Hct 26.2 L MCV MCH MCHC RDW Plt Count MPV Immature Gran % Neutrophils % Lymphocytes % Atypical Lymphs % Monocytes % Eosinophils % Basophils % Nucleated RBC % Absolute Neutrophils Absolute Lymphocytes Absolute Monocytes Absolute Eosinophils Absolute Basophils RBC Morphology Polychromasia Sodium Potassium Chloride Carbon Dioxide Anion Gap BUN Creatinine Estimated GFR/1.73 m2 Glucose Calcium Magnesium Total Bilirubin Conjugated Bilirubin AST ALT Alkaline Phosphatase Creatine Kinase C-Reactive Protein Total Protein Albumin Procalcitonin PTH Related Peptide <0.4 Add-On Test Request DONE Patient ABO/Rh Antibody Screen Crossmatch 10/13/21 10/13/21 10/14/21 16:02 22:48 05:28 WBC RBC Hgb 9.6 L Hct 28.2 L MCV MCH MCHC RDW Plt Count MPV Immature Gran % Neutrophils % Lymphocytes % Atypical Lymphs % Monocytes % Eosinophils % Basophils % Nucleated RBC % Absolute Neutrophils Absolute Lymphocytes Absolute Monocytes Absolute Eosinophils Absolute Basophils RBC Morphology Polychromasia Sodium 143 Potassium 3.8 Chloride 108 H Carbon Dioxide 28.0 Anion Gap 7.0 BUN 39 H Creatinine 0.9 Estimated GFR/1.73 m2 >= 60.00 Glucose 94 Calcium 8.2 L Magnesium 2.3 Total Bilirubin 0.6 Conjugated Bilirubin 0.2 AST 58 H ALT 116 H Alkaline Phosphatase 90 Creatine Kinase 211 C-Reactive Protein 21.37 H Total Protein 5.7 L Albumin 1.9 L Procalcitonin PTH Related Peptide Add-On Test Request Patient ABO/Rh AB Positive Antibody Screen NEGATIVE Crossmatch See Detail 10/14/21 10/14/21 10/14/21 05:28 05:28 05:28 WBC 21.81 H RBC 3.14 L Hgb 10.0 L Cancelled Hct 29.3 L Cancelled MCV 93 MCH 31.8 MCHC 34.1 RDW 15.7 H Plt Count 316 MPV 10.8 Immature Gran % See Differential Neutrophils % 77.0 Lymphocytes % 11.0 Atypical Lymphs % 1 Monocytes % 8.0 Eosinophils % 2.0 Basophils % 1.0 Nucleated RBC % 0.0 Absolute Neutrophils 16.79 H Absolute Lymphocytes 2.62 Absolute Monocytes 1.74 H Absolute Eosinophils 0.44 Absolute Basophils 0.22 H RBC Morphology See Below Polychromasia Present Sodium Potassium Chloride Carbon Dioxide Anion Gap BUN Creatinine Estimated GFR/1.73 m2 Glucose Calcium Magnesium Total Bilirubin Conjugated Bilirubin AST ALT Alkaline Phosphatase Creatine Kinase C-Reactive Protein Total Protein Albumin Procalcitonin 0.6 PTH Related Peptide Add-On Test Request Patient ABO/Rh Antibody Screen Crossmatch PAWSS Have you Been Recently Intoxicated or Drunk Within the Last 30 days?: No Have you Ever Experienced Previous Episodes of Alcohol Withdrawal?: Yes Have you ever Experienced Withdrawal Seizures?: No Have you ever Experienced Delirium Tremens(DT)s?: No Have you ever undergone Alcohol Rehabilitation Treatment (i.e, inpt ot outpat ient treatment programs)?: Unable to Obtain Have you ever Experienced Blackouts?: Unable to Obtain Have you ever Combined Alcohol with other Downers within the last 90 days?: No Have you ever Combined Alcohol with any other Substance of Abuse during the last 90 days?: No Positive Blood Alcohol level on Presentation? [PCS.BAL]: No Evidence of Increased Autonomic Activity (i.e. HR>120, tremor, sweating, agitation, nausea)?: No Result: 1
[2021-10-14] MEDS: Normal Saline Flush 10 ML SYR IVP ×2 (09:29→10:26)
--- NOTE | 2021-10-14 09:35 | PT.INNT ---
PT Notes Visit Reasons: Rhabdo,Fall Pt on hold for PT as per nursing request.
[2021-10-14] MEDS: Pantoprazole 40 MG VIAL 80 MG IVP (09:42)
[2021-10-14] MEDS: Potassium Chloride 10 MEQ CAPCR 20 MEQ PO (09:43)
[2021-10-14] MEDS: Multivitamin TAB 1 TAB PO (09:44)
[2021-10-14] MEDS: Folic Acid 1 MG TAB PO (09:44)
[2021-10-14] MEDS: Thiamine 100 MG TAB PO (09:44)
--- NOTE | 2021-10-14 10:10 | W.PM.DS.N ---
Date of service: 10/14/21 Time of Service: 10:10 DS: Diagnosis Discharge Diagnosis (1) Upper GI bleeding: Status: Acute (2) Gastric ulcer: Status: Suspected (3) SBO (small bowel obstruction): Status: Acute (4) Sepsis: Status: Acute (5) Staphylococcus aureus bacteremia: Status: Acute (6) Atrial fibrillation with rapid ventricular response: Status: Acute (7) Anemia due to acute blood loss: Status: Acute (8) Rhabdomyolysis: Status: Acute (9) Hydronephrosis: Status: Acute (10) Cellulitis and abscess of hand: Status: Acute Asessment and Plan: left hand (11) Transaminitis: Status: Acute Asessment and Plan: Likely related to rhabdomyolysis (12) Elevated troponin I level: Status: Acute Asessment and Plan: In setting of rhabdomyolysis, rapid Afib, sepsis. Mild global hypokinesis on echo 10/09/21. LVEF 50% (13) Dehydration: Status: Acute (14) Acute UTI: Status: Ruled-out Asessment and Plan: No leucocyte esterase or nitrite on UA 10/08/21; gram positive laine on urine C&S. (15) Essential hypertension: Status: Chronic (16) Hyperlipidemia: Status: Chronic Discharge Plan Disposition Patient Disposition: [facility] Condition: Fair Discharge Details Reason For Visit: Rhabdo,Fall Admit Date/Time: 10/09/21 11:16 Admit Provider: Ryan Moses Attending Provider: Ryan Moses Primary Care Provider: ZaheerBibi nesbitt [place] Hospital Course Hospital Course: Mr Bianchi is an 86 year old male with PMHx of hypertension, hyperlipidemia, alcohol abuse, who was found on the ground by neighbors on 10/08/21, having fallen the day before and unable to get up, evidently reporting left hip pain at the time. In the ED, he was found to be dehydrated, tachycardic (initially sinus), in rhabdomyolysis with CPK of 8469. In setting of this, he had an elevated troponin I of 823 without clear evidence of myocardial ischemia by EKG and no chest pain. He had a leucocytosis with WBC of 15.79 with no initial clear source of infection (He had a negative UA though he does have gram positive bacteriuria and a CXR). He did not sustain any fractures or significant injuries confirmed by imaging. Blood cultures were obtained. He was started on empiric ceftriaxone and IVF. 4/4 blood cultures done on admission came back positive for MSSA. No clear source for this has been identified. At this point, he was vancomycin/ceftriaxone. When speciation became available, he was switched to cefazolin 2 grams IV Q 8 hrs. Repeat blood cultures done on 10/11/21 have growth in 2/4 bottles (staph aureus). Repeat blood cultures done on 10/13/21 have NGTD. Transthoracic echo on 10/09/21 shows no vegetations. The question of the source still remains. Orthopedics were consulted re possibly aspirating his prosthetic L hip - it was felt that clinically the hip was not infected, and no arthrocenthesis was done. MRI of the hip was being planned to ensure it is not infected, but has not yet occurred. He does have a small abscess of the dorsum of R hand, which was felt to be too small to aspirate. He was evaluated by urology because of findings of a small L hydronephrosis without stones. Cystoscopy was being considered if no other source of infection became evident. He was noted to be in rapid Afib on 10/10/21 with HR in 150s-160s. He was initiated on IV lopressor (on toprol XL at home). Cardizem drip had to be added. His echocardiogram did not show any segmental wall motion abnormalities, revealing LVEF of 50%, mild global hypokinesis. The patient was started on anticoagulation with eliquis (last dose was on the morning of 10/12/21). This morning, we were also able to wean him off of cardizem drip by overlapping him with PO cardizem and metoprolol. On the night of 10/12/21 to 10/13/21, the patient devloped hematemesis. He did become tachycaric and required reinitiation of cardizem drip, but he was never hypotensive. He was on IV protonix (dose increased to 80 mg IV BID). On the morning of 10/13/21, the patient was persistently nauseated and had a distended abdomen with no bowel movements of flatus x 24 hrs. Abdominal XR and later CT abdomen/pelvis confirmed SBO. NG tube was placed, aspirating >2000 cc of coffee ground contents. CT of the abdomen does show a flush within the stomach c/w an actively bleeding ulcer. The patient had received Kcentra to reverse his eliquis and a unit of pRBCs due to active bleeding on 10/13/21. Despite this, he continues to have a large amount of coffee ground material that is being aspirated by the NGT. He did have a large melanotic stool today. His XR today shows nonobstructive bowel gas pattern. Case was reviewed with general surgery, who feel that the patient would benefit from an intervention on the suspected ulcer which we are not able to provide at our facility; the patient needs to be in a tertiary care facility with both GI and IR available. The patient was accepted at [facility] [place] by Dr Miranda of ICU (Blue Team), whose assistance is greatly appreciated. The patient is in agreement with transfer and is hemodynamically stable for transfer. There has not been any evidence of alcohol withdrawal on this admission. Total Critical Care Time spent on care of patient, coordination of care, arrangement of transfer, and documentation is 90 minutes. Please, see MAR for list of the patient's inpatient medications. The list of medications below reflects his outpatient prescriptions. Home Meds and New Rx's Prescriptions: No Action metoprolol succinate 25 mg tablet extended release 24 hr 25 mg PO DAILY Qty: 90 3RF melatonin-pyridoxine HCl (B6) 1 EACH tablet 3 mg PO HS Vitamin D3 Complete 1 EACH tablet 1 ea PO DAILY Label Comments: takes vitamin B, C, D, E ascorbic acid (vitamin C) [Vitamin C] 500 MG tablet 500 mg PO DAILY zinc 50 MG tablet 50 mg PO DAILY PRN vitamin B complex 1 EACH capsule 1 ea PO DAILY PRN Label Comments: 10/09/17 Does not take regularly. zn Rx Instructions: Takes irregularly Beet Cap 1 - 2 cap PO DAILY PRN Beet Power 2 ea PO DAILY PRN saw palmetto-pumpkin seed oil 160 MG capsule 160 mg PO DAILY Discharge Instructions Activity:: bedrest Diet:: NPO Discharge Orders Discharge Orders: Discharge Order (Routine); Ordered 10/14/21 Ordered By: Kimberly Guerra DS: Summary Time Spent with Patient providing and/or coordinating discharge services: Greater than 30 minutes Status at Discharge Functional status at discharge: bed bound Overall status at discharge: patient is not back to baseline Mental Status: mental status grossly normal Speech and Movement: speech and movement normal Mood: congruent mood Affect: normal affect Exam Narrative Exam Narrative: General: Pleasant elderly male, A&Ox3, NGT in place, looks more comfortable HEENT: EOMI, MMM, ecchymosis on chin (there yesterday as well) Heart: irregularly irregular rhythm, no m/r/g Lungs: CTAB Abdomen: Not distended Distended, no tenderness, hypoactive bowel sounds Extremities: no edema BLEs Psych Mental Status: mental status grossly normal Speech and Movement: speech and movement normal Mood: congruent mood Affect: normal affect DS: Data Vitals/I&O Vitals and I&O: Vital Signs Temperature 36.5 C 10/14/21 08:50 Temperature Source Temporal Artery Scan 10/14/21 08:50 Pulse 92 H 10/14/21 09:52 Pulse Rhythm Regular 10/10/21 07:30 Pulse 102 H 10/14/21 05:01 Respiratory Rate 21 10/14/21 08:50 Respiratory Effort 10/14/21 04:00 Respiratory Depth Normal 10/14/21 04:00 Respiratory Pattern Normal 10/14/21 04:00 Blood Pressure 102/46 L 10/14/21 09:52 Blood Pressure Mean 71 10/14/21 05:01 Blood Pressure Position Supine 10/14/21 04:00 Pulse Oximetry 97 10/14/21 08:50 Oxygen Delivery Method Room Air 10/14/21 08:50 Oxygen Flow Rate 0 10/14/21 08:50 Pain Level 0 10/14/21 08:50 Intake & Output 10/13/21 10/13/21 10/14/21 11:59 23:59 11:59 Intake Total 1452.5 / 2043.250 590.750 / 2043.250 95.667 / 95.667 Output Total 2950 / 5525 2575 / 5525 1680 / 1680 Balance -1497.5 / -3481.750 -1984.250 / -3481.750 -1584.333 / -1584.333 Weight 84.5 kg 79.4 kg Intake: IV 1452.5 / 1693.250 240.750 / 1693.250 95.667 / 95.667 Blood Product 350 / 350 Rbc Leuko Reduced Unit 350 / 350 [id number] Output: Gastric Drainage 19990 1400 / 3400 730 / 730 Left Nare 2000 / 3400 1400 / 3400 730 / 730 Urine 650 / 1825 1175 / 1825 450 / 450 Stool 500 / 500 Emesis 300 / 300 Other: Urine Color Dark Pat Dark Pat Dark Pat Urine Appearance Clear Clear Clear Urine Odor None Comment Patient has a short catheter draining dark yellow urine. Patient has a short catheter draining dark yellow urine. Patient has a short catheter draining dark yellow urine. Stool Occult Blood Positive Stool Size Copious Stool Characteristics Liquid Black Emesis Description Coffee Grounds Gastric Occult Blood Positive Left Nare Positive Positive Positive Data Completed and Pending Completed studies during hospitalization [Text1]: XR abdomen 10/14/21: No new acute findings. XR abdomen 10/13/21: Enteric tube tip overlies the right margin of the L1-L2 disc space, likely in region of distal gastric body with proximal port several cm from GE junction. Advise advancing. CT abdomen/pelvis 10/13/21: 1. Findings suggestive of a small-bowel obstruction with a transition in the region of the left abdomen. 2. Dilatation of the stomach and duodenum which likely is secondary to the small bowel obstruction.? There is debris seen within the distal stomach and duodenum but no bowel wall thickening or definite mass is identified. 3. Bilateral small pleural effusions and subjacent infiltrate which may represent atelectasis or pneumonia.? 4. Trace amount of pelvic ascites.? No pneumoperitoneum. XR abdomen flat plate 10/13/21: 1. Moderately distended stomach.? The remainder of the bowel is of normal caliber.? 2. There is a moderate amount of stool throughout the colon.? US renal 10/12/21: Question mild left hydronephrosis.? Question small right renal mass versus pyelonephritis.? CT with contrast recommended for further evaluation US RUE 10/12/21: Fluid collections at the dorsum of the hand.? XR R wrist 10/11/21: No acute fracture or dislocation in the hand or wrist. XR R hand 10/11/21: No acute fracture or dislocation in the hand or wrist. XR L hip 10/09/21: No acute fracture or dislocation.? XR R elbow 10/09/21: No acute fracture or dislocation is present.? CXR 10/08/21: No acute pulmonary findings. XR pelvis 10/08/21: No acute fracture or dislocation.? Head CT 10/08/21: No acute intracranial process.? Labs on day of discharge: Labs from last 24 hours 10/14/21 10/14/21 10/14/21 05:28 05:28 05:28 WBC 21.81 H RBC 3.14 L Hgb Cancelled 10.0 L Hct Cancelled 29.3 L MCV 93 MCH 31.8 MCHC 34.1 RDW 15.7 H Plt Count 316 MPV 10.8 Immature Gran % See Differential Neutrophils % 77.0 Lymphocytes % 11.0 Atypical Lymphs % 1 Monocytes % 8.0 Eosinophils % 2.0 Basophils % 1.0 Nucleated RBC % 0.0 Absolute Neutrophils 16.79 H Absolute Lymphocytes 2.62 Absolute Monocytes 1.74 H Absolute Eosinophils 0.44 Absolute Basophils 0.22 H RBC Morphology See Below Polychromasia Present Sodium Potassium Chloride Carbon Dioxide Anion Gap BUN Creatinine Estimated GFR/1.73 m2 Glucose Calcium Magnesium Total Bilirubin Conjugated Bilirubin AST ALT Alkaline Phosphatase Creatine Kinase C-Reactive Protein Total Protein Albumin Procalcitonin 0.6 PTH Related Peptide Add-On Test Request Patient ABO/Rh Antibody Screen Crossmatch 10/14/21 10/13/21 10/13/21 05:28 22:48 16:02 WBC RBC Hgb 9.6 L Hct 28.2 L MCV MCH MCHC RDW Plt Count MPV Immature Gran % Neutrophils % Lymphocytes % Atypical Lymphs % Monocytes % Eosinophils % Basophils % Nucleated RBC % Absolute Neutrophils Absolute Lymphocytes Absolute Monocytes Absolute Eosinophils Absolute Basophils RBC Morphology Polychromasia Sodium 143 Potassium 3.8 Chloride 108 H Carbon Dioxide 28.0 Anion Gap 7.0 BUN 39 H Creatinine 0.9 Estimated GFR/1.73 m2 >= 60.00 Glucose 94 Calcium 8.2 L Magnesium 2.3 Total Bilirubin 0.6 Conjugated Bilirubin 0.2 AST 58 H ALT 116 H Alkaline Phosphatase 90 Creatine Kinase 211 C-Reactive Protein 21.37 H Total Protein 5.7 L Albumin 1.9 L Procalcitonin PTH Related Peptide Add-On Test Request Patient ABO/Rh AB Positive Antibody Screen NEGATIVE Crossmatch See Detail 10/13/21 10/12/21 10/10/21 12:04 05:25 08:30 WBC RBC Hgb 9.3 L Hct 26.2 L MCV MCH MCHC RDW Plt Count MPV Immature Gran % Neutrophils % Lymphocytes % Atypical Lymphs % Monocytes % Eosinophils % Basophils % Nucleated RBC % Absolute Neutrophils Absolute Lymphocytes Absolute Monocytes Absolute Eosinophils Absolute Basophils RBC Morphology Polychromasia Sodium Potassium Chloride Carbon Dioxide Anion Gap BUN Creatinine Estimated GFR/1.73 m2 Glucose Calcium Magnesium Total Bilirubin Conjugated Bilirubin AST ALT Alkaline Phosphatase Creatine Kinase C-Reactive Protein Total Protein Albumin Procalcitonin PTH Related Peptide <0.4 Add-On Test Request DONE Patient ABO/Rh Antibody Screen Crossmatch Preliminary micro results at discharge 10/13/21 06:36 Blood Culture - Preliminary Blood NO GROWTH 24 HOURS 10/13/21 05:25 Blood Culture - Preliminary Blood NO GROWTH 24 HOURS 10/11/21 05:17 Blood Culture - Preliminary Blood Staphylococcus Aureus 10/11/21 05:17 Blood Culture - Preliminary Blood Gram Positive Cocci PFSH All Active Problems (Updated 10/14/21 @ 10:18 by Kimberly Guerra MD) Small bowel obstruction (Acute) Goals of care, counseling/discussion (Acute) Hydronephrosis (Acute) Cellulitis and abscess of hand (Acute) Atelectasis (Acute) Ascites (Acute) Hypoalbuminemia (Acute) Leukocytosis (Acute) Transaminitis (Acute) SBO (small bowel obstruction) (Acute) Anemia due to acute blood loss (Acute) Upper GI bleeding (Acute) Discharge planning issues (Acute) Sepsis (Acute) DVT prophylaxis (Acute) Staphylococcus aureus bacteremia (Acute) Atrial fibrillation with rapid ventricular response (Acute) Elevated troponin I level (Acute) Rhabdomyolysis (Acute) Dehydration (Acute) Snoring (Chronic) 01/2018: declines Sleep Medicine eval; 06/2019: continues to decline 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) Heel pain, chronic (Chronic) Paresthesia of hand (Chronic 01/25/14) L>>R, nocturnal, ?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 (also h/o laceration L thumb); 03/2014: CTS L>R (h/o nerve condution [place] 1999); 11/2015 no worse, 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 No problems noted. 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 tow bar driver: No Working smoke detector in home: Yes Carbon monox detector in home: Yes Do you feel safe at home: Yes Do you feel safe in your relationship?: Yes
[2021-10-14 10:11] LABS: 1,25-Dihydroxyvitamin D 43 pg/mL (18-64)
--- NOTE | 2021-10-14 10:21 | NUR.NOTE ---
Son and daughter in law visit patient.Nursing Note:
--- NOTE | 2021-10-14 10:29 | DI.VRAD_ITS ---
PROCEDURE INFORMATION: Exam: XR Abdomen Exam date and time: 10/14/2021 8:52 AM Age: 86 years old Clinical indication: Condition or disease; Other: Sbo TECHNIQUE: Imaging protocol: Radiologic exam of the abdomen. Views: Frontal supine view of the abdomen. 1 View. COMPARISON: XR ABDOMEN FLAT PLATE 10/13/2021 4:50 PM FINDINGS: Tubes, catheters and devices: esophagogastric tube terminates over an expected location of the gastric lumen. Lungs: unremarkable lung bases. Gastrointestinal tract: nonobstructive bowel gas pattern. Vasculature: vascular calcifications. Bones/joints: Partially imaged left hip hardware. no acute displaced fracture. osteopenia. bony degenerative changes. IMPRESSION: No new acute findings. Dictated and Authenticated by: Roberto Gabriel MD. Ordering:CLEVELAND Harris MD
--- NOTE | 2021-10-14 11:15 | NUR.NOTE ---
Report given to [facility] ambulance crew. All paperwork is complete and given to ambulance crew Patient is stable on 10mg/hr Diltiazem. Vital signs are stable and patient is in good spirits.Nursing Note:
--- NOTE | 2021-10-14 11:30 | NUR.NOTE ---
RN gives report to [facility] RN, namely Mendel Bhagat. Patient leaves ICU with [facility] ambulance crew.Nursing Note:
--- NOTE | 2021-10-16 11:31 | PT.INDS ---
PT Notes Visit Reasons: Rhabdo,Fall Treatment Dates: 10/09/2021 - 10/14/21 Referring Doctor: Ryan Moses MD PT Orders: PT CONSULT: Limited ability Precautions: Fall precautions This document serves as a summary of care. No PT services were provided on this date. Patient Profile/Admitting Diagnosis: 86-year-old male admitted with rhabdomyolysis, dehydration and a UTI. He participated in 5 sessions of skilled PT intervention over the course of 5 days, then was transferred to [facility] for ongoing medical care. Subjective: None obtained, as patient transferred to [facility] [facility] 10/14/21. Objective: ROM: Right Upper Extremity: He has difficulty actively lifting his right arm overhead, and active assistively is shoulder flexion is approximately 115 degrees bilaterally. His rotation is approximately 60 degrees. He has hypomobility with the MP and IP joints of his fingers making it difficult to make a fist. He also has some mild flexion contractures. Detailed measurements were not taken. His right elbow motion actively is approximately -30-120 degrees with endrange discomfort throughout the elbow region. His forearm supination pronation are hypomobile but nonpainful, and his wrist flexion extension is not much more than 30 degrees. Bilateral hip motion is nonirritable with some mild hypomobility within an articular pattern of his right hip. Bilateral knee motion is 0 to 130 degrees, and he has mild hypomobility with the tibiotalar and subtalar joints. Strength: His strength is generally rated 4/5 throughout, although his right infraspinatus is 1/5 Neuro: Reflexes symmetrical, sensations intact light touch BED MOBILITY/TRANSFERS? Supine-sit: SBA with HOB flat Sit-stand: Min A from elevated bed surface ? Stand-sit: CGA with cueing for safety ? GAIT? Assistive Device: FWW? Weight bearing: Full Assist: SBA? Distance:? up to 300' ? Deviation: Fatigue, standing rests due to R hip pain STAIRS: Up/down 3x4 and 2x6 using B rails and a step-to pattern with CGA? ?? Balance: Static Sitting: Good Dynamic Sitting: Good Static Standing: Good Dynamic Standing: Fair Special Tests: Mobility Limitations Standardized Measure [facility] AM-PAC 6 clicks Basic Mobility Inpatient Short Form: Raw Score: 20 CMS Score: 36% Assessment: Patient is a 86year old male referred to physical therapy services with the diagnosis of rhabdomyolysis, UTI, dehydration. He participated in 5 PT sessions during his course of care, and demonstrated fluctuating mobility during that time. He has been transferred to [facility] for ongoing medical care, and will benefit from PT intervention in that setting for progress toward established goals. Goals: Goals X1 week 1. Supine-Sit independent (progressing toward) 2. Sit-Supine independent (progressing toward) 3. Sit-Stand independent (progressing toward) 4. Stand-Sit independent (progressing toward) 5. Bed-Chair independent (progressing toward) 6. Chair-Bed independent (progressing toward) 7. Gait independent with a FWW for greater than 100 feet (progressing toward) 8. Stairs ascension/descend 5 steps (progressing toward) Plan of Care/Treatment Plan: D/C from PT services at this facility. Recommend further PT services at [facility] [place] for continued gains in mobility. DISCHARGE RECOMMENDATIONS: D/C to [facility] for ongoing medical care TREATMENT CODE/TIME: none Tanisha Reed, PT, DPT [facility]
== END 2021-10-14 11:34 | disposition short-term general hospital (02) | DRG 871 ==
LOC: ER 10-09 01:03 → ICU 10-09 01:56
PROVIDERS: Internal Medicine; Student in an Organized Health Care Education/Training Program; Admitting Provider General Practice; Emergency Provider Emergency Medicine; PCP Nurse Practitioner Family; Visit Provider General Practice
DX: A41.01 Sepsis due to Methicillin susceptible Staphylococcus aureus (principal); K25.4 Chronic or unspecified gastric ulcer with hemorrhage; M62.82 Rhabdomyolysis; I24.8 Other forms of acute ischemic heart disease; K92.0 Hematemesis; D62 Acute posthemorrhagic anemia; K56.609 Unspecified intestinal obstruction, unspecified as to partial versus complete obstruction; J98.11 Atelectasis; L03.113 Cellulitis of right upper limb; R18.8 Other ascites; N13.30 Unspecified hydronephrosis; E86.0 Dehydration; R74.8 Abnormal levels of other serum enzymes; I48.91 Unspecified atrial fibrillation; S00.81XA Abrasion of other part of head, initial encounter; W19.XXXA Unspecified fall, initial encounter; R06.83 Snoring; E78.5 Hyperlipidemia, unspecified; I10 Essential (primary) hypertension; Z96.642 Presence of left artificial hip joint; Z87.891 Personal history of nicotine dependence; E87.6 Hypokalemia; G47.33 Obstructive sleep apnea (adult) (pediatric); M79.89 Other specified soft tissue disorders; R74.01 Elevation of levels of liver transaminase levels; E88.09 Other disorders of plasma-protein metabolism, not elsewhere classified; R33.9 Retention of urine, unspecified; F10.20 Alcohol dependence, uncomplicated; R26.89 Other abnormalities of gait and mobility
CPT/HCPCS: 36415; 36416; 36430; 76770; 76881; 80048; 80053; 80076; 80307; 82306; 82550; 82805; 82962; 83690; 84145; 85027; 86850; 86900; 86901; 86920; 87040; 87077; 87637; 93005; 93306; 96361; 96365; 97110; 97162; 97166; 97530; 99222; 99223; 99233; 99285; J1650; 70450; 71045; 72170; 73080; 73110; 73130; 73501; 74018; 74177; 80202; 80320; 81003; 81015; 82397; 82565; 82652; 83605; 83735; 83970; 84100; 84105; 84443; 84450; 84460; 84484; 85014; 85018; 85025; 85610; 85730; 86140; 87086; 87186; 93010; 99291; 99292; G0378; J0690; J0696; J2405; J3490; P9016

== ENCOUNTER 2023-03-13 16:14 | Emergency (ER) | payer MEDICARE, SELFPAY ==
[2023-03-13] VITALS (14 sets, daily range): BP systolic 205–224; BP diastolic 79–95; PULSE 105–125; RESP 12–38; TEMP 37.4; O2SAT 94–99
--- NOTE | 2023-03-13 16:15 | DI.RAD_ITS ---
Exam(s) XR FEMUR LT EXAM: XR FEMUR LT CLINICAL HISTORY: LEFT LEG PAIN. TECHNIQUE: 2D digital imaging was performed of the left femur. Four images were obtained. AP and lat eral views were obtained. COMPARISON: CR XR HIP LT 1V from 10/09/2021 FINDINGS: BONES: No acute fracture is present. No bony destructive lesion is seen. There again seen findings of a left total hip replacement. No suspicious lucencies are seen in or about the orthopedic hardware to suggest loosening. SOFT TISSUE: Vascular calcifications are present. IMPRESSION: No acute fracture or dislocation. DATA REPOSITORY: RADIATION DOSE DELIVERED:
--- NOTE | 2023-03-13 16:20 | DI.RAD_ITS ---
Exam(s) XR CHEST 1V IN DI DEPT EXAM: XR CHEST 1V IN DI DEPT CLINICAL HISTORY: [place] TECHNIQUE: 2D digital imaging was performed of the chest. One image was obtained. An AP view was ob tained. COMPARISON: CR,XR XR CHEST 1V IN DI DEPT from 10/08/2021 FINDINGS: MEDIASTINUM: Normal. HEART: Normal. PULMONARY VASCULATURE: Normal. LUNGS: Clear. PLEURAL SPACE: No pleural effusion or pneumothorax. BONE:Within normal limits for the patient's age. OTHER FINDINGS:Normal. IMPRESSION: No acute pulmonary findings. DATA REPOSITORY: RADIATION DOSE DELIVERED:
[2023-03-13 16:32] LABS: Abs Immature Grans 0.05 10^3/uL (0.0-0.06); Absolute Basophil Count 0.04 10^3/uL (0.0-0.2); Absolute Eosinophil Count 0.11 10^3/uL (0.0-0.7); Absolute Lymphocyte Count 1.46 10^3/uL (1.2-3.4); Absolute Neutrophil Count 10.62 10^3/uL (1.2-6.7); Basophils % 0.3; Eosinophils % 0.8; HCT 41.6 % (40.0-50.0); HGB 13.3 g/dL (13.5-17.5); Immature Grans % 0.4; MCH 26.8 pg (27.0-33.0); MCV 84 fL (80-95); MPV 10.2 fL (8.0-11.0); Monocytes % 7.5; Platelet Count 267 10^3/uL (130-400); RBC 4.97 10^6/uL (4.36-5.78); RDW 16.2 % (11.8-14.1); RDW-SD 49.3 fL; WBC 13.27 10^3/uL (4.4-10.8)
[2023-03-13 16:51] LABS: ALT 39 U/L (16-63); AST 30 U/L (15-37); Alkaline Phosphatase 71 U/L (46-116); Anion Gap 15.4 mmol/L (3-11); BUN 24 mg/dL (7-18); Bilirubin, Total 0.5 mg/dL (0.2-1.0); CO2 21.6 mmol/L (21.0-32.0); CREATININE 1.3 mg/dL (0.70-1.30); Calcium 9.5 mg/dL (8.5-10.1); Chloride 106 mmol/L (98-107); Glucose 109 mg/dL (74-106); Magnesium 2.1 mg/dL (1.8-2.4); Potassium 3.5 mmol/L (3.5-5.1); Sodium 143 mmol/L (136-145); Total Protein 7.8 g/dL (6.4-8.2)
[2023-03-13 16:59] LABS: NT-proBNP 614 pg/mL (<300); Troponin I 60 ng/L (<or=60)
--- NOTE | 2023-03-13 17:30 | RT.EKG_ITS ---
APPROVED REPORT Exam: Resting ECG Reason for Exam: WEAKNESS Patient Location: E HR:107 bpm ECG Measurements Heart Rate 107 AXIS NC 170 P 26 QRSd 76 QRS 4 QT 342 T 13 QTc 457 Conclusion Sinus tachycardia [address] depressions
--- NOTE | 2023-03-13 17:49 | ED.GENADUL_ITS ---
Discharge Plan Disposition Patient Disposition: Home Discharge Details Clinical Impression: Hypertension, Fall, R[place] (dyspnea on exertion), Elevated brain natriuretic peptide (BNP) level Primary Care Provider: Bibi Schwab ED Provider: Vicky Baldwin Home Meds and New Rx's Prescriptions: Continued melatonin-pyridoxine HCl (B6) 1 EACH tablet 3 mg PO HS Vitamin D3 Complete 1 EACH tablet 1 ea PO DAILY Patient Comments: takes vitamin B, C, D, E ascorbic acid (vitamin C) [Vitamin C] 500 MG tablet 500 mg PO DAILY zinc 50 MG tablet 50 mg PO DAILY PRN vitamin B complex 1 EACH capsule 1 ea PO DAILY PRN Patient Comments: 10/09/17 Does not take regularly. zn Rx Instructions: Takes irregularly Beet Cap 1 - 2 cap PO DAILY PRN Beet Power 2 ea PO DAILY PRN saw palmetto-pumpkin seed oil 160 MG capsule 160 mg PO DAILY metoprolol succinate 25 mg tablet extended release 24 hr 25 mg PO DAILY Qty: 90 3RF Discharge Instructions Instructions: Hypertension (ED) Additional Instructions: PLEASE START TAKING YOUR BLOOD PRESSURE MEDICATION PRESCRIBED SCHEDULE FOLLOW UP APPOINTMENT WITH CARDIOLOGY Referrals: Lyssa Montaño MD [ [facility] STAFF PHYSICIAN] - Discharge Data Discharge Date/Time-TO BE ENTERED AT DEPARTURE: 03/13/23 18:39 Medical Decision Making Emergent evaluation of weakness and fall. Initial differential includes ACS, CHF, hypertensive emergency. Have a lower suspicion for any acute traumatic injuries given his exam. The patient is noted to be hypertensive on evaluation. He reports that he is not taking his blood pressure medication anymore, he just takes vitamins. He states that he is otherwise healthy and has been feeling fine. It is noted that when he was moving around the room he seems to get a little short of breath though he denies that he feels short of breath. Initial plan for cardiac monitoring, lab work and x-ray to evaluate for acute cardiopulmonary etiology of the symptoms. 1750: I reviewed the patient's blood work. He has a mild leukocytosis, no significant anemia. His creatinine is within normal limits but slightly above baseline. His BNP is slightly elevated there are no priors for comparison. His chest x-ray shows some mild cardiomegaly without pleural effusion or signs of pulmonary edema. I discussed findings with the patient. He states that he does not want to be admitted to the hospital. He would like to go home. I discussed the importance of taking his blood pressure medication and that he is already starting to show signs of issues related to longstanding hypertension. He reports that he will start taking his blood pressure medication if he can go home. I have referred him to cardiology as I feel like he needs an echo and reevaluation of his blood pressure and likely this starting on medication for diuresis. Patient was offered hospitalization for the symptoms, but again requested discharge. Return precautions advised. Medical Records Medical records reviewed: Yes I reviewed the patient's medical records. Lab Data Lab results reviewed: Yes I reviewed the patient's lab results. ECG Data Attestation: I personally reviewed and interpreted this ECG (s) as follows: Prior ECG tracings: available for review Interpretation: Sinus tachycardia 107, normal axis, no acute ischemic ST segment changes. HPI General Date/Time Provider Initiated Documentation: 03/13/23 16:20 . Limitations to Documentation: no limitations . Information obtained by: patient . HPI Narrative: 87-year-old gentleman with past medical history of SBO, CAD, hypertension presents for evaluation of weakness. He reports that he was out walking to his deer stand when he started to feel weak and he states that his knees gave out and he fell to the ground. He was not having any chest pain or shortness of breath. He reports that he started to have a little bit of pain in his left thigh. But otherwise he was able to get up and bear weight and walk. He reports that he has not been taking any medication for the last year and a half Related Data Home Medications Medication Instructions Recorded Confirmed melatonin-pyridoxine HCl (vitamin 3 mg PO HS 07/27/14 03/13/23 B6) 3 mg-10 mg tablet multivit with 1 ea PO DAILY 06/17/15 03/13/23 [id number] 18 mg iron-800 mcg-150 mg tablet (Vitamin D3 Complete) Beet Cap 1 - 2 cap PO DAILY PRN 06/19/17 03/13/23 Beet Power 2 ea PO DAILY PRN 06/19/17 03/13/23 ascorbic acid (vitamin C) 500 mg 500 mg PO DAILY 06/19/17 03/13/23 tablet (Vitamin C) vitamin B complex 1 ea PO DAILY PRN 06/19/17 03/13/23 zinc 50 mg tablet 50 mg PO DAILY PRN 06/19/17 03/13/23 saw palmetto-pumpkin seed oil 160 160 mg PO DAILY 07/11/17 03/13/23 mg capsule metoprolol succinate 25 mg 25 mg PO DAILY #90 tab-caps 03/13/23 tablet,extended release 24 hr Previous Rx's Medication Instructions Recorded metoprolol succinate 25 mg 25 mg PO DAILY #90 tab-caps 03/13/23 tablet,extended release 24 hr Allergies Allergy/AdvReac Type Severity Reaction Status Date / Time hydrochlorothiazide AdvReac Intermediate urinary Unverified 03/13/23 16:22 frequency, leg cramps CATS Allergy Severe BREATHING, Uncoded 03/13/23 16:22 SNEEZING, BURNING EYES General Stated Complaint: Fall/Non TraumaCriteria ROM: 3 PFSH All Active Problems Elevated brain natriuretic peptide (BNP) level (Acute) R[place] (dyspnea on exertion) (Acute) Fall (Acute) Hypertension (Chronic) Small bowel obstruction (Acute) Goals of care, counseling/discussion (Acute) Hydronephrosis (Acute) Cellulitis and abscess of hand (Acute) Atelectasis (Acute) Ascites (Acute) Hypoalbuminemia (Acute) Leukocytosis (Acute) Transaminitis (Acute) SBO (small bowel obstruction) (Acute) Anemia due to acute blood loss (Acute) Upper GI bleeding (Acute) Sepsis (Acute) Staphylococcus aureus bacteremia (Acute) Atrial fibrillation with rapid ventricular response (Acute) Elevated troponin I level (Acute) Rhabdomyolysis (Acute) Dehydration (Acute) Snoring (Chronic) 01/2018: declines Sleep Medicine eval; 06/2019: continues to decline 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) Heel pain, chronic (Chronic) Paresthesia of hand (Chronic 01/25/14) L>>R, nocturnal, ?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 (also h/o laceration L thumb); 03/2014: 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 No problems noted. 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 + Hypertensive Peripheral pulses 2+ and equal in all extremities Brisk capillary refill in all extremities. No peripheral edema RESP: Unlabored respiratory effort, Clear to auscultation bilaterally No wheezes rales or rhonchi GI: Soft, Nontender, Nondistended, No organomegaly MSK: Extremities with full range of motion, no deformity or TTP SKIN: Warm, Dry. Contact dermatitis noted on abdomen NEURO: No focal neurologic deficits. Course Vital Signs Vital signs: Vital Signs Temperature 37.4 C 03/13/23 16:13 Pulse 125 H 03/13/23 16:13 Respiratory Rate 24 03/13/23 16:13 Blood Pressure 224/79 H 03/13/23 16:13 Temperature 37.4 C 03/13/23 16:13 Temperature Source Temporal Artery Scan 03/13/23 16:13 Pulse 105 H 03/13/23 17:30 Pulse Rhythm Regular 03/13/23 17:13 Pulse Strength Normal 03/13/23 17:13 Pulse 107 H 03/13/23 17:31 Respiratory Rate 12 03/13/23 17:31 Respiratory Effort Normal, Short of Breath 03/13/23 17:13 Respiratory Depth Normal 03/13/23 17:13 Respiratory Pattern Normal 03/13/23 17:13 Blood Pressure 205/89 H 03/13/23 17:30 Blood Pressure Mean 133 03/13/23 17:30 Blood Pressure Position Supine 03/13/23 16:13 Pulse Oximetry 96 03/13/23 17:31 Oxygen Delivery Method Room Air 03/13/23 17:13 Oxygen Flow Rate 0 03/13/23 17:13 Pain Level 3 03/13/23 17:13 Comment left knee 03/13/23 16:13 Lab/Test Results Lab/Test Results: Laboratory Tests Range/Units 03/13/23 16:26 WBC (4.4-10.8) 10^3/uL 13.27 H RBC (4.36-5.78) 10^6/uL 4.97 Hgb (13.5-17.5) g/dL 13.3 L Hct (40.0-50.0) % 41.6 MCV (80-95) fL 84 MCH (27.0-33.0) pg 26.8 L MCHC (32.0-36.0) % 32.0 RDW (11.8-14.1) % 16.2 H Plt Count (130-400) 10^3/uL 267 MPV (8.0-11.0) fL 10.2 Immature Gran % 0.4 Neutrophils % 80.0 Lymphocytes % 11.0 Monocytes % 7.5 Eosinophils % 0.8 Basophils % 0.3 Nucleated RBC % (0.0-0.3) % 0.0 Absolute Neutrophils (1.2-6.7) 10^3/uL 10.62 H Absolute Lymphocytes (1.2-3.4) 10^3/uL 1.46 Absolute Monocytes (0.1-0.8) 10^3/uL 1.00 H Absolute Eosinophils (0.0-0.7) 10^3/uL 0.11 Absolute Basophils (0.0-0.2) 10^3/uL 0.04 Sodium (136-145) mmol/L 143 Potassium (3.5-5.1) mmol/L 3.5 Chloride (98-107) mmol/L 106 Carbon Dioxide (21.0-32.0) mmol/L 21.6 Anion Gap (3-11) mmol/L 15.4 H BUN (7-18) mg/dL 24 H Creatinine (0.70-1.30) mg/dL 1.3 Est GFR (CKD-EPI 2020) (mL/min/1.73m2) 53.50 Glucose (74-106) mg/dL 109 H Calcium (8.5-10.1) mg/dL 9.5 Magnesium (1.8-2.4) mg/dL 2.1 Total Bilirubin (0.2-1.0) mg/dL 0.5 AST (15-37) U/L 30 ALT (16-63) U/L 39 Alkaline Phosphatase (46-116) U/L 71 Troponin I (<or=60) ng/L 60 NT-Pro-B Natriuret Pep (<300) pg/mL 614 H Total Protein (6.4-8.2) g/dL 7.8 Albumin (3.4-5.0) g/dL 4.0
[2023-03-13] MEDS: Metoprolol 25 MG TAB PO (17:53)
--- NOTE | 2023-03-13 18:06 | NUR.NOTE ---
Nursing Note:PT needs follow up next week with [facility] cardiology for uncontrolled hypertension & new heart failure. Kaycee, ED
== END 2023-03-13 18:39 | disposition home or self-care (01) ==
LOC: ER 18:33
PROVIDERS: Emergency Provider Emergency Medicine; PCP Nurse Practitioner Family
DX: R53.1 Weakness (principal); R00.1 Bradycardia, unspecified; R06.09 Other forms of dyspnea; I51.7 Cardiomegaly; R79.89 Other specified abnormal findings of blood chemistry; I10 Essential (primary) hypertension; Z96.642 Presence of left artificial hip joint; W18.39XA Other fall on same level, initial encounter; Y93.01 Activity, walking, marching and hiking; Y92.838 Other recreation area as the place of occurrence of the external cause
CPT/HCPCS: 73552; 80053; 93005; 99283; 71045; 83735; 83880; 84484; 85025; 93010

== ENCOUNTER 2023-09-22 08:38 | Emergency (ER) | payer MEDICARE, SELFPAY ==
[2023-09-22 08:44] VITALS: BP 234/91; PULSE 108; RESP 16; TEMP 37.1; O2SAT 97
--- NOTE | 2023-09-22 09:01 | ED.GENADUL_ITS ---
Discharge Plan Disposition Patient Disposition: Home Condition: Stable Discharge Details Clinical Impression: Elevated blood pressure reading, Essential hypertension, Bilateral impacted cerumen Primary Care Provider: Bibi Schwab ED Provider: Alfreda Jacobo Home Meds and New Rx's Prescriptions: Continued melatonin-pyridoxine HCl (B6) 1 EACH tablet 3 mg PO HS Vitamin D3 Complete 1 EACH tablet 1 ea PO DAILY Patient Comments: takes vitamin B, C, D, E ascorbic acid (vitamin C) [Vitamin C] 500 MG tablet 500 mg PO DAILY zinc 50 MG tablet 50 mg PO DAILY PRN vitamin B complex 1 EACH capsule 1 ea PO DAILY PRN Patient Comments: 10/09/17 Does not take regularly. zn Rx Instructions: Takes irregularly Beet Cap 1 - 2 cap PO DAILY PRN Beet Power 2 ea PO DAILY PRN saw palmetto-pumpkin seed oil 160 MG capsule 160 mg PO DAILY metoprolol succinate 25 mg tablet extended release 24 hr 25 mg PO DAILY Qty: 90 3RF Discharge Instructions Additional Instructions: Please call [facility] internal medicine to schedule follow-up appointment with primary care to have your blood pressure reevaluated. I recommend that you take your metoprolol as prescribed. A refill has been sent to the pharmacy for you. Your first dose was given here in the emergency department today. Your blood pressure was noted to be very elevated today. This puts you at high risk for negative health events such as stroke, heart attack, kidney damage, and other organ damage. It is very important that you take the metoprolol as prescribed and follow-up with primary care for management of your blood pressure and A-fib. I recommend that you make an eye doctor appointment for regular monitoring of the condition of your eyes, especially with your elevated BP. Please do not stick any Q-tips or other materials in your ear. I recommend that you use [id number]-[id number] Debrox drops as needed to help soften earwax. Return to emergency care if you develop new pain in your ear, drainage, fever/chills, headache, chest pain, shortness of breath, or if you are very worried and need to be rechecked again immediately. Referrals: [facility] Internal Medicine [Provider Group] HPI General Date/Time Provider Initiated Documentation: 09/22/23 08:39 . HPI Narrative: Cristóbal is an 88-year-old male with history of hypertension and A-fib who is currently not on any medication to presents to the emergency department today for evaluation of clogged ears. He reports that it has been ongoing on and off for a while, usually improves if he shakes his head around. He was mowing the lawn yesterday, noticed hearing loss in his L ear with crackling in the ear when he opens his mouth. Denies fever/chills or recent illness. In triage he was noted to have very elevated blood pressure, says that he has not interested in taking any medications, only wants to take supplements to help control his blood pressure. He denies associated headache, dizziness, chest pain, shortness of breath, change in bowel or bladder function. Related Data Home Medications Medication Instructions Recorded Confirmed melatonin-pyridoxine HCl (vitamin 3 mg PO HS 07/27/14 09/22/23 B6) 3 mg-10 mg tablet multivit with 1 ea PO DAILY 06/17/15 09/22/23 [id number] 18 mg iron-800 mcg-150 mg tablet (Vitamin D3 Complete) Beet Cap 1 - 2 cap PO DAILY PRN 06/19/17 09/22/23 Beet Power 2 ea PO DAILY PRN 06/19/17 09/22/23 ascorbic acid (vitamin C) 500 mg 500 mg PO DAILY 06/19/17 09/22/23 tablet (Vitamin C) vitamin B complex 1 ea PO DAILY PRN 06/19/17 09/22/23 zinc 50 mg tablet 50 mg PO DAILY PRN 06/19/17 09/22/23 saw palmetto-pumpkin seed oil 160 160 mg PO DAILY 07/11/17 09/22/23 mg capsule metoprolol succinate 25 mg 25 mg PO DAILY #90 tab-caps 09/22/23 tablet,extended release 24 hr Previous Rx's Medication Instructions Recorded metoprolol succinate 25 mg 25 mg PO DAILY #90 tab-caps 09/22/23 tablet,extended release 24 hr Allergies Allergy/AdvReac Type Severity Reaction Status Date / Time hydrochlorothiazide AdvReac Intermediate urinary Unverified 09/22/23 08:42 frequency, leg cramps CATS Allergy Severe BREATHING, Uncoded 09/22/23 08:42 SNEEZING, BURNING EYES General Stated Complaint: EarProblem ROM: 4 Review of Systems Narrative: see HPI Exam Const General: cooperative, healthy appearing, comfortable, no acute distress, well developed and well groomed [facility] Head: normal to inspection Ears: EAC abnormal (abrasion noted in L auditory canal) cerumen impaction bilaterally, hearing grossly impaired (L ear) and normal mastoids bilaterally General nose exam: external nose normal Face and sinus: normal facial exam Mouth: oral mucosae normal Neck Neck: normal visual inspection and full ROM Resp Effort & Inspection: normal respiratory effort and able to speak in complete sentences Course Vital Signs Vital signs: Vital Signs Temperature 37.1 C 09/22/23 08:44 Pulse 108 H 09/22/23 08:44 Respiratory Rate 16 09/22/23 08:44 Blood Pressure 234/91 H 09/22/23 08:44 Pulse Oximetry 97 09/22/23 08:44 Temperature 37.1 C 09/22/23 08:44 Temperature Source Temporal Artery Scan 09/22/23 08:44 Pulse 108 H 09/22/23 08:44 Respiratory Rate 16 09/22/23 08:44 Respiratory Effort Normal, Non-Labored 09/22/23 08:46 Blood Pressure 234/91 H 09/22/23 08:44 Blood Pressure Position Sitting 09/22/23 08:44 Pulse Oximetry 97 09/22/23 08:44 Oxygen Delivery Method Room Air 09/22/23 08:44 Oxygen Flow Rate 0 09/22/23 08:44 Pain Level 0 09/22/23 08:44 Medical Decision Making Cristóbal is an 88-year-old male with history of hypertension and A-fib who is currently not on any medication to presents to the emergency department today for evaluation of clogged ears. He reports that it has been ongoing on and off for a while, usually improves if he shakes his head around. He was mowing the lawn yesterday, noticed hearing loss in his L ear with crackling in the ear when he opens his mouth. Denies fever/chills or recent illness. In triage he was noted to have very elevated blood pressure, says that he has not interested in taking any medications, only wants to take supplements to help control his blood pressure. He denies associated headache, dizziness, chest pain, shortness of breath, change in bowel or bladder function. Physical exam remarkable for bilateral cerumen impaction. Small abrasion noted to the inside of the left auditory canal, no active bleeding or drainage. Full painless range of motion to neck. Moist mucous membranes, no trismus. History and presentation consistent with bilateral cerumen impaction. Ears were able to be successfully disimpacted using irrigation. TMs pearly escobar, translucent. No complications due to irrigation. Vital signs very concerning for untreated hypertension, this was noted on previous ED visit on 03/13/2023, he was advised to continue taking his blood pressure medication and was referred to cardiology for further evaluation. It does not appear that he had this follow-up appointment. I discussed this extensively with patient, he is agreeable to restarting metoprolol which she has tolerated previously. First dose given in the emergency department. Advise close follow-up with [facility] internal medicine for reevaluation and management of blood pressure. Quality:SDOH Health Related Social Needs: No Data to Display PFSH All Active Problems (Updated 09/22/23 @ 09:02 by Alfreda Mcguire) Bilateral impacted cerumen (Acute) Elevated blood pressure reading (Acute) Small bowel obstruction (Acute) Goals of care, counseling/discussion (Acute) Hydronephrosis (Acute) Cellulitis and abscess of hand (Acute) Atelectasis (Acute) Ascites (Acute) Hypoalbuminemia (Acute) Leukocytosis (Acute) Transaminitis (Acute) SBO (small bowel obstruction) (Acute) Anemia due to acute blood loss (Acute) Upper GI bleeding (Acute) Sepsis (Acute) Staphylococcus aureus bacteremia (Acute) Atrial fibrillation with rapid ventricular response (Acute) Elevated troponin I level (Acute) Rhabdomyolysis (Acute) Dehydration (Acute) Snoring (Chronic) 01/2018: declines Sleep Medicine eval; 06/2019: continues to decline 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) Heel pain, chronic (Chronic) Paresthesia of hand (Chronic 01/25/14) L>>R, nocturnal, ?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 (also h/o laceration L thumb); 03/2014: CTS L>R (h/o nerve condution [place] 1999); 11/2015 no worse, 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 No problems noted. 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
--- NOTE | 2023-09-22 09:16 | NUR.NOTE ---
Faxed to PCP for management of HTN, for DEANDRE. Nursing Note:
[2023-09-22] MEDS: Metoprolol CR 25 MG TABCR PO (10:12)
[2023-09-22 10:20] VITALS: BP 229/95; PULSE 77; RESP 15; TEMP 36.9; O2SAT 96
== END 2023-09-22 10:22 | disposition home or self-care (01) ==
PROVIDERS: Emergency Provider Nurse Practitioner Family; PCP Nurse Practitioner Family
DX: I10 Essential (primary) hypertension; I48.91 Unspecified atrial fibrillation; Z91.148 Patient's other noncompliance with medication regimen for other reason; Z87.891 Personal history of nicotine dependence; H61.23 Impacted cerumen, bilateral
CPT/HCPCS: 69209; 99283

== ENCOUNTER 2023-10-02 09:33 | Outpatient (CLI) | payer MEDICARE, SELFPAY ==
[2023-10-02 09:13] LABS: Abs Immature Grans 0.06 10^3/uL (0.0-0.06); Absolute Basophil Count 0.04 10^3/uL (0.0-0.2); Absolute Eosinophil Count 0.51 10^3/uL (0.0-0.7); Absolute Lymphocyte Count 1.76 10^3/uL (1.2-3.4); Absolute Monocyte Count 1.17 10^3/uL (0.1-0.8); Absolute Neutrophil Count 5.88 10^3/uL (1.2-6.7); Basophils % 0.4 %; Eosinophils % 5.4 %; HCT 45.9 % (40.0-50.0); HGB 14.9 g/dL (13.5-17.5); Immature Grans % 0.6 %; Lymphocytes % 18.7 %; MCH 28.1 pg (27.0-33.0); MCHC 32.5 % (32.0-36.0); MCV 86 fL (80-95); MPV 10.4 fL (8.0-11.0); Monocytes % 12.4 %; Neutrophils % 62.5 %; Platelet Count 232 10^3/uL (130-400); RBC 5.31 10^6/uL (4.36-5.78); RDW 16.4 % (11.8-14.1); RDW-SD 52.3 fL; WBC 9.42 10^3/uL (4.4-10.8)
[2023-10-02 09:46] LABS: NT-proBNP 330 pg/mL (<300)
[2023-10-02 09:53] LABS: ALT 48 U/L (16-63); AST 28 U/L (15-37); Alkaline Phosphatase 73 U/L (46-116); Anion Gap 8.5 mmol/L (3-11); BUN 18 mg/dL (7-18); Bilirubin, Total 0.7 mg/dL (0.2-1.0); CO2 27.5 mmol/L (21.0-32.0); Calcium 9.7 mg/dL (8.5-10.1); Calculated LDL 156 mg/dL (<100); Chloride 104 mmol/L (98-107); Cholesterol 251 mg/dL (<200); Estimated GFR 72.84 (mL/min/1.73m2); Glucose 89 mg/dL (74-106); HDL Cholesterol 52 mg/dL (40-60); Potassium 4.2 mmol/L (3.5-5.1); Sodium 140 mmol/L (136-145); TSH 2.38 uIU/Ml (0.36-3.74); Total Protein 7.7 g/dL (6.4-8.2); Triglyceride 218 mg/dL (<150)
== END 2023-10-02 09:34 | disposition home or self-care (01) ==
LOC: LBO 09:37
PROVIDERS: PCP Family Medicine; Visit Provider Emergency Medicine
DX: I10 Essential (primary) hypertension (principal); I50.9 Heart failure, unspecified
CPT/HCPCS: 36415; 80053; 80061; 83880; 84443; 85025

== ENCOUNTER 2025-02-01 08:48 | Emergency (ER) | payer MEDICARE, SELFPAY ==
[2025-02-01 08:48] VITALS: BP 233/83; PULSE 96; RESP 15; TEMP 36.7; O2SAT 97
[2025-02-01 08:55] VITALS: BP 133/83; PULSE 96; RESP 15; TEMP 36.7; O2SAT 97
--- NOTE | 2025-02-01 09:16 | ED.GENADUL_ITS ---
Discharge Plan Disposition Patient Disposition: Home Condition: Stable Discharge Details Clinical Impression: Cerumen impaction Primary Care Provider: Luisa Lu ED Provider: Antonina Michael Home Meds and New Rx's Prescriptions: Continued fluconazole 150 mg tablet 150 mg PO QWEEK Qty: 4 0RF terbinafine HCl 1 % cream 1 applic topical DAILY Qty: 30 2RF Rx Instructions: apply to itchy rash every morning for 1 month melatonin-pyridoxine HCl (B6) 1 EACH tablet 3 mg PO HS Vitamin D3 Complete 1 EACH tablet 1 ea PO DAILY Patient Comments: takes vitamin B, C, D, E ascorbic acid (vitamin C) [Vitamin C] 500 MG tablet 500 mg PO DAILY zinc 50 MG tablet 50 mg PO DAILY PRN vitamin B complex 1 EACH capsule 1 ea PO DAILY PRN Patient Comments: 10/09/17 Does not take regularly. 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 HPI Narrative: This 89-year-old male presents with difficulty hearing from his right ear. Thinks he has wax buildup. Denies any headache or dizziness denies chest pain or shortness of breath. Attempted to irrigate ear without success at home. Related Data Home Medications ?Medication ?Instructions ?Recorded ?Confirmed melatonin-pyridoxine HCl (vitamin 3 mg PO HS 07/27/14 02/01/25 B6) 3 mg-10 mg tablet multivit with 1 ea PO DAILY 06/17/1502/01 [id number] 18 mg iron-800 mcg-150 mg tablet (Vitamin D3 Complete) Beet Cap 1 - 2 cap PO DAILY PRN 06/1902/01/25 Beet Power 2 ea PO DAILY PRN 06/19/17 1 ascorbic acid (vitamin C) 500 mg 500 mg PO DAILY 06/1902/01/25 tablet (Vitamin C) vitamin B complex 1 ea PO DAILY PRN 06/19/17 1 zinc 50 mg tablet 50 mg PO DAILY PRN 06/19/17 02/01/25 saw palmetto-pumpkin seed oil 160 160 mg PO DAILY 06/2102/01/25 mg capsule fluconazole 150 mg tablet 150 mg PO QWEEK #4 tabs 12/2102/01/25 terbinafine HCl 1 % topical cream 1 applic topical GEOVANY LY rash #30 02/14/24 02/01/25 grams Previous Rx's ?Medication ?Instructions ?Recorded fluconazole 150 mg tablet 150 mg PO QWEEK #4 tabs 12/21 12/13 terbinafine HCl 1 % topical cream 1 applic topical GEOVANY LY rash #30 02/14/24 grams Allergies Allergy/AdvReac Type Severity Reaction Status Date / Time hydrochlorothiazide AdvReac Intermediate urinary Unverified 02/01/25 08:56 frequency, leg cramps losartan AdvReac Intermediate Other (See Verified 02/01/25 08:56 Comment) CATS Allergy Severe BREATHING, Uncoded 02/01/25 08:56 SNEEZING, BURNING EYES General Stated Complaint: EarProblem ROM: 4 Exam Narrative Exam Narrative: 81-year-old male no acute distress serum impaction right ear cardiac rate rhythm regular ear clear no mastoid, alert and oriented x 4 ambulatory with steady gait Course Vital Signs Vital signs: Vital Signs Temperature 36.7 C 02/01/25 08:48 Pulse 96 H 02/01/25 08:48 Respiratory Rate 15 02/01/25 08:48 Blood Pressure 233/83 H 02/01/25 08:48 Pulse Oximetry 97 02/01/25 08:48 Temperature 36.7 C 02/01/25 08:55 Temperature Source Oral 02/01/25 08:55 Pulse 96 H 02/01/25 08:55 Respiratory Rate 15 02/01/25 08:55 Blood Pressure 133/83 02/01/25 08:55 Blood Pressure Position Sitting 02/01/25 08:55 Pulse Oximetry 97 02/01/25 08:55 Oxygen Delivery Method Room Air 02/01/25 08:55 Oxygen Flow Rate 0 02/01/25 08:55 Pain Level 0 02/01/25 09:01 Medical Decision Making Procedure: Cerumen was irrigated from right ear with Colace and ear irrigation tubing with success. 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 Referral to ENT was placed. Patient does not have a PCP, he was encouraged to establish care with a PCP in the outpatient setting [facility] All Active Problems (Updated 02/01/25 @ 10:29 by KRYSTEN Lopez) Cerumen impaction (Acute) Tinea corporis (Acute) Small bowel obstruction (Acute) Goals of care, counseling/discussion (Acute) Hydronephrosis (Acute) Atelectasis (Acute) Ascites (Acute) Hypoalbuminemia (Acute) Leukocytosis (Acute) Transaminitis (Acute) SBO (small bowel obstruction) (Acute) Anemia due to acute blood loss (Acute) Upper GI bleeding (Acute) Staphylococcus aureus bacteremia (Acute) Atrial fibrillation with rapid ventricular response (Acute) Elevated troponin I level (Acute) Rhabdomyolysis (Acute) Dehydration (Acute) Snoring (Chronic) 01/2018: declines Sleep Medicine eval; 06/2019: continues to decline 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) Heel pain, chronic (Chronic) Paresthesia of hand (Chronic 01/25/14) L>>R, nocturnal, ?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 (also h/o laceration L thumb); 03/2014: CTS L>R (h/o nerve condution [place] 2000); 11/2015 no worse, 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 Hyperlipidemia (Chronic 10/29/14) risk calc 45.8% with BP 180 10/29/14; declines meds; Lifestyle: eats lots of fish, fruit, veg, blue berries, no sugar Essential hypertension (Chronic 03/22/14) declines ANY medications consistently Atopic dermatitis (Chronic 07/13/13) 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 No problems noted. 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
[2025-02-01] MEDS: Docusate Sodium 100 MG/10 ML CUP PO ×2 (09:45→10:11)
== END 2025-02-01 10:37 | disposition home or self-care (01) ==
PROVIDERS: Emergency Provider Physician Assistant; PCP Nurse Practitioner Family
DX: H61.21 Impacted cerumen, right ear (principal)
CPT/HCPCS: 69209

== ENCOUNTER 2025-02-17 08:39 | Observation (INO) | payer MEDICARE, SELFPAY ==
[2025-02-17] VITALS (38 sets, daily range): BP systolic 109–194; BP diastolic 64–99; PULSE 71–92; RESP 16–18; TEMP 36.4–37.2; O2SAT 92–100
--- NOTE | 2025-02-17 08:39 | W.ED.GENAD ---
Discharge Plan Disposition Patient Disposition: Admit to [facility] Discharge Details Clinical Impression: Closed fracture of greater trochanter of left femur, Lesion of skin of scalp Primary Care Provider: Luisa Lu ED Provider: Ruben Flor [place] Meds and New Rx's Prescriptions: No Action fluconazole 150 mg tablet 150 mg PO QWEEK Qty: 4 0RF terbinafine HCl 1 % cream 1 applic topical DAILY Qty: 30 2RF Rx Instructions: apply to itchy rash every morning for 1 month melatonin-pyridoxine HCl (B6) 1 EACH tablet 3 mg PO HS Vitamin D3 Complete 1 EACH tablet 1 ea PO DAILY Patient Comments: takes vitamin B, C, D, E ascorbic acid (vitamin C) [Vitamin C] 500 MG tablet 500 mg PO DAILY zinc 50 MG tablet 50 mg PO DAILY PRN vitamin B complex 1 EACH capsule 1 ea PO DAILY PRN Patient Comments: 10/09/17 Does not take regularly. zn Rx Instructions: Takes irregularly Beet Cap 1 - 2 cap PO DAILY PRN Beet Power 2 ea PO DAILY PRN saw palmetto-pumpkin seed oil 160 MG capsule 160 mg PO DAILY HPI General Date/Time Provider Initiated Documentation: 02/17/25 08:39. HPI Narrative: MDM This is an overall well-appearing 81-year-old male with concern for hip fracture. Patient not septic so I did not order blood cultures. No redness or zoster. No erythema to suggest septic joint. 11:13 AM CBC lacks anemia thrombocytopenia and leukocytosis. Chest x-ray with no obvious infiltrate. X-rays are negative. Patient had persistent pain. I ordered a CT scan of his left lower extremity. His basic metabolic panel lacked ROGELIO and had no acute electrolyte abnormalities. His left knee found no acute osseous abnormalities. 1:55 PM Patient found to have a left-sided great throcanteric fracture. I was in touch w/Dr. Huerta who advised protective WBAT w/walker. Iliana from PT evaluated the patient and advised hospitalization. I was in touch w/Dr. Mac who accepted the patient. Concerning his chronic appearing high parietal right scalp lesion I did not see any signs of cellulitis or abscess at this point in time. Given his age and the location of this lesion he will benefit from reassessment with his primary care provider. 4:58 PM I updated patient and son on plan for hospitalization. PT worked with patient in the emergency department. PT advised hospitalization. Patient has left upper extremity IV access. HPI This is an uncomfortable 89-year-old male who took a fall from bed 2 days ago with resultant left hip pain. He has had his lateral hip replacement in 2006. He has been bearing weight with a cane. He did not hit his head. He did not lose consciousness. He denies chest pain nausea vomiting abdominal pain. He reports that he has intermittently had a bleeding scab on his scalp for a number of years. Exam General: Elderly uncomfortable-appearing in no acute distress speaking in complete sentences. Head: Normocephalic. On the high right parietal scalp there is a scab. No fluctuance. No erythema. Eye: Extraocular eye movements intact. No conjunctival injection. No scleral icterus. Ear, nose, mouth, throat: Grossly normal inspection. Normal voice, handling secretions normally. Neck: Trachea midline. Cardiovascular: Well-perfused distal extremities. Regular rate and rhythm Respiratory: Nonlabored respiration. Clear lungs bilaterally Gastrointestinal: Nondistended abdomen. Soft nontender. Musculoskeletal: Left foot warm well-perfused. Patient has left-sided knee tenderness. No obvious deformities. Provocative testing deferred. No rash to the knee. Left hip with lateral tenderness radiating into the groin. Skin: Normal for age and race, grossly normal temperature and turgor. No acute rash. Neurologic: Alert and appropriate, no apparent acute deficits. GCS 15. Related Data Home Medications Medication Instructions Recorded Confirmed melatonin-pyridoxine HCl (vitamin 3 mg PO HS 07/27/14 02/17/25 B6) 3 mg-10 mg tablet multivit with 1 ea PO DAILY 06/17/15 02/17/25 [id number] 18 mg iron-800 mcg-150 mg tablet (Vitamin D3 Complete) Beet Cap 1 - 2 cap PO DAILY PRN 06/19/17 02/17/25 Beet Power 2 ea PO DAILY PRN 06/19/17 02/17/25 ascorbic acid (vitamin C) 500 mg 500 mg PO DAILY 06/19/17 02/17/25 tablet (Vitamin C) vitamin B complex 1 ea PO DAILY PRN 06/19/17 02/17/25 zinc 50 mg tablet 50 mg PO DAILY PRN 06/19/17 02/17/25 saw palmetto-pumpkin seed oil 160 160 mg PO DAILY 07/11/17 02/17/25 mg capsule fluconazole 150 mg tablet 150 mg PO QWEEK #4 tabs 01/08/24 02/17/25 terbinafine HCl 1 % topical cream 1 applic topical DAILY rash #30 02/14/24 02/17/25 grams Previous Rx's Medication Instructions Recorded fluconazole 150 mg tablet 150 mg PO QWEEK #4 tabs 01/08/24 terbinafine HCl 1 % topical cream 1 applic topical DAILY rash #30 02/14/24 grams Allergies Allergy/AdvReac Type Severity Reaction Status Date / Time hydrochlorothiazide AdvReac Intermediate urinary Unverified 02/01/25 08:56 frequency, leg cramps losartan AdvReac Intermediate Other (See Verified 02/01/25 08:56 Comment) CATS Allergy Severe BREATHING, Uncoded 02/01/25 08:56 SNEEZING, BURNING EYES General ROM: 4 PFSH All Active Problems (Updated 02/17/25 @ 12:47 by Shilo Huerta MD) Fracture of greater trochanter of left femur (Acute) Lesion of skin of scalp (Acute) Closed fracture of greater trochanter of left femur (Acute) Cerumen impaction (Acute) Tinea corporis (Acute) Small bowel obstruction (Acute) Goals of care, counseling/discussion (Acute) Hydronephrosis (Acute) Atelectasis (Acute) Ascites (Acute) Hypoalbuminemia (Acute) Leukocytosis (Acute) Transaminitis (Acute) SBO (small bowel obstruction) (Acute) Anemia due to acute blood loss (Acute) Upper GI bleeding (Acute) Staphylococcus aureus bacteremia (Acute) Atrial fibrillation with rapid ventricular response (Acute) Elevated troponin I level (Acute) Rhabdomyolysis (Acute) Dehydration (Acute) Snoring (Chronic) 01/2018: declines Sleep Medicine eval; 06/2019: continues to decline 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) Heel pain, chronic (Chronic) Paresthesia of hand (Chronic 01/25/14) L>>R, nocturnal, ?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 (also h/o laceration L thumb); 03/2014: CTS L>R (h/o nerve condution [place] 2000); 11/2015 no worse, 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 Hyperlipidemia (Chronic 10/29/14) risk calc 45.8% with BP 180 10/29/14; declines meds; Lifestyle: eats lots of fish, fruit, veg, blue berries, no sugar Essential hypertension (Chronic 03/22/14) declines ANY medications consistently Atopic dermatitis (Chronic 07/13/13) 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 No problems noted. 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
--- NOTE | 2025-02-17 08:45 | DI.RAD_ITS ---
Exam(s) XR PELVIS AP EXAM: XR PELVIS AP CLINICAL HISTORY: Fall hip pain left. TECHNIQUE: 2D digital imaging was performed. COMPARISON: CR,XR XR PELVIS AP from 10/08/2021 FINDINGS: AP view of the pelvis No evidence of pelvic nor hip fractures. Left hip prosthesis again noted. No obvious degenerative changes in the right hip. Bone density normal. No osseous lesions IMPRESSION: No significant osseous findings in the pelvis. DATA REPOSITORY: RADIATION DOSE DELIVERED:
--- NOTE | 2025-02-17 08:45 | DI.RAD_ITS ---
Exam(s) XR KNEE LT 3V AP,LAT,MAX EXAM: XR KNEE LT 3V AP,LAT,MAX CLINICAL HISTORY: Left knee pain. TECHNIQUE: 2D digital imaging was performed. COMPARISON: No exams were available for comparison FINDINGS: 3 views No evidence of acute fracture nor prominent joint effusion. Mild degenerative changes. Bone density normal. No osseous lesions. Vascular calcification noted. IMPRESSION: No acute osseous findings in the knee. DATA REPOSITORY: RADIATION DOSE DELIVERED:
--- NOTE | 2025-02-17 08:45 | DI.RAD_ITS ---
Exam(s) XR CHEST 1V IN DI DEPT EXAM: XR CHEST 1V IN DI DEPT CLINICAL HISTORY: Fall. TECHNIQUE: 2D digital imaging was performed. COMPARISON: CR XR CHEST 1V IN DI DEPT from 03/13/2023 FINDINGS: Single AP lordotic portable view. Heart size is upper normal. The mediastinum is not widened. Left lung is clear. Density in the medial right lung base is probably extension of the cardiac fat pad which is exaggerated by this dotted view. No obvious pleural effusions. No pulmonary edema. No pneumothorax. IMPRESSION: As above. Recommend nonportable PA and lateral views when clinically possible. DATA REPOSITORY: RADIATION DOSE DELIVERED:
--- NOTE | 2025-02-17 08:45 | DI.RAD_ITS ---
Exam(s) XR FEMUR LT EXAM: XR FEMUR LT CLINICAL HISTORY: Left hip pain. TECHNIQUE: 2D digital imaging was performed. COMPARISON: CR XR FEMUR LT from 03/13/2023 FINDINGS: Two views-AP and lateral Left hip prosthesis appears stable. There is slight irregularity in the greater trochanter which is probably prior fracture site at this level. This may be incompletely healed. There is no obvious loosening of the prosthesis. No findings in the femur distally. There are moderate degenerative changes in the knee. Vascular calcification of femoral artery noted IMPRESSION: Greater trochanter findings as above but relatively similar appearance to 03/13/2023. DATA REPOSITORY: RADIATION DOSE DELIVERED:
[2025-02-17 10:16] LABS: Abs Immature Grans 0.04 10^3/uL (0.0-0.06); HCT 46.0 % (40.0-50.0); HGB 15.7 g/dL (13.5-17.5); Immature Grans % 0.4 %; MCH 30.3 pg (27.0-33.0); MCHC 34.1 % (32.0-36.0); MCV 89 fL (80-95); MPV 10.4 fL (8.0-11.0); Platelet Count 205 10^3/uL (130-400); RBC 5.18 10^6/uL (4.36-5.78); RDW 13.3 % (11.8-14.1); RDW-SD 43.5 fL; WBC 10.64 10^3/uL (4.4-10.8)
[2025-02-17 10:25] LABS: Anion Gap 12.9 mmol/L (3-11); BUN 12 mg/dL (7-18); CO2 25.1 mmol/L (21.0-32.0); Calcium 9.6 mg/dL (8.5-10.1); Chloride 101 mmol/L (98-107); Glucose 89 mg/dL (74-106); Potassium 3.8 mmol/L (3.5-5.1); Sodium 139 mmol/L (136-145)
--- NOTE | 2025-02-17 10:30 | DI.CT_ITS ---
Exam(s) CT LOWER EXTREMITY LT WO EXAM: CT LOWER EXTREMITY LT WO CLINICAL HISTORY: left hip pain. TECHNIQUE: Imaging Protocol: Axial computed tomography images with coronal and sagittal reformatted images were created and reviewed. CONTRAST MATERIAL: Intravenous: None COMPARISON: CT CT ABDOMEN PELVIS W from 10/13/2021 FINDINGS: OSSEOUS: There is a transverse fracture line in the greater trochanter just above the femoral component of the prosthesis. There is no significant displacement. There is no callus formation. There are no other fractures identified. No obvious loosening of the prosthesis. Ipsilateral pubic rami are intact as is the visualized sacrum. IMPRESSION: There is a nondisplaced transverse fracture of the greater trochanter of the left hip Report called by myself to ER physician 02/17/2025 at 12:20 p.m. RADIATION DOSE DELIVERED: 305.48mGy.cm Total DLP DATA REPOSITORY: All CT scans at this facility are submitted to the National Radiology Data Registry (NRDR) Dose Index Registry (DIR) with the [employer] (ACR). RADIATION OPTIMIZATION: All CT scans at this facility use at least one of these dose optimization techniques: automated exposure control; mA and/or kV adjustment per patient size (includes targeted exams where dose is matched to clinical indication); or iterative reconstruction.
--- NOTE | 2025-02-17 12:46 | OCONE_ITS ---
Assessment and Plan Assessment and plan (1) Fracture of greater trochanter of left femur: Status: Acute Assessment and plan: 89-year-old male with left hip isolated minimally displaced fracture of the greater trochanter with a stable hip replacement Consulted by emergency room doctor. X-rays and CT scan reviewed showing some chronic abnormalities about the left hip replacement including some bony abnormalities around the greater trochanter, but the CT is consistent with an acute minimally displaced fracture, which does not involve the hip replacement. Recommend nonoperative management: For about 6-8 weeks, protected weightbearing with crutches. Avoid active abduction, avoid passive adduction past neutral. Follow-up outpatient orthopedic surgery. [facility] All Active Problems (Updated 02/17/25 @ 12:47 by Shilo Huerta MD) Fracture of greater trochanter of left femur (Acute) Lesion of skin of scalp (Acute) Closed fracture of greater trochanter of left femur (Acute) Cerumen impaction (Acute) Tinea corporis (Acute) Small bowel obstruction (Acute) Goals of care, counseling/discussion (Acute) Hydronephrosis (Acute) Atelectasis (Acute) Ascites (Acute) Hypoalbuminemia (Acute) Leukocytosis (Acute) Transaminitis (Acute) SBO (small bowel obstruction) (Acute) Anemia due to acute blood loss (Acute) Upper GI bleeding (Acute) Staphylococcus aureus bacteremia (Acute) Atrial fibrillation with rapid ventricular response (Acute) Elevated troponin I level (Acute) Rhabdomyolysis (Acute) Dehydration (Acute) Snoring (Chronic) 01/2018: declines Sleep Medicine eval; 06/2019: continues to decline 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) Heel pain, chronic (Chronic) Paresthesia of hand (Chronic 01/25/14) L>>R, nocturnal, ?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 (also h/o laceration L thumb); 03/2014: CTS L>R (h/o nerve condution [place] 1999); 11/2015 no worse, 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 Hyperlipidemia (Chronic 10/29/14) risk calc 45.8% with BP 180 10/29/14; declines meds; Lifestyle: eats lots of fish, fruit, veg, blue berries, no sugar Essential hypertension (Chronic 03/22/14) declines ANY medications consistently Atopic dermatitis (Chronic 07/13/13) 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 No problems noted. 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 Working smoke detector in home: Yes Carbon monox detector in home: Yes Do you feel safe at home: Yes Do you feel safe in your relationship?: Yes Results Last Vital Signs Temp 99.0 F 02/17/25 08:42 Pulse 82 02/17/25 10:24 Resp 16 02/17/25 10:24 BP 174/68 H 02/17/25 10:24 Pulse Ox 100 02/17/25 10:24 Labs 02/17/25 10:00 02/17/25 10:00 Labs: Laboratory Results - last 24 hr 02/17/25 10:00 WBC 10.64 RBC 5.18 Hgb 15.7 Hct 46.0 MCV 89 MCH 30.3 MCHC 34.1 RDW 13.3 Plt Count 205 MPV 10.4 Immature Gran % 0.4 Neutrophils % 73.8 Lymphocytes % 14.6 Monocytes % 10.5 Eosinophils % 0.4 Basophils % 0.3 Nucleated RBC % 0.0 Absolute Neutrophils 7.86 H Absolute Lymphocytes 1.55 Absolute Monocytes 1.12 H Absolute Eosinophils 0.04 Absolute Basophils 0.03 Sodium 139 Potassium 3.8 Chloride 101 Carbon Dioxide 25.1 Anion Gap 12.9 H BUN 12 Creatinine 1.0 Est GFR (CKD-EPI 2020) 72.39 Glucose 89 Calcium 9.6
[2025-02-17] MEDS: Acetaminophen 500 MG TAB 1000 MG PO (13:22)
[2025-02-17] MEDS: MORPHine IR 15 MG TAB PO (13:22)
--- NOTE | 2025-02-17 13:55 | IN_ITS ---
PT Notes Visit Reasons: Bjorn-Hip Pain Physical Therapy Inpatient/ Emergency Room Initial Evaluation Date: 02/17/2025 Referring Doctor: Dr Flor/ Dr Mac PT Orders: PT CONSULT: PT Evaluation and treatment Precautions: protected weight bearing as tolerated with device. Avoid active abduction, avoid passive adduction past neutral. Patient Profile/Admitting Diagnosis:Pt is an 89 yo male presented to ED s/p fall within his home. CT of left hip revealed minimally displaced fracture of Greater trochanter at prosthesis. Ortho Consult with Dr Sumner who recommended Non Surgical intervention and protected weight bearing with device. Avoid active abduction, avoid passive adduction past neutral. PT Consult placed in ED for assessment of ability to return home vs admit to hospital. PMHX: Fracture of greater trochanter of left femur (Acute) Lesion of skin of scalp (Acute) Closed fracture of greater trochanter of left femur (Acute) Cerumen impaction (Acute) Tinea corporis (Acute) Small bowel obstruction (Acute) Goals of care, counseling/discussion (Acute) Hydronephrosis (Acute) Atelectasis (Acute) Ascites (Acute) Hypoalbuminemia (Acute) Leukocytosis (Acute) Transaminitis (Acute) SBO (small bowel obstruction) (Acute) Anemia due to acute blood loss (Acute) Upper GI bleeding (Acute) Staphylococcus aureus bacteremia (Acute) Atrial fibrillation with rapid ventricular response (Acute) Elevated troponin I level (Acute) Rhabdomyolysis (Acute) Dehydration (Acute) Snoring (Chronic) 01/2018: declines Sleep Medicine eval; 06/2019: continues to decline 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) Heel pain, chronic (Chronic) Paresthesia of hand (Chronic 01/25/14) L>>R, nocturnal, ?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 (also h/o laceration L thumb); 03/2014: CTS L>R (h/o nerve condution [place] 1999); 11/2015 no worse, 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 Hyperlipidemia (Chronic 10/29/14) risk calc 45.8% with BP 180 10/29/14; declines meds; Lifestyle: eats lots of fish, fruit, veg, blue berries, no sugar Essential hypertension (Chronic 03/22/14) declines ANY medications consistently Atopic dermatitis (Chronic 07/13/13) 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 Pt independent ambulation and ADL care including meal prep, shopping, home management. Equipment Owned/DME: cane , walking sticks, ? FWW in his attic Subjective:Pt reports he fell during the night going to the bathroom. He was able to slide across the floor to the bathroom then get up and hobble back to bed with a cane and then called the ambulance. He asked How am I supposed to get food and get up if I go home today? He states his son lives in [place]. Objective: [] General Observation: Pt presented semireclined on stretcher catheter in place, high parietal right scalp lesion , abrasions to right [place] Mental Status: Alert and oriented to person, place situation. Pt easily distracted, able to follow instructions with cues to attend to task. Pain: left hip with ROM 4/10 with vocalization of ouch that hurts ROM: [] Right Upper Extremity: WFL Left Upper Extremity: WFL Right Lower Extremity: WFL Left Lower Extremity: hip flexion 80 degrees, abd NT d/t fracture, knee and ankle WFL Strength: [] Right Upper Extremity:5/5 Left Upper Extremity: 5/5 Right Lower Extremity: 5/5 Left Lower Extremity: hip flexion 2+/5, abduction not tested d/t fracture, extension 3-/5, knee 3/5, ankle 3/5 Sensation: intact Bed Mobility/Transfers: Supine to sit Max A of 1 min A of 1 toward left Sit to stand min A Stand to sit CGA and cues to bring LLE forward Bed to chair Min A with FWW Gait: amb with FWW step to pattern 70 feet including turns level surfaces, Balance: [] Static Sitting: good Dynamic Sitting: Fair Static Standing: Fair with BUE support Dynamic Standing: Poor +/Fair - with BUE support Special Tests: [] Mobility Limitations Standardized Measure [] [facility] AM-PAC 6 clicks Basic Mobility Inpatient Short Form: [] Raw Score:15 CMS Score: 57.70% Informed Consent/Education: Patient instructed in purpose of PT consult. Assessment: Patient is an 89 yo presents with clinical signs and symptoms consistent with current/admitting diagnoses that have resulted to mobility limitations, gait instability, generalized weakness, and impairment of motor control as demonstrated by the following impairment level findings: 1. Decreased strength to left LE major muscle groups 2. Impaired standing balance 3. Limitation of joint range of motion in left hip 4. Impaired functional activity tolerance 5. Pain left hip with flexion and abd/add 6. Restriction/ Precaution of LLE No Active hip abduction and no Passive hip ADDuction Impairments are contributing to the following functional limitations: 1. Inability to safely ambulate without assistive device 2. Increase completion time for mobility ADL performance 3. Increased fall risk 4. decline in bed mobility skills 5. decline in transfer skills 6. inability to perform stairs to safely enter exit home Patient is assessed as a moderate complexity based on the following: History: 89-year-old male with impairment level findings, functional limitations, and past medical history as indicated above Examination: Demonstrable impairment in strength, balance, and mobility level with underlying impairments and functional limitations as documented above Presentation:evolving Decision Making: moderate Goals: 1. Independent supine to sit via right side of bed 2. Independent sit to supine via right side of bed with leg tamping machine operator 3. Independent transfers with least restrictive device 4. Modified independent with least restrictive device ambulating greater than 150 feet maintaining weightbearing 5. SBA 2 steps x 2 with rail to safely enter and exit home maintaining weightbearing 6. Independent HEP with written instructions 7. Patient will demonstrate independent carryover of no active abduction left lower extremity Plan of Care/Treatment Plan: 1-2x/day, 7 days/week x 1 week. Plan of care has been reviewed with the ODD TICKET CLERK providing the service under Physical Therapy direction. Initiate Physical Therapy intervention for strengthening, bed mobility, transfers, gait, stairs, balance training, use of assistive device. DISCHARGE RECOMMENDATIONS: admit to hospital from ED then Short term SNF vs HHPT depending on his ability to progress toward goals. TREATMENT CODE/TIME: 18729, 16266/ [id number] Thank you for the opportunity to participate in the care of this patient. Iliana Diaz, PT [facility]
--- NOTE | 2025-02-17 16:30 | W.PM.HP.N ---
Date of service: 02/17/25 Time of Service: 17:00 Assessment and Plan Assessment and plan (1) Closed fracture of greater trochanter of left femur: Status: Acute Assessment and plan: Per Dr Huerta, orthopedic surgery: Recommend nonoperative management: For about 6-8 weeks, protected weightbearing with crutches. Avoid active abduction, avoid passive adduction past neutral. Follow-up outpatient orthopedic surgery. PT evaluation showing gait instability and weakness, unsafe to return home at this time. Admit on observation for additional PT evaluation and placement. VTE chemoprophylaxis: enoxaparin (2) Insomnia: Status: Acute Assessment and plan: Melatonin at bedtime. History of Present Illness History of Present Illness Chief Complaint: left hip pain Narrative: Cristóbal Bianchi is an 89 year old man presenting February 17 with left hip pain. He reports that he fell out of bed 2 days prior to arrival and has had discomfort and pain since. He has a history of left hip replacement. He has been ambulating for 2 days and the pain has been worsening. He has not taken anything for pain. He came in because he is worried about damage to his hip hardware. No chest pain, no SOB, no abdominal pain, no N/V/D. In the ED he was hypertensive 194/85, vitals otherwise normal. CXR with RML density needing additional followup, no acute findings. LLE XR series showing left hip prosthesis intact, likely prior fracture in greater trochanter, moderate knee degeneration. CT LLE showed nondisplaced transverse fracture of greater trochanter. Ortho and PT were consulted in the ED. Ortho not recommending intervention. PT recommending admit for SNF vs HHPT placement. PFSH All Active Problems (Updated 02/17/25 @ 18:54 by Yvan Mac MD) Insomnia (Acute) Fracture of greater trochanter of left femur (Acute) Lesion of skin of scalp (Acute) Closed fracture of greater trochanter of left femur (Acute) Cerumen impaction (Acute) Tinea corporis (Acute) Small bowel obstruction (Acute) Goals of care, counseling/discussion (Acute) Hydronephrosis (Acute) Atelectasis (Acute) Ascites (Acute) Hypoalbuminemia (Acute) Leukocytosis (Acute) Transaminitis (Acute) SBO (small bowel obstruction) (Acute) Anemia due to acute blood loss (Acute) Upper GI bleeding (Acute) Staphylococcus aureus bacteremia (Acute) Atrial fibrillation with rapid ventricular response (Acute) Elevated troponin I level (Acute) Rhabdomyolysis (Acute) Dehydration (Acute) Snoring (Chronic) 01/2018: declines Sleep Medicine eval; 06/2019: continues to decline 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) Heel pain, chronic (Chronic) Paresthesia of hand (Chronic 01/25/14) L>>R, nocturnal, ?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 (also h/o laceration L thumb); 03/2014: CTS L>R (h/o nerve condution [place] 1999); 11/2015 no worse, 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 Hyperlipidemia (Chronic 10/29/14) risk calc 45.8% with BP 180 10/29/14; declines meds; Lifestyle: eats lots of fish, fruit, veg, blue berries, no sugar Essential hypertension (Chronic 03/22/14) declines ANY medications consistently Atopic dermatitis (Chronic 07/13/13) 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 No problems noted. 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 Working smoke detector in home: Yes Carbon monox detector in home: Yes Do you feel safe at home: Yes Do you feel safe in your relationship?: Yes Meds Allergies and Home Medications Allergies Allergy/AdvReac Type Severity Reaction Status Date / Time hydrochlorothiazide AdvReac Intermediate urinary Unverified 02/01/25 08:56 frequency, leg cramps losartan AdvReac Intermediate Other (See Verified 02/01/25 08:56 Comment) CATS Allergy Severe BREATHING, Uncoded 02/01/25 08:56 SNEEZING, BURNING EYES Home Medications Medication Instructions Recorded Confirmed Type melatonin-pyridoxine HCl (vitamin 3 mg PO HS 07/27/14 02/17/25 History B6) 3 mg-10 mg tablet multivit with 1 ea PO DAILY 06/17/15 02/17/25 History jaw-whqu-WL-#[id number] 18 mg iron-800 mcg-150 mg tablet (Vitamin D3 Complete) Beet Cap 1 - 2 cap PO DAILY PRN 06/19/17 02/17/25 History Beet Power 2 ea PO DAILY PRN 06/19/17 02/17/25 History ascorbic acid (vitamin C) 500 mg 500 mg PO DAILY 06/19/17 02/17/25 History tablet (Vitamin C) vitamin B complex 1 ea PO DAILY PRN 06/19/17 02/17/25 History zinc 50 mg tablet 50 mg PO DAILY PRN 06/19/17 02/17/25 History saw palmetto-pumpkin seed oil 160 160 mg PO DAILY 07/11/17 02/17/25 History mg capsule fluconazole 150 mg tablet 150 mg PO QWEEK #4 tabs 01/08/24 02/17/25 Rx terbinafine HCl 1 % topical cream 1 applic topical DAILY rash #30 02/14/24 02/17/25 Rx grams Exam Narrative Exam Narrative: General: This is a pleasant man in no distress HEENT: Normocephalic. Healing right scalp eschar. CV: RRR Resp: CTAB Abd: soft, NTND MSK: voluntary motion x4. Pain at lateral left hip and lateral left knee. Neuro: awake, alert, no focal deficits Results Labs 02/17/25 10:00 02/17/25 10:00 Labs: Laboratory Results - last 24 hr 02/17/25 10:00 WBC 10.64 RBC 5.18 Hgb 15.7 Hct 46.0 MCV 89 MCH 30.3 MCHC 34.1 RDW 13.3 Plt Count 205 MPV 10.4 Immature Gran % 0.4 Neutrophils % 73.8 Lymphocytes % 14.6 Monocytes % 10.5 Eosinophils % 0.4 Basophils % 0.3 Nucleated RBC % 0.0 Absolute Neutrophils 7.86 H Absolute Lymphocytes 1.55 Absolute Monocytes 1.12 H Absolute Eosinophils 0.04 Absolute Basophils 0.03 Sodium 139 Potassium 3.8 Chloride 101 Carbon Dioxide 25.1 Anion Gap 12.9 H BUN 12 Creatinine 1.0 Est GFR (CKD-EPI 2020) 72.39 Glucose 89 Calcium 9.6 Last Vital Signs Temp 37.2 C 02/17/25 08:42 Pulse 77 02/17/25 16:20 Resp 16 02/17/25 10:24 BP 144/67 H 02/17/25 16:01 Pulse Ox 94 02/17/25 16:20 Time Spent Time spent with Patient: 40-54 minutes Time was spent: preparing to see the patient(eg.review tests), obtaining and/or reviewing separately otained hiistory, ordering medications,tests, procedures, referring, communicating with other health floor care specialist, indepentently interpreting results, counseling the patient and care coordination
--- NOTE | 2025-02-17 17:36 | W.PC.ACHO ---
Registration Status: REG ER Primary Language: Preferred Language: Romanian ED Information & Data Chief Complaint Orthopedic 02/17/25 08:48 Chief Complaint Orthopedic 02/17/25 08:42 Triage Note Pt reports that he fell out 02/17/25 08:42 of bed 2 days ago- has been walking on it for a few days - reports his left hip hurts - does have hardware in that hip Medical / Surgical History (Last Updated 10/09/23 @ 11:18 by Luisa Lu APRN) Severe uncontrolled hypertension Cellulitis and abscess of hand Sepsis (Last Reviewed 03/13/23 @ 19:45 by Vicky Baldwin MD) Hx of appendectomy Hx of lumbar discectomy History of total left hip arthroplasty Endoscopic Carpal Tunnel release (07/15/17) Most Recent Vital Signs Temperature 37.2 C 02/17/25 08:42 Temperature Source Tympanic 02/17/25 08:42 Pulse 74 02/17/25 17:20 Respiratory Rate 16 02/17/25 10:24 Blood Pressure 161/95 H 02/17/25 17:00 Blood Pressure Mean 103 02/17/25 17:00 Blood Pressure Position Sitting 02/17/25 08:42 Pulse Oximetry 94 02/17/25 17:10 Oxygen Delivery Method Room Air 02/17/25 10:24 Oxygen Flow Rate 0 02/17/25 10:24 Pain Level 0 02/17/25 15:43 Allergies hydrochlorothiazide Adverse Reaction (Intermediate, Unverified 02/01/25 08:56) urinary frequency, leg cramps only tried #2 days at 12.5 mg 03/2014, pt doesn't remember losartan Adverse Reaction (Intermediate, Verified 02/01/25 08:56) Other (See Comment) increased urination, SOB CATS Allergy (Severe, Uncoded 02/01/25 08:56) BREATHING, SNEEZING, BURNING EYES loses strength (like Superman with kryptonite!) Precautions Isolation Standard precaution 02/17/25 08:48 IV IV Catheter Type [Left Forearm Saline Lock ] IV Catheter Gauge [Left 20 Forearm] Diet Orders Category Date Time Status Regular/Normal [DIET] Nutrition 02/17/25 Dinner Active Diagnostics 02/17/25 Range/Units 10:00 WBC 10.64 (4.4-10.8) 10^3/uL RBC 5.18 (4.36-5.78) 10^6/uL Hgb 15.7 (13.5-17.5) g/dL Hct 46.0 (40.0-50.0) % MCV 89 (80-95) fL MCH 30.3 (27.0-33.0) pg MCHC 34.1 (32.0-36.0) % RDW 13.3 (11.8-14.1) % Plt Count 205 (130-400) 10^3/uL MPV 10.4 (8.0-11.0) fL Immature Gran % 0.4 % Neutrophils % 73.8 % Lymphocytes % 14.6 % Monocytes % 10.5 % Eosinophils % 0.4 % Basophils % 0.3 % Nucleated RBC % 0.0 (0.0-0.3) % Absolute Neutrophils 7.86 H (1.2-6.7) 10^3/uL Absolute Lymphocytes 1.55 (1.2-3.4) 10^3/uL Absolute Monocytes 1.12 H (0.1-0.8) 10^3/uL Absolute Eosinophils 0.04 (0.0-0.7) 10^3/uL Absolute Basophils 0.03 (0.0-0.2) 10^3/uL Sodium 139 (136-145) mmol/L Potassium 3.8 (3.5-5.1) mmol/L Chloride 101 (98-107) mmol/L Carbon Dioxide 25.1 (21.0-32.0) mmol/L Anion Gap 12.9 H (3-11) mmol/L BUN 12 (7-18) mg/dL Creatinine 1.0 (0.70-1.30) mg/dL Est GFR (CKD-EPI 2020) 72.39 (mL/min/1.73m2) Glucose 89 (74-106) mg/dL Calcium 9.6 (8.5-10.1) mg/dL Intake and Output - 24 Hour Total 02/17/25 08:32 thru 02/17/25 16:05 Intake Total 210 Balance 210 Weight 81.647 kg Intake: IV 10 Oral 200 Falls Risk Assessment History of Falls Admit Due to Fall 02/17/25 08:52 Contributing Factors Impairments 02/17/25 08:52 Ambulatory Aids Uses ambulatory device 02/17/25 08:52 Tubes/Lines None 02/17/25 08:52 Gait Evaluation W/no contributing factors 02/17/25 08:52 Cognition No cognitive impairment 02/17/25 08:52 Fall Total Score 53 02/17/25 08:52 Level of Risk High Risk 02/17/25 08:52 Problems (Last Updated 10/09/23 @ 11:18 by Luisa Lu APRN) Fracture of greater trochanter of left femur (Acute) Lesion of skin of scalp (Acute) Closed fracture of greater trochanter of left femur (Acute) v v v v v v v v v Sending and/or Receiving Nurses: Please use comment section below to note any information pertinent to the patient hand-off not included above. Information / Comments: Pt is here for fall at home resulting in a Fx of the greater trocanter of the L hip, non displaced and nonsurgical. Pt is a/ox 4 and slightly forgetful at times. Pt had PT evaluation in ED. Here for pain control. Settiled into room and call felix left within reach. Report received from: [facility]
[2025-02-17] MEDS: Normal Saline Flush 10 ML SYR IVP (20:05)
[2025-02-17] MEDS: Melatonin 3 MG TAB PO (20:05)
[2025-02-18 03:12] VITALS: BP 150/79; PULSE 75; RESP 18; TEMP 36.6; O2SAT 98
[2025-02-18 06:37] LABS: Abs Immature Grans 0.03 10^3/uL (0.0-0.06); HCT 42.0 % (40.0-50.0); HGB 14.3 g/dL (13.5-17.5); Immature Grans % 0.4 %; MCH 31.1 pg (27.0-33.0); MCHC 34.0 % (32.0-36.0); MCV 91 fL (80-95); MPV 10.5 fL (8.0-11.0); Platelet Count 179 10^3/uL (130-400); RBC 4.60 10^6/uL (4.36-5.78); RDW 13.7 % (11.8-14.1); RDW-SD 46.5 fL; WBC 8.31 10^3/uL (4.4-10.8)
[2025-02-18 06:53] LABS: ALT 22 U/L (16-63); AST 13 U/L (15-37); Albumin 3.1 g/dL (3.4-5.0); Alkaline Phosphatase 47 U/L (46-116); Anion Gap 8.3 mmol/L (3-11); BUN 15 mg/dL (7-18); Bilirubin, Total 1.0 mg/dL (0.2-1.0); CO2 26.7 mmol/L (21.0-32.0); Calcium 8.6 mg/dL (8.5-10.1); Chloride 103 mmol/L (98-107); Glucose 90 mg/dL (74-106); Magnesium 1.9 mg/dL (1.8-2.4); Potassium 3.6 mmol/L (3.5-5.1); Sodium 138 mmol/L (136-145); Total Protein 6.4 g/dL (6.4-8.2)
[2025-02-18 07:00] VITALS: BP 126/66; PULSE 90; RESP 16; TEMP 36.2; O2SAT 97
[2025-02-18 08:08] VITALS: BP 126/66; PULSE 90; RESP 16; TEMP 36.8; O2SAT 97
--- NOTE | 2025-02-18 08:25 | PT.INTREAT ---
PT Notes Visit Reasons: non-op hip fracture Inpatient Physical Therapy Treatment Note [facility] Date:02/18/2025 PRECAUTIONS:protected weight bearing as tolerated with device. Avoid active abduction, avoid passive adduction past neutral. SUBJECTIVE: Pt reports he wants to go home today OBJECTIVE: [] PAIN: 4/10 left hip with transitions VITALS: monitored by Nursing Therapeutic Activities ([id number][]): Direct one-on-one instruction in dynamic activities to improve functional performance. BED MOBILITY/TRANSFERS Supine-sit: min A Sit-supine:min A Sit-stand: SBA Stand-sit:SBA Bed-Chair: SBA with FWW Chair-bed: SBA with FWW Provided skilled cues and instruction on performance and technique throughout. -1st session Facilitated safe and correct performance of level surface ambulation covering a distance of 100 feet using use front wheeled walker with SBA Did not report of any increased pain. Denied headache, chest pain, and lightheadedness throughout activity. Minimal verbal cueing provided for AD management, directional changes, and posture. 2nd session Facilitated safe and correct performance of level surface ambulation covering a distance of 100 feet using use front wheeled walker with SBA. Did not report of any increased pain. Denied headache, chest pain, and lightheadedness throughout activity. Minimal verbal cueing provided for AD management, directional changes, and posture. STAIRS: 3 4 steps and 2 6 steps with rails SBA with continuous cues for sequencing step to pattern ASSESSMENT: Pt demonstrates significant improvement in mobility as compared to evaluation. Pain is managed and pt able to perform bed mobility with minimal discomfort. He able to perform transitions now with less discomfort. He demonstrated ability to perform stairs with CGA with a railing. Pt to be discharged to home with his son providing transportation and supervision. Pt's son was able to retrieve his FWW from the attic. PLAN: 1-2x/day, 7 days/week x 1 week. Plan of care has been reviewed with the OFF TRACK BETTING MANAGER providing the service under Physical Therapy direction. Initiate Physical Therapy intervention for strengthening, bed mobility, transfers, gait, stairs, balance training, use of assistive device. TREATMENT CODE/TIME: 28909/ [id number] 2nd session: 27652/ [id number] DISCHARGE RECOMMENDATION: Home with HHPT when medically appropriate
--- NOTE | 2025-02-18 08:50 | INITIAL_ITS ---
Date of service: 02/18/25 Time of Service: 08:50 Care Management Initial Assmt Initial Assessment Reason for Hospitalization: Non-Op hip fracture Functional Status/Living Situation Patient Presentation: Cristóbal was alert and sitting in the chair when CM met with him. He is accompanied by his son Ulises whom is up from [place]. Mims son Nishant lives in [place] and son Fernando is in [place]. All are supportive, but live out of state. Resides alone in [place] and is looking to go home today, he is agreeable to [facility]. Pt recommends home with new [facility]. He is reportedly doing much better, Ulises is planning tp make sure he is settled in a home after discharge before returning to [place]. 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: Y 02/17/25, 09:01 Date Asked 10/28/21 02/17/25, 09:01 AD Date Reviewed 02/17/25 02/17/25, 09:01 COLST On File at [facility] COLST Date Scanned Code Status Resuscitation Status Full Code Insurance Coverage/Financial Issues Insurance: [employer] [facility] Replacement - [id number] Care Team Visit Care Team Role Provider Type Ruben Henson MD [facility] STAFF PHYSICIAN Luisa Lu APRN Primary Care Provider NURSE PRACTITIONER InPatient Nishant Ralph Other Providers OTHER Ruben Flor MD Emergency Provider [facility] STAFF PHYSICIAN Yvan Mac MD Admit Provider [facility] STAFF PHYSICIAN Attending Provider Discharge Potential Discharge Needs: PCP F/U Appt Anticipated Barriers to Discharge: None Identified Patient/Family Education Needs: Review discharge instructions, discuss Ask Me Three Transportation: Private vehicle Plan: Anticipate Cristóbal will be discharged home with [facility] once medically ready. He will follow up with his PCP/community providers and continue per his discharge plan of care. Cristóbal declines a referral to [facility] at this time. Social Determinants of Health Screening Social Determinants of health last assessed in clinic: 02/18/25 Will the Patient Participate in the Screening?: Yes Do you worry about having a steady place to live?: no Problems where you live: no known problems In the past 12 months, have you had to go without electric, gas, oil or water in your home?: no 1. Within the past 12 months, we worried whether our food would run out before we got money to buy more.: Never true 2. Within the past 12 months, the food we bought just didn't last and we didn't have money to get more.: Never true Has lack of transportation kept you from medical appointments or from doing things needed for daily living?: no Has anyone in your life made you feel unsafe or unsupported?: no How hard is it for you to pay for the very basics like food, housing, medical care, and heating? Would you say it is:: Not hard at all Do you want help finding or keeping work or a job?: I do not need or want help If for any reason you need help with day-to-day activities such as bathing, preparing meals, shopping, managing finances, etc., do you get the help you need?: I don’t need any help How often do you feel lonely or isolated from those around you?: Never Do you speak a language other than Guinean at home?: No Does the patient want assistance with any of the above?: No PFSH All Active Problems (Updated 02/17/25 @ 18:54 by Yvan Mac MD) Insomnia (Acute) Fracture of greater trochanter of left femur (Acute) Lesion of skin of scalp (Acute) Closed fracture of greater trochanter of left femur (Acute) Cerumen impaction (Acute) Tinea corporis (Acute) Small bowel obstruction (Acute) Goals of care, counseling/discussion (Acute) Hydronephrosis (Acute) Atelectasis (Acute) Ascites (Acute) Hypoalbuminemia (Acute) Leukocytosis (Acute) Transaminitis (Acute) SBO (small bowel obstruction) (Acute) Anemia due to acute blood loss (Acute) Upper GI bleeding (Acute) Staphylococcus aureus bacteremia (Acute) Atrial fibrillation with rapid ventricular response (Acute) Elevated troponin I level (Acute) Rhabdomyolysis (Acute) Dehydration (Acute) Snoring (Chronic) 01/2018: declines Sleep Medicine eval; 06/2019: continues to decline 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) Heel pain, chronic (Chronic) Paresthesia of hand (Chronic 01/25/14) L>>R, nocturnal, ?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 (also h/o laceration L thumb); 03/2014: CTS L>R (h/o nerve condution [place] 2000); 11/2015 no worse, 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 Hyperlipidemia (Chronic 10/29/14) risk calc 45.8% with BP 180 10/29/14; declines meds; Lifestyle: eats lots of fish, fruit, veg, blue berries, no sugar Essential hypertension (Chronic 03/22/14) declines ANY medications consistently Atopic dermatitis (Chronic 07/13/13) 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 No problems noted. 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
[2025-02-18] MEDS: Ascorbic Acid 500 MG TAB PO (09:46)
--- NOTE | 2025-02-18 12:33 | DSE_ITS ---
Date of service: 02/18/25 Time of Service: 12:33 DS: Diagnosis Discharge Diagnosis (1) Closed fracture of greater trochanter of left femur: Status: Acute (2) Insomnia: Status: Acute Discharge Plan Disposition Patient Disposition: Home W/Home Health Services Condition: Improving Discharge Details Reason For Visit: Non-op Hip Fracture Admit Date/Time: 02/17/25 16:25 Admit Provider: Yvan Mac Attending Provider: Yvan Mac Primary Care Provider: Luisa Lu Hospital Course Hospital Course: Cristóbal Bianchi is an 89 year old man with history of left hip replacement who presented February 17 with 2 days of left hip pain after falling out of bed. XR showed greater trochanter fracture but prosthesis intact. He was evaluated by Dr Huerta from orthopedic surgery who recommended nonoperative management with 6- 8 weeks of protected weightbearing with crutches. He should avoid active abduction and passive adduction past neutral and follow-up outpatient orthopedic surgery. His pain was not significant even with activity by the date of discharge, and he did not ask for the as needed oxycodone. He did well with physical therapy, who recommended home health PT. Home Meds and New Rx's Prescriptions: New acetaminophen [Acetaminophen Extra Strength] 500 mg tablet 500 mg PO Q6H PRNQty: 90 0RF Continued fluconazole 150 mg tablet 150 mg PO QWEEK Qty: 4 0RF terbinafine HCl 1 % cream 1 applic topical DAILY Qty: 30 2RF Rx Instructions: apply to itchy rash every morning for 1 month melatonin-pyridoxine HCl (B6) 1 EACH tablet 3 mg PO HS Vitamin D3 Complete 1 EACH tablet 1 ea PO DAILY Patient Comments: takes vitamin B, C, D, E ascorbic acid (vitamin C) [Vitamin C] 500 MG tablet 500 mg PO DAILY zinc 50 MG tablet 50 mg PO DAILY PRN vitamin B complex 1 EACH capsule 1 ea PO DAILY PRN Patient Comments: 10/09/17 Does not take regularly. zn Rx Instructions: Takes irregularly Beet Cap 1 - 2 cap PO DAILY PRN Beet Power 2 ea PO DAILY PRN saw palmetto-pumpkin seed oil 160 MG capsule 160 mg PO DAILY Discharge Instructions Additional Instructions: Continue physical therapy and limited weight bearing on the left hip as recommended by orthopedics You can take acetaminophen as needed for pain Referrals: Shilo Huerta MD [ [facility] STAFF PHYSICIAN, Orthopaedic Surgical] Activity:: protected weight bearing Equipment/Supplies:: Walker Diet:: As Tolerated Discharge Orders Discharge Orders: Discharge Order (Routine); Ordered 02/18/25 Ordered By: Ruben Henson DS: Summary Time Spent with Patient providing and/or coordinating discharge services: Greater than 30 minutes Status at Discharge Functional status at discharge: uses cane/walker Overall status at discharge: patient is progressing back to baseline Mental Status: mental status grossly normal Speech and Movement: speech and movement normal Mood: congruent mood Affect: normal affect Exam Narrative Exam Narrative: General: This is a pleasant man in no distress HEENT: Normocephalic. Healing right scalp eschar. CV: RRR Resp: CTAB Abd: soft, NTND MSK: voluntary motion x4. Pain at lateral left hip and lateral left knee. abrasion right [place] Neuro: awake, alert, no focal deficits Psych Mental Status: mental status grossly normal Speech and Movement: speech and movement normal Mood: congruent mood Affect: normal affect DS: Data Vitals/I&O Vitals and I&O: Vital Signs Temperature 36.8 C 02/18/25 08:08 Temperature Source Temporal Artery Scan 02/18/25 08:08 Pulse 90 02/18/25 08:08 Pulse Rhythm Regular 02/17/25 18:34 Respiratory Rate 16 02/18/25 08:08 Respiratory Effort Normal 02/17/25 18:34 Respiratory Depth Normal 02/17/25 18:34 Respiratory Pattern Normal 02/17/25 18:34 Blood Pressure 126/66 02/18/25 08:08 Blood Pressure Mean 86 02/18/25 08:08 Blood Pressure Position Sitting 02/17/25 08:42 Pulse Oximetry 97 02/18/25 08:08 Oxygen Delivery Method Room Air 02/18/25 08:08 Oxygen Flow Rate 0 02/18/25 08:08 Pain Level 0 02/17/25 15:43 Comment RN in room 02/17/25 17:57 Intake & Output 02/17/25 02/18/25 02/18/25 23:59 11:59 23:59 Intake Total 210 / 210 480 / 480 Output Total 300 / 300 350 / 350 Balance -90 / -90 130 / 130 Intake: IV Oral 200 / 200 480 / 480 Output: Urine 300 / 300 350 / 350 Other: Urine Color Yellow Yellow Urine Appearance Clear Clear Urine Odor Normal Normal Comment pt had a external catheter, it fell off pt. Stool Size Small Stool Characteristics Formed Data Completed and Pending Pending Labs at Discharge: 02/17/25 02/18/25 10:00 06:00 WBC 10.64 8.31 RBC 5.18 4.60 Hgb 15.7 14.3 Hct 46.0 42.0 MCV 89 91 MCH 30.3 31.1 MCHC 34.1 34.0 RDW 13.3 13.7 Plt Count 205 179 MPV 10.4 10.5 Immature Gran % 0.4 0.4 Neutrophils % 73.8 61.6 Lymphocytes % 14.6 20.0 Monocytes % 10.5 13.0 Eosinophils % 0.4 4.6 Basophils % 0.3 0.4 Nucleated RBC % 0.0 0.0 Absolute Neutrophils 7.86 H 5.13 Absolute Lymphocytes 1.55 1.66 Absolute Monocytes 1.12 H 1.08 H Absolute Eosinophils 0.04 0.38 Absolute Basophils 0.03 0.03 Sodium 139 138 Potassium 3.8 3.6 Chloride 101 103 Carbon Dioxide 25.1 26.7 Anion Gap 12.9 H 8.3 BUN 12 15 Creatinine 1.0 0.9 Est GFR (CKD-EPI 2020) 72.39 82.15 Glucose 89 90 Calcium 9.6 8.6 Magnesium 1.9 Total Bilirubin 1.0 AST 13 L ALT 22 Alkaline Phosphatase 47 Total Protein 6.4 Albumin 3.1 L PFSH All Active Problems (Updated 02/17/25 @ 18:54 by Yvan Mac MD) Insomnia (Acute) Fracture of greater trochanter of left femur (Acute) Lesion of skin of scalp (Acute) Closed fracture of greater trochanter of left femur (Acute) Cerumen impaction (Acute) Tinea corporis (Acute) Small bowel obstruction (Acute) Goals of care, counseling/discussion (Acute) Hydronephrosis (Acute) Atelectasis (Acute) Ascites (Acute) Hypoalbuminemia (Acute) Leukocytosis (Acute) Transaminitis (Acute) SBO (small bowel obstruction) (Acute) Anemia due to acute blood loss (Acute) Upper GI bleeding (Acute) Staphylococcus aureus bacteremia (Acute) Atrial fibrillation with rapid ventricular response (Acute) Elevated troponin I level (Acute) Dehydration (Acute) Rhabdomyolysis (Acute) Heel pain, chronic (Chronic) 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) Snoring (Chronic) 01/2018: declines Sleep Medicine eval; 06/2019: continues to decline Paresthesia of hand (Chronic 01/25/14) L>>R, nocturnal, ?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 (also h/o laceration L thumb); 03/2014: CTS L>R (h/o nerve condution [place] 2000); 11/2015 no worse, 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 Hyperlipidemia (Chronic 10/29/14) risk calc 45.8% with BP 180 10/29/14; declines meds; Lifestyle: eats lots of fish, fruit, veg, blue berries, no sugar Essential hypertension (Chronic 03/22/14) declines ANY medications consistently Atopic dermatitis (Chronic 07/13/13) 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 No problems noted. 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
--- NOTE | 2025-02-18 12:35 | PDOC.HHF2F_ITS ---
Date of service: 02/18/25 Time of Service: 12:35 Home Health Referral Home Health Orders Clinical synopsis of why skilled professionals are needed: Cristóbal Bianchi is an 89 year old man with history of left hip replacement who presented February 17 with 2 days of left hip pain after falling out of bed. XR showed greater trochanter fracture but prosthesis intact. He was evaluated by Dr Huerta from orthopedic surgery who recommended nonoperative management with 6- 8 weeks of protected weightbearing with crutches. He should avoid active abduction and passive adduction past neutral and follow-up outpatient orthopedic surgery. His pain was not significant even with activity by the date of discharge, and he did not ask for the as needed oxycodone. He did well with physical therapy, who recommended home health PT. Medical diagnosis necessitation home health referral: closed trochanteric femur fracture Physical Therapist: Check all that apply Increase strength & endurance for safe mobility at home: Ordered To design/establish home maintenance program: Ordered Home safety evaluation and teaching/gait training including stair management (if applicable): Ordered Home Bound Status Requires the aid of supportive device (check all that apply): Crutches and Walker Describe why leaving home would require a considerable and taxing effort: Requires frequent rest periods Encounter Date and Reason: I certify that a FTF encounter for this patient was performed on February 18, 2025 and that such encounter was related to the primary reason the patient requires home health services. The encounter was conducted in the following manner: * By me as the certifying physician, COIN MACHINE SERVICER REPAIRER, PA or * By an inpatient physician, COIN MACHINE SERVICER REPAIRER or PA during an inpatient stay who communicated findings to me, Certification And Authentication I certify that I composed the above information based on my clinical judgment relating to this patient's medical condition and, if applicable, clinical findings communicated to me by the NPP or inpatient physician who performed the FTF encounter. Name of Provider that will be monitoring home health services: Luisa Lu
--- NOTE | 2025-02-18 13:28 | PDOC.CMDIS ---
Date of service: 02/18/25 Time of Service: 13:28 Care Management Discharge Plan Reason for Hospitalization: Non-op hip fracture Discharge Plan: Cristóbal is discharged home with [facility]. He will follow up with his PCP/community providers and continue per his discharge plan of care. Cristóbal declines a referral to [facility] at this time. Patient/Family Education Needs: Review discharge instructions, recommendations, and plan to follow up after discharge. Discuss as me three. Services Needed at Discharge: Home Health Care Services ([facility], CM notified [facility])
== END 2025-02-18 13:33 | disposition home health service (06) ==
LOC: ER 13:48 → MS 18:36
PROVIDERS: Admitting Provider Family Medicine; Emergency Provider Emergency Medicine; PCP Nurse Practitioner Family; Responsible Provider Family Medicine; Visit Provider Family Medicine
DX: S72.112A Displaced fracture of greater trochanter of left femur, initial encounter for closed fracture (principal); Z96.642 Presence of left artificial hip joint; I48.91 Unspecified atrial fibrillation; E78.5 Hyperlipidemia, unspecified; I10 Essential (primary) hypertension; R20.2 Paresthesia of skin; Z87.891 Personal history of nicotine dependence; G47.00 Insomnia, unspecified; W06.XXXA Fall from bed, initial encounter; R91.8 Other nonspecific abnormal finding of lung field; Z79.899 Other long term (current) drug therapy
CPT/HCPCS: 00123; 36415; 73552; 73562; 80048; 80053; 97162; 97530; 99222; 99285; 71045; 72170; 73700; 83735; 85025; 99238; G0378